=== PATIENT | male | born 1955 | race Caucasian/White ===

== ENCOUNTER 2017-07-30 05:37 | Emergency (ER) | payer BC ==
[2017-07-30 06:53] LABS: BILIRUBIN,URINE NEGATIVE (NEG); GLUCOSE,URINE NEGATIVE (NEG); NITRITE,URINE NEGATIVE (NEG); PH,URINE 5.5; PROTEIN,URINE 30 mg/dL (NEG-TRACE); UROBILINOGEN,URINE 0.2 mg/dL (0.2 mg/dL)
[2017-07-30 07:07] LABS: RBC,URINE TNTC /HPF (0-2)
[2017-07-30 07:08] LABS: ADD MAN DIFF? NO; BACTERIA,URINE FEW /HPF (0-FEW); WBC,URINE OCC /HPF (0-4)
[2017-07-30 07:11] LABS: BASO % 0 % (0-3); EOS % 0 % (0-3); HEMATOCRIT 44.7 % (39.0-53.0); HEMOGLOBIN 15.1 g/dL (13.0-17.5); LYMPH % 13 % (24-48); MEAN CORPUSCULAR HEMOGLOBIN 31 pg (25-35); MEAN CORPUSCULAR HGB CONC 34 g/dL (31-37); MEAN CORPUSCULAR VOLUME 93 fL (79-100); MONO % 13 % (0-9); NEUT % 74 % (31-73); PLATELET COUNT 214 x10^3/uL (140-400); RED BLOOD COUNT 4.82 x10^6/uL (4.30-5.70); RED CELL DISTRIBUTION WIDTH 12.5 % (11.5-14.5); WHITE BLOOD COUNT 8.2 x10^3/uL (4.0-11.0)
[2017-07-30] MEDS: MORPHINE SULFATE 4 MG/ML DISP.SYRIN. IV (07:11)
[2017-07-30 07:20] LABS: ANION GAP 11 (6-14); BLOOD UREA NITROGEN 13 mg/dL (8-26); BUN/CREATININE RATIO 11 (6-20); CALCIUM 8.5 mg/dL (8.5-10.1); CARBON DIOXIDE 29 mmol/L (21-32); CHLORIDE 101 mmol/L (98-107); CREATININE 1.2 mg/dL (0.7-1.3); GFR 61.1; GLUCOSE 161 mg/dL (70-99); POTASSIUM 4.4 mmol/L (3.5-5.1); SODIUM 141 mmol/L (136-145)
[2017-07-30 07:25] LABS: ALBUMIN 3.7 g/dL (3.4-5.0); ALBUMIN/GLOBULIN RATIO 0.8 (1.0-1.7); ALK PHOS 73 U/L (46-116); ALT (SGPT) 36 U/L (16-63); AST (SGOT) 33 U/L (15-37); TOTAL BILIRUBIN 0.4 mg/dL (0.2-1.0); TOTAL PROTEIN 8.1 g/dL (6.4-8.2)
[2017-07-30] MEDS: IV NORMAL SALINE 500ML BAG 500 ML IV (08:45)
[2017-07-30] MEDS: KETOROLAC 30 MG/ML INJ. IV (08:49)
== END 2017-07-30 09:30 | disposition home or self-care (01) ==
LOC: ER 05:37
DX: N20.0 Calculus of kidney (principal); Z86.73 Personal history of transient ischemic attack (TIA), and cerebral infarction without residual deficits
CPT/HCPCS: 36415; 51702; 74176; 80053; 81001; 85025; 96361; 96374; 96375; 99285-25; J1885; J2270; J7040

== ENCOUNTER 2017-09-15 01:29 | Inpatient (IN) | payer BC ==
[2017-09-15 01:37] LABS: POC GLUCOSE 121 mg/dL (70-99)
[2017-09-15 01:51] LABS: ADD MAN DIFF? NO
[2017-09-15 01:56] LABS: BASO # 0.1 x10^3/uL (0.0-0.2); BASO % 1 % (0-3); EOS # 0.2 x10^3/uL (0.0-0.7); EOS % 2 % (0-3); HEMATOCRIT 42.8 % (39.0-53.0); HEMOGLOBIN 14.8 g/dL (13.0-17.5); LYMPH # 3.2 x10^3/uL (1.0-4.8); LYMPH % 35 % (24-48); MEAN CORPUSCULAR HEMOGLOBIN 32 pg (25-35); MEAN CORPUSCULAR HGB CONC 35 g/dL (31-37); MEAN CORPUSCULAR VOLUME 93 fL (79-100); MONO # 1.1 x10^3/uL (0.0-1.1); MONO % 12 % (0-9); NEUT # 4.5 x10^3uL (1.8-7.7); NEUT % 50 % (31-73); PLATELET COUNT 233 x10^3/uL (140-400); RED BLOOD COUNT 4.61 x10^6/uL (4.30-5.70); RED CELL DISTRIBUTION WIDTH 12.7 % (11.5-14.5); WHITE BLOOD COUNT 9.1 x10^3/uL (4.0-11.0)
[2017-09-15 02:08] LABS: ANION GAP 11 (6-14); BLOOD UREA NITROGEN 9 mg/dL (8-26); BUN/CREATININE RATIO 9 (6-20); CALCIUM 8.5 mg/dL (8.5-10.1); CARBON DIOXIDE 26 mmol/L (21-32); CHLORIDE 103 mmol/L (98-107); GFR 75.5; GLUCOSE 134 mg/dL (70-99); POTASSIUM 3.7 mmol/L (3.5-5.1); SODIUM 140 mmol/L (136-145)
[2017-09-15 02:11] LABS: INR 0.9 (0.8-1.1); PARTIAL THROMBOPLASTIN TIME 30 SEC (24-38); PROTHROMBIN TIME PATIENT 11.9 SEC (11.7-14.0)
[2017-09-15 02:14] LABS: ALBUMIN 3.4 g/dL (3.4-5.0); ALBUMIN/GLOBULIN RATIO 0.8 (1.0-1.7); ALK PHOS 111 U/L (46-116); ALT (SGPT) 16 U/L (16-63); AST (SGOT) 9 U/L (15-37); TOTAL BILIRUBIN 0.3 mg/dL (0.2-1.0); TOTAL PROTEIN 7.7 g/dL (6.4-8.2)
[2017-09-15 02:17] LABS: TROPONINI < 0.017 ng/mL (0.000-0.055)
[2017-09-15 02:37] LABS: BILIRUBIN,URINE NEGATIVE (NEG); CLARITY,URINE CLEAR; COLOR,URINE YELLOW; GLUCOSE,URINE 250 mg/dL (NEG); NITRITE,URINE NEGATIVE (NEG); PROTEIN,URINE NEGATIVE (NEG-TRACE); UROBILINOGEN,URINE 0.2 mg/dL (0.2 mg/dL)
[2017-09-15] MEDS ORDERED: LABETALOL 20 MG/4 ML DISP.SYRIN. (02:51)
[2017-09-15] MEDS: LABETALOL 20 MG/4 ML DISP.SYRIN. IVP (02:59)
[2017-09-15 03:03] LABS: BACTERIA,URINE FEW /HPF (0-FEW); RBC,URINE OCC /HPF (0-2); WBC,URINE OCC /HPF (0-4)
[2017-09-15 03:04] LABS: SQUAMOUS EPITHELIAL CELL,UR FEW /LPF
[2017-09-15] MEDS: ALTEPLASE 2 MG VIAL IV (03:11)
[2017-09-15] MEDS: ALTEPLASE 81 MG IV (03:16)
[2017-09-15] MEDS ORDERED: ONDANSETRON PF 4 MG/2 ML VIAL. IV ×2 (03:30→07:45)
[2017-09-15] MEDS ORDERED: MORPHINE SULFATE 2 MG/ML DISP.SYRIN. IV (03:30)
[2017-09-15] MEDS: IV NORMAL SALINE 1000ML BAG 1,000 ML IV ×3 (04:26→23:30)
[2017-09-15] MEDS ORDERED: ACETAMINOPHEN 325 MG SUPP.RECT. PR (07:45)
[2017-09-15] MEDS ORDERED: ACETAMINOPHEN 325 MG TABLET. PO (07:45)
[2017-09-15] MEDS ORDERED: PNEUMOC CONJ VACC 23-VALENT 0.5 ML VIAL. VAX IM (09:00)
[2017-09-15] MEDS ORDERED: CONTRAST GIVEN MC (09:15)
[2017-09-15] MEDS: LOSARTAN POTASSIUM 50 MG TABLET. PO (09:30)
[2017-09-15] MEDS: FLUTICASONE 50MCG/NASAL SPRAY 16GM BOTTLE. NS (09:30)
[2017-09-15] MEDS ORDERED: ALPRAZolam 0.25 MG TABLET PO (09:30)
[2017-09-15] MEDS: ASPIRIN CHEWABLE 81 MG TABLET. PO (09:30)
[2017-09-15] MEDS: METOPROLOL SUCC 24HR ER 100 MG TAB.ER.24H. PO (09:30)
[2017-09-15] MEDS: sulfaSALAzine 500 MG TABLET PO ×2 (09:30→21:04)
[2017-09-15] MEDS: POTASSIUM CHLORIDE 20 MEQ TABLET.ER. PO ×2 (10:00→18:11)
[2017-09-15] MEDS: IOHEXOL 300 MG/ML 100ML VIAL. IV (17:42)
[2017-09-15] MEDS ORDERED: SIMVASTATIN 20 MG TABLET PO (21:00)
[2017-09-15] MEDS: ATORVASTATIN CALCIUM 40 MG TABLET. PO (21:04)
[2017-09-15 23:10] LABS: MRSA BY PCR Negative (Negative)
[2017-09-16 02:50] LABS: ADD MAN DIFF? NO
[2017-09-16 02:54] LABS: BASO # 0.1 x10^3/uL (0.0-0.2); BASO % 1 % (0-3); EOS # 0.2 x10^3/uL (0.0-0.7); EOS % 2 % (0-3); HEMATOCRIT 42.9 % (39.0-53.0); HEMOGLOBIN 14.7 g/dL (13.0-17.5); LYMPH # 2.8 x10^3/uL (1.0-4.8); LYMPH % 35 % (24-48); MEAN CORPUSCULAR HEMOGLOBIN 32 pg (25-35); MEAN CORPUSCULAR HGB CONC 34 g/dL (31-37); MEAN CORPUSCULAR VOLUME 93 fL (79-100); MONO # 0.8 x10^3/uL (0.0-1.1); MONO % 10 % (0-9); NEUT # 4.2 x10^3uL (1.8-7.7); NEUT % 52 % (31-73); PLATELET COUNT 230 x10^3/uL (140-400); RED CELL DISTRIBUTION WIDTH 13.3 % (11.5-14.5)
[2017-09-16 03:11] LABS: ALBUMIN 3.4 g/dL (3.4-5.0); ALBUMIN/GLOBULIN RATIO 0.8 (1.0-1.7); ALK PHOS 66 U/L (46-116); ALT (SGPT) 29 U/L (16-63); ANION GAP 11 (6-14); AST (SGOT) 19 U/L (15-37); BLOOD UREA NITROGEN 8 mg/dL (8-26); BUN/CREATININE RATIO 8 (6-20); CALCIUM 8.4 mg/dL (8.5-10.1); CARBON DIOXIDE 26 mmol/L (21-32); CHLORIDE 102 mmol/L (98-107); CHOLESTEROL 174 mg/dL (0-200); GFR 75.5; GLUCOSE 153 mg/dL (70-99); HDLC 41 mg/dL (40-60); LDLC 89 mg/dL (0-100); NON-HDL CHOLESTEROL 133 mg/dL (0-129); POTASSIUM 3.8 mmol/L (3.5-5.1); SODIUM 139 mmol/L (136-145); TOTAL BILIRUBIN 0.4 mg/dL (0.2-1.0); TOTAL PROTEIN 7.5 g/dL (6.4-8.2); TRIGLYCERIDES 221 mg/dL (0-150); VLDLC 44 mg/dL (0-40)
[2017-09-16 03:12] LABS: CHOLESTEROL/HDL RATIO 4.2
[2017-09-16] MEDS ORDERED: ASPIRIN CHEWABLE 81 MG TABLET. PO (08:00)
[2017-09-16] MEDS: METOPROLOL SUCC 24HR ER 100 MG TAB.ER.24H. PO (09:00)
[2017-09-16] MEDS: sulfaSALAzine 500 MG TABLET PO ×2 (09:00→21:02)
[2017-09-16] MEDS: LOSARTAN POTASSIUM 50 MG TABLET. PO (09:00)
[2017-09-16] MEDS: FLUTICASONE 50MCG/NASAL SPRAY 16GM BOTTLE. NS (13:14)
[2017-09-16] MEDS: CLOPIDOGREL BISULFATE 75 MG TABLET PO (17:12)
[2017-09-16] MEDS: ATORVASTATIN CALCIUM 40 MG TABLET. PO (21:03)
[2017-09-17] MEDS: METOPROLOL SUCC 24HR ER 100 MG TAB.ER.24H. PO (08:35)
[2017-09-17] MEDS: CLOPIDOGREL BISULFATE 75 MG TABLET PO (08:35)
[2017-09-17] MEDS: FLUTICASONE 50MCG/NASAL SPRAY 16GM BOTTLE. NS (08:35)
[2017-09-17] MEDS: LOSARTAN POTASSIUM 50 MG TABLET. PO (08:36)
[2017-09-17] MEDS: sulfaSALAzine 500 MG TABLET PO ×2 (08:36→21:08)
[2017-09-17] MEDS ORDERED: PNEUMOCOCCAL VAX SCREEN BY RX. MC (09:00)
[2017-09-17] MEDS: PNEUMOC CONJ VACC 23-VALENT 0.5 ML VIAL. VAX IM (11:36)
[2017-09-17] MEDS: metFORMIN 500 MG TABLET PO (16:50)
[2017-09-17] MEDS: ATORVASTATIN CALCIUM 40 MG TABLET. PO (21:08)
[2017-09-18] MEDS: FLUTICASONE 50MCG/NASAL SPRAY 16GM BOTTLE. NS (09:00)
[2017-09-18] MEDS: sulfaSALAzine 500 MG TABLET PO (09:42)
[2017-09-18] MEDS: CLOPIDOGREL BISULFATE 75 MG TABLET PO (09:42)
[2017-09-18] MEDS: METOPROLOL SUCC 24HR ER 100 MG TAB.ER.24H. PO (09:42)
[2017-09-18] MEDS: LOSARTAN POTASSIUM 50 MG TABLET. PO (09:43)
[2017-09-18] MEDS: metFORMIN 500 MG TABLET PO (09:43)
== END 2017-09-18 14:20 | DRG 63 ==
LOC: ER 01:29 → 6 SOUTH 09-16 15:27 → 1 WEST ICU 02:44
PROC: 3E03317 Introduction of Other Thrombolytic into Peripheral Vein, Percutaneous Approach (ICD-10-PCS; principal; 2017-09-15)
PROC: 5A09357 Assistance with Respiratory Ventilation, Less than 24 Consecutive Hours, Continuous Positive Airway Pressure (ICD-10-PCS; 2017-09-15)
PROC: 5A09357 Assistance with Respiratory Ventilation, Less than 24 Consecutive Hours, Continuous Positive Airway Pressure (ICD-10-PCS; 2017-09-15)
PROC: 5A09357 Assistance with Respiratory Ventilation, Less than 24 Consecutive Hours, Continuous Positive Airway Pressure (ICD-10-PCS; 2017-09-15)
PROC: 5A09357 Assistance with Respiratory Ventilation, Less than 24 Consecutive Hours, Continuous Positive Airway Pressure (ICD-10-PCS; 2017-09-15)
DX: I63.9 Cerebral infarction, unspecified (principal); E11.51 Type 2 diabetes mellitus with diabetic peripheral angiopathy without gangrene; E66.9 Obesity, unspecified; Z68.39 Body mass index [BMI] 39.0-39.9, adult; E78.00 Pure hypercholesterolemia, unspecified; E78.1 Pure hyperglyceridemia; E78.5 Hyperlipidemia, unspecified; F41.9 Anxiety disorder, unspecified; I10 Essential (primary) hypertension; L40.9 Psoriasis, unspecified; M19.90 Unspecified osteoarthritis, unspecified site; N20.0 Calculus of kidney; Z86.73 Personal history of transient ischemic attack (TIA), and cerebral infarction without residual deficits; Z87.442 Personal history of urinary calculi
CPT/HCPCS: 36415; 37195; 70450; 70496; 70498; 70551; 71045; 80053; 80061; 81001; 82962; 84484; 85025; 85610; 85730; 87641; 90732; 92526-GN; 92610-GN; 93005; 93306; 97110-GO; 97110-GP; 97112-GO; 97116-GP; 97162-GP; 97165-GO; 97530-GO; 97530-GP; 97535-GO; 99291; 99291-25; J2060; J2997; J3490; J7030; Q9967

== ENCOUNTER 2017-10-06 09:20 | Emergency (ER) | payer BC ==
[2017-10-06 09:49] LABS: ADD MAN DIFF? NO
[2017-10-06 09:57] LABS: BASO # 0.1 x10^3/uL (0.0-0.2); BASO % 1 % (0-3); EOS # 0.1 x10^3/uL (0.0-0.7); EOS % 2 % (0-3); HEMATOCRIT 43.4 % (39.0-53.0); HEMOGLOBIN 14.5 g/dL (13.0-17.5); LYMPH # 2.7 x10^3/uL (1.0-4.8); LYMPH % 36 % (24-48); MEAN CORPUSCULAR HEMOGLOBIN 31 pg (25-35); MEAN CORPUSCULAR HGB CONC 33 g/dL (31-37); MEAN CORPUSCULAR VOLUME 93 fL (79-100); MONO # 0.7 x10^3/uL (0.0-1.1); MONO % 10 % (0-9); NEUT # 3.9 x10^3uL (1.8-7.7); NEUT % 51 % (31-73); PLATELET COUNT 279 x10^3/uL (140-400); RED BLOOD COUNT 4.67 x10^6/uL (4.30-5.70); RED CELL DISTRIBUTION WIDTH 12.6 % (11.5-14.5); WHITE BLOOD COUNT 7.5 x10^3/uL (4.0-11.0)
[2017-10-06 10:04] LABS: ANION GAP 6 (6-14); BLOOD UREA NITROGEN 10 mg/dL (8-26); BUN/CREATININE RATIO 9 (6-20); CALCIUM 8.8 mg/dL (8.5-10.1); CARBON DIOXIDE 30 mmol/L (21-32); CHLORIDE 105 mmol/L (98-107); CREATININE 1.1 mg/dL (0.7-1.3); GFR 67.6; GLUCOSE 121 mg/dL (70-99); POTASSIUM 3.6 mmol/L (3.5-5.1); SODIUM 141 mmol/L (136-145)
[2017-10-06 10:10] LABS: ALBUMIN 3.5 g/dL (3.4-5.0); ALBUMIN/GLOBULIN RATIO 0.8 (1.0-1.7); ALK PHOS 83 U/L (46-116); ALT (SGPT) 34 U/L (16-63); AST (SGOT) 21 U/L (15-37); MAGNESIUM 2.2 mg/dL (1.8-2.4); TOTAL BILIRUBIN 0.4 mg/dL (0.2-1.0); TOTAL PROTEIN 7.7 g/dL (6.4-8.2)
[2017-10-06 10:12] LABS: TROPONINI < 0.017 ng/mL (0.000-0.055)
[2017-10-06 10:13] LABS: INR 1.1 (0.8-1.1); PARTIAL THROMBOPLASTIN TIME 29 SEC (24-38); PROTHROMBIN TIME PATIENT 13.2 SEC (11.7-14.0)
[2017-10-06] MEDS: ASPIRIN CHEWABLE 81 MG TABLET. PO (11:15)
== END 2017-10-06 11:58 | disposition home or self-care (01) ==
LOC: ER 09:20
DX: I63.9 Cerebral infarction, unspecified (principal); E11.9 Type 2 diabetes mellitus without complications; E78.00 Pure hypercholesterolemia, unspecified; I10 Essential (primary) hypertension; Z86.73 Personal history of transient ischemic attack (TIA), and cerebral infarction without residual deficits; Z87.442 Personal history of urinary calculi
CPT/HCPCS: 36415; 70450; 80053; 83735; 84484; 85025; 85610; 85730; 93005; 99285-25

== ENCOUNTER 2018-06-07 18:57 | Inpatient (IN) | payer BC ==
[~2018-06-07] VITALS: Ht 177.8 cm; Wt 124.5 kg
[~2018-06-07 18:57] MED LIST: ASPI-630 PO; ATOR40TA59 PO; CALC60OI TP; CETI10CA PO; CLOP75TA PO; FLUT9.9S NS; FOLI0.8C PO; GLUC1CAP48 PO; HYDR-971 PO; IBUP-1027 PO; LOSA50TA7 PO; METF500T16 PO; METO-313 PO; METO50TA29 PO; MULT1TAB49 PO; OMEG1CAP6 PO; OMEP20TA8 PO; SULF500T7 PO
[2018-06-07 19:23] LABS: BASO # 0.1 x10^3/uL (0.0-0.2); BASO % 1 % (0-3); EOS # 0.1 x10^3/uL (0.0-0.7); EOS % 2 % (0-3); HEMATOCRIT 42.9 % (39.0-53.0); LYMPH # 3.5 x10^3/uL (1.0-4.8); LYMPH % 38 % (24-48); MEAN CORPUSCULAR HEMOGLOBIN 32 pg (25-35); MEAN CORPUSCULAR HGB CONC 35 g/dL (31-37); MEAN CORPUSCULAR VOLUME 92 fL (79-100); MONO # 0.8 x10^3/uL (0.0-1.1); MONO % 8 % (0-9); NEUT # 4.7 x10^3uL (1.8-7.7); NEUT % 51 % (31-73); PLATELET COUNT 246 x10^3/uL (140-400); RED BLOOD COUNT 4.66 x10^6/uL (4.30-5.70); RED CELL DISTRIBUTION WIDTH 12.9 % (11.5-14.5); WHITE BLOOD COUNT 9.1 x10^3/uL (4.0-11.0)
--- NOTE | 2018-06-07 19:23 | RAD ---
CT HEAD WO CONTRAST Clinical indications: CODE STROKE; RIGHT SIDED WEAKNESS COMPARISON: October 06, 2017. Technique: Noncontrast axial cross sectional scanning of the head was performed. PQRS compliance Statement One or more of the following individualized dose reduction techniques were utilized for this study: 1. Automated exposure control 2. Adjustment of the mA and/or kV according to patient size 3. Use of iterative reconstruction technique Findings: No acute intracranial hemorrhage or midline shift or mass-effect or hydrocephalus or extra-axial fluid collection is seen. Old lacunar infarct of the left thalamus is again seen. No new focal hypodense area or sulci effacement is seen to indicate an acute infarct or edema radiographically. No skull fracture or pneumocephalus is seen. No opacification of the mastoid sinuses or the paranasal sinuses is seen. The maxillary sinuses are not completely seen in this study. Impression: No new intracranial abnormality is seen. Note-this critical result was called to Dr. Dover at 7:19 PM on June 07, 2018. Electronically signed by: Chetan Velazquez MD (06/07/2018 7:20 PM) [facility]
[2018-06-07 19:34] LABS: CALCIUM 9.2 mg/dL (8.5-10.1); CREATININE 1.1 mg/dL (0.7-1.3); GFR 67.4; POTASSIUM 3.8 mmol/L (3.5-5.1)
[2018-06-07 19:40] LABS: ALBUMIN 3.7 g/dL (3.4-5.0); ALBUMIN/GLOBULIN RATIO 0.9 (1.0-1.7); TOTAL BILIRUBIN 0.4 mg/dL (0.2-1.0); TOTAL PROTEIN 7.6 g/dL (6.4-8.2)
[2018-06-07 19:49] LABS: PROTHROMBIN TIME PATIENT 12.7 SEC (11.7-14.0)
--- NOTE | 2018-06-07 19:51 | PHYS DOC ---
Past Medical History Past Medical History: CVA, Diabetes-Type II, High Cholesterol, Hypertension, Kidney Stone, TIA, Other Additional Past Medical Histor: Ulcerative colitis. Past Surgical History: Other Additional Past Surgical Histo: Hernia,L)hand surgery. Alcohol Use: Occasionally Drug Use: None Adult General Chief Complaint Chief Complaint: NEURO SYMPTOMS/DEFICITS HPI HPI Patient is a 63 year old male presenting with weakness of the right side of the body. Onset he says between 2 and 2:30 PM he knows for sure it was before 3: 00 because he was at a vacuum store that closed at 3:00 when the symptoms started it was probably before 2:30 PM he says. He notes increased weakness of the right arm and also numbness to the right face right arm and right leg. He does have some very mild numbness left over in the right upper extremity after a thalamic infarct in September but the symptoms were worse this afternoon. He has had waxing and waning symptoms since September so they decided to wait at home for couple of hours before they came to the emergency room patient denies chest pain or headache Review of Systems Review of Systems Constitutional: Denies fever or chills [] Eyes: Denies change in visual acuity, redness, or eye pain [] Cardiovascular: No additional information not addressed in HPI [] GI: Denies abdominal pain, nausea, vomiting, bloody stools or diarrhea [] All other systems were reviewed and found to be within normal limits, except as documented in this note. Current Medications Current Medications Current Medications Medications (Trade) Dose Ordered Sig/Tree Start Time Stop Time Status Last Admin Dose Admin Aspirin (Children'S Aspirin) 81 mg 1X ONCE 06/07/18 20:00 06/07/18 20:01 UNV Clopidogrel Bisulfate (Plavix) 300 mg 1X ONCE 06/07/18 20:00 06/07/18 20:01 UNV Allergies Allergies Allergies Coded Allergies Type Severity Reaction Last Updated Verified No Known Drug Allergies 07/30/17 No Physical Exam Physical Exam Constitutional: Well developed, well nourished, no acute distress, non-toxic appearance. [] HENT: Normocephalic, atraumatic, bilateral external ears normal, oropharynx moist, no oral exudates, nose normal. [] Eyes: PERRLA, EOMI, conjunctiva normal, no discharge. [] Neck: Normal range of motion, no tenderness, supple, no stridor. [] Cardiovascular:Heart rate regular rhythm, no murmur [] Lungs & Thorax: Bilateral breath sounds clear to auscultation [] Abdomen: Bowel sounds normal, soft, no tenderness, no masses, no pulsatile masses. [] Skin: Warm, dry, no erythema, no rash. [] Back: No tenderness, no CVA tenderness. [] Extremities: No tenderness, no cyanosis, no clubbing, ROM intact, no edema. [] Neurologic: Alert and oriented X 3, DECREASED sensation to light touch right arm and face. Subtle drift on the right upper extremity otherwise intact Psychologic: Affect normal, judgement normal, mood normal. [] Current Patient Data Vital Signs Vital Signs Date Time Temp Pulse Resp B/P (MAP) Pulse Ox O2 Delivery O2 Flow Rate FiO2 06/07/18 19:09 97.8 73 16 176/87 (116) 97 Room Air 97.8 Lab Values Laboratory Tests Test 06/07/18 19:13 06/07/18 19:15 06/07/18 19:33 Glucose (Fingerstick) 132 mg/dL (70-99) H White Blood Count 9.1 x10^3/uL (4.0-11.0) Red Blood Count 4.66 x10^6/uL (4.30-5.70) Hemoglobin 15.0 g/dL (13.0-17.5) Hematocrit 42.9 % (39.0-53.0) Mean Corpuscular Volume 92 fL (79-100) Mean Corpuscular Hemoglobin 32 pg (25-35) Mean Corpuscular Hemoglobin Concent 35 g/dL (31-37) Red Cell Distribution Width 12.9 % (11.5-14.5) Platelet Count 246 x10^3/uL (140-400) Neutrophils (%) (Auto) 51 % (31-73) Lymphocytes (%) (Auto) 38 % (24-48) Monocytes (%) (Auto) 8 % (0-9) Eosinophils (%) (Auto) 2 % (0-3) Basophils (%) (Auto) 1 % (0-3) Neutrophils # (Auto) 4.7 x10^3uL (1.8-7.7) Lymphocytes # (Auto) 3.5 x10^3/uL (1.0-4.8) Monocytes # (Auto) 0.8 x10^3/uL (0.0-1.1) Eosinophils # (Auto) 0.1 x10^3/uL (0.0-0.7) Basophils # (Auto) 0.1 x10^3/uL (0.0-0.2) Sodium Level 143 mmol/L (136-145) Potassium Level 3.8 mmol/L (3.5-5.1) Chloride Level 104 mmol/L (98-107) Carbon Dioxide Level 30 mmol/L (21-32) Anion Gap 9 (6-14) Blood Urea Nitrogen 12 mg/dL (8-26) Creatinine 1.1 mg/dL (0.7-1.3) Estimated GFR (Cockcroft-Gault) 67.4 BUN/Creatinine Ratio 11 (6-20) Glucose Level 134 mg/dL (70-99) H Calcium Level 9.2 mg/dL (8.5-10.1) Total Bilirubin 0.4 mg/dL (0.2-1.0) Aspartate Amino Transferase (AST) 21 U/L (15-37) Alanine Aminotransferase (ALT) 23 U/L (16-63) Alkaline Phosphatase 89 U/L (46-116) Troponin I Quantitative < 0.017 ng/mL (0.000-0.055) Total Protein 7.6 g/dL (6.4-8.2) Albumin 3.7 g/dL (3.4-5.0) Albumin/Globulin Ratio 0.9 (1.0-1.7) L Ethyl Alcohol Level < 10 mg/dL (0-10) Prothrombin Time 12.7 SEC (11.7-14.0) Prothrombin Time INR 1.0 (0.8-1.1) Laboratory Tests 06/07/18 19:15 Laboratory Tests 06/07/18 19:15 EKG EKG []Patient is in sinus rhythm on the monitor. EKG shows a rate of 67 I do see P waves there is a poor baseline difficult to say with certainty but I think it is sinus rhythm. No STEMI Radiology/Procedures Radiology/Procedures [] Impressions: PQRS compliance Statement One or more of the following individualized dose reduction techniques were utilized for this study: 1. Automated exposure control 2. Adjustment of the mA and/or kV according to patient size 3. Use of iterative reconstruction technique Findings: No acute intracranial hemorrhage or midline shift or mass-effect or hydrocephalus or extra-axial fluid collection is seen. Old lacunar infarct of the left thalamus is again seen. No new focal hypodense area or sulci effacement is seen to indicate an acute infarct or edema radiographically. No skull fracture or pneumocephalus is seen. No opacification of the mastoid sinuses or the paranasal sinuses is seen. The maxillary sinuses are not completely seen in this study. Impression: No new intracranial abnormality is seen. Note-this critical result was called to Dr. Dover at 7:19 PM on June 07, 2018. Electronically signed by: Chetan Velazquez MD (06/07/2018 7:20 PM) [facility] Course & Med Decision Making Course & Med Decision Making Pertinent Labs and Imaging studies reviewed. (See chart for details) 63-year-old male presenting with right-sided numbness and weakness slightly worse than baseline history of a left thalamus infarct in the past. CT head was negative not a TPA candidate due to time of onset. Discussed with eli give 300 plavix and aspirin. (pt switched from plavix to aggrenox recently (pt tells me no side effect to plavix doesnt know why he got switched) plavix/aspirni ordered d/w riffel 8 pm, admit cva inpatient. Dragon Disclaimer Dragon Disclaimer This electronic medical record was generated, in whole or in part, using a voice recognition dictation system. Departure Departure Impression: Primary Impression: CVA (cerebral vascular accident) Disposition: ADMITTED INPATIENT Admitting Physician: Other Condition: STABLE Referrals: LISSETTE IZQUIERDO MD (PCP) NIHSS Stroke Scale NIH Stroke Scale: NIH Stroke Scale Response (Comments) Value Level of Consciousness: 0 Alert/Responsive 0 LOC Questions: 0 Answers both correctly 0 LOC Commands: 0 Performs both tasks 0 Best Gaze: 0 Normal 0 Visual: 0 No visual loss 0 Facial Palsy: 0 Normal, symmetrical 0 Motor - Left Arm 0 No drift 0 Motor - Right Arm 1 Drifts but can hold 1 Motor - Left Leg 0 No drift 0 Motor: Right Leg 0 No drift 0 Limb Ataxia: 1 One limb 1 Sensory: 1 Mid to moderate loss 1 Best Language: 0 Normal 0 Dysathria: 0 Normal 0 Extinction and Inattention: 0 Normal 0 Total 3 LENAGHAN,KATIANA MD Jun 07, 2018 19:51
[2018-06-07] MEDS ORDERED: CLOPIDOGREL BISULFATE 75 MG TABLET PO ONE (20:00)
[2018-06-07] MEDS ORDERED: ASPIRIN CHEWABLE 81 MG TABLET. PO ONE (20:00)
[2018-06-07] MEDS ORDERED: ATORVASTATIN CA80 MG PO (21:38)
[2018-06-07 21:39] VITALS: BP 139/73
[2018-06-07 21:43] LABS: BILIRUBIN,URINE NEGATIVE (NEG); CLARITY,URINE CLEAR; COLOR,URINE YELLOW; NITRITE,URINE NEGATIVE (NEG); PROTEIN,URINE NEGATIVE (NEG-TRACE); UROBILINOGEN,URINE 0.2 mg/dL (0.2 mg/dL)
[2018-06-07] MEDS ORDERED: ASPI1CPM PO (21:45)
[2018-06-07 21:54] LABS: BACTERIA,URINE 0 /HPF (0-FEW); RBC,URINE 0 /HPF (0-2); WBC,URINE 0 /HPF (0-4)
[2018-06-07] MEDS ORDERED: DEXTROSE 50% 25 GM / 50ML DISP.SYRIN. IV PRN (22:00)
[2018-06-07] MEDS: LOSARTAN POTASSIUM 50 MG TABLET. PO SCH (23:04)
[2018-06-07] MEDS: ATORVASTATIN CALCIUM 40 MG TABLET. PO SCH (23:04)
[2018-06-07 23:10] VITALS: BP 130/69
[2018-06-07] MEDS ORDERED: ACETAMINOPHEN 325 MG TABLET. PO PRN (23:30)
[2018-06-07] MEDS ORDERED: LACTULOSE 20 GM/30 ML SOLUTION. PO PRN (23:30)
[2018-06-07] MEDS ORDERED: ONDANSETRON PF 4 MG/2 ML VIAL. IV PRN (23:30)
--- NOTE | 2018-06-07 23:37 | PDOC1 ---
History and Physical Date of Admission Date of Admission DATE: 06/07/18 TIME: 23:37 Identification/Chief Complaint Chief Complaint Right sided weakness Source Source: Patient History of Present Illness History of Present Illness 63 yo M w/ PMHx CVA (left thalamic infarct), AURA on CPAP, HTN, Ulcerative colitis p/w right side of the body weakness around 1400 today, 06/07/18 Increased weakness of the right arm and also numbness to the right face right arm and right leg. He does have some very mild numbness in the right upper extremity (worse than his very slight baseline residual deficit). This has happened occasionally since September, but never lasted more than 30 minutes or so, still has symptoms present now. Was outside TPA window and low NIH stroke scale per ED, underwent CT head showing old left lacunar infarct of the thalamus and no new infarcts or hemorrhage. He was loaded with 300mg of plavix and ASA after d/w with neurology. EKG NSR. Glucose 134 and initial SBP was >170mm/Hg. Of note he was recently changed to aggrenox from plavix outpatient, he is not aware of why this change occurred. Past Medical History Cardiovascular: HTN, Hyperlipidemia, Other CENTRAL NERVOUS SYSTEM: CVA, TIA GI: GI bleed, Inflam bowel disease Musculoskeletal: Osteoarthritis Renal/: Other Endocrine: Diabetes Past Surgical History Past Surgical History: Hernia Repair, Other Family History Family History: No Significant Social History Smoke: No ALCOHOL: rare Drugs: None Current Medications Current Medications Current Medications Clopidogrel Bisulfate (Plavix) 300 mg 1X ONCE PO Last administered on at 20:12; Start 06/07/18 at 20:00; Stop 06/07/18 at 20:01; Status DC Aspirin (Children'S Aspirin) 81 mg 1X ONCE PO Last administered on 06/07/18at 20:11; Start 06/07/18 at 20:00; Stop 06/07/18 at 20:01; Status DC Losartan Potassium (Cozaar) 50 mg QHS PO Last administered on 06/07/18at 23:04; Start 06/07/18 at 22:00 Metoprolol Succinate (Toprol Xl) 100 mg DAILY PO ; Start 06/08/18 at 09:00 Fish Oil (Fish Oil) 1,000 mg BID PO ; Start 06/08/18 at 09:00 Atorvastatin Calcium (Lipitor) 80 mg HS PO Last administered on 06/07/18at 23:04 ; Start 06/07/18 at 22:00 Fluticasone Propionate (Flonase) 2 spray DAILY NS ; Start 06/08/18 at 09:00 Metformin HCl (Glucophage) 500 mg BIDWMEALS PO ; Start 06/08/18 at 08:00 Pantoprazole Sodium (Protonix) 40 mg DAILYAC PO ; Start 06/08/18 at 07:30 Sulfasalazine (Azulfidine) 500 mg BID PO ; Start 06/08/18 at 09:00 Insulin Human Lispro (HumaLOG) 0-5 UNITS TIDWMEALS SQ ; Start 06/08/18 at 08:00 Dextrose (Dextrose 50%-Water Syringe) 12.5 gm PRN Q15MIN PRN IV SEE COMMENTS; Start 06/07/18 at 22:00 Clopidogrel Bisulfate (Plavix) 75 mg DAILYWBKFT PO ; Start 06/08/18 at 08:00 Ondansetron HCl (Zofran) 4 mg PRN Q6HRS PRN IV NAUSEA/VOMITING; Start 06/07/18 at 23:30 Acetaminophen (Tylenol) 650 mg PRN Q6HRS PRN PO Headaches, Temp > 101.5F; Start 06/07/18 at 23:30 Senna/Docusate Sodium (Senna Plus) 1 tab BID PO ; Start 06/08/18 at 09:00 Lactulose (Lactulose) 20 gm PRN Q12HR PRN PO CONSTIPATION; Start 06/07/18 at 23 :30 Heparin Sodium (Porcine) (Heparin Sodium) 5,000 unit Q8HRS SQ ; Start 06/08/18 at 06:00 Active Scripts Active Reported Aggrenox 25 Mg-200 Mg Capsule (Aspirin/Dipyridamole) 1 Each Cpmp.12hr 1 Each PO DAILY Atorvastatin Calcium 80 Mg Tablet 80 Mg PO HS Metformin Hcl 500 Mg Tablet 500 Mg PO BIDWMEALS Sulfasalazine 500 Mg Tablet 500 Mg PO BID Omeprazole 20 Mg Tablet.dr 1 Tab PO DAILY Metoprolol Succinate 50 Mg Tab.er.24h 100 Mg PO Losartan Potassium 50 Mg Tablet 50 Mg PO DAILY Folic Acid 0.8 Mg Capsule 0.8 Mg PO Flonase Allergy Relief (Fluticasone Propionate) 9.9 Ml [place].susp 2 Sprays NS DAILY Fish Oil 1,000 Mg Capsule ([place]-3 Fatty Acids/Fish Oil) 1 Each Capsule 1 Each PO BID Daily Meg (Multivitamin) 1 Each Tablet 1 Each PO Aspirin 81 Mg Tab.chew 1 Tab PO DAILY Zyrtec (Cetirizine Hcl) 10 Mg Capsule 10 Mg PO Allergies Allergies: Coded Allergies: No Known Drug Allergies (Unverified , 07/30/17) ROS General: No: Chills, Night Sweats, Fatigue, Malaise, Appetite, Other PSYCHOLOGICAL ROS: No: Anxiety, Behavioral Disorder, Concentration difficultie , Decreased libido, Depression, Disorientation, Hallucinations, Hostility, Irritablity, Memory difficulties, Mood Swings, Obsessive thoughts, Physical abuse, Sexual abuse, Sleep disturbances, Suicidal ideation, Other Eyes: No Blurry vision, No Decreased vision, No Double vision, No Dry eyes, No Excessive tearing, No Eye Pain, No Itchy Eyes, No Loss of vision, No Photophobia , No Scotomata, No Uses contacts, No Uses glasses, No Other HEENT: No: Heacaches, Visual Changes, Hearing change, Nasal congestion, Nasal discharge, Oral lesions, Sinus pain, Sore Throat, Epistaxis, Sneezing, Snoring, Tinnitus, Vertigo, Vocal changes, Other ALLERGY AND IMMUNOLOGY: No: Hives, Insect Bite Sensitivity, Itchy/Watery Eyes, Nasal Congestion, Post Nasal Drip, Seasonal Allergies, Other Hematological and Lymphatic: No: Bleeding Problems, Blood Clots, Blood Transfusions, Brusing, Night Sweats, Pallor, Swollen Lymph Nodes, Other ENDOCRINE: No: Breast Changes, Galactorrhea, Hair Pattern Changes, Hot Flashes , Malaise/lethargy, Mood Swings, Palpitations, Polydipsia/polyuria, Skin Changes , Temperature Intolerance, Unexpected Weight Changes, Other Respiratory: No: Cough, Hemoptysis, Orthopnea, Pleuritic Pain, Shortness of breath, SOB with excertion, Sputum Changes, Stridor, Tachypnea, Wheezing, Other Cardiovascular: No Chest Pain, No Palpitations, No Orthopnea, No Paroxysmal Noc. Dyspnea, No Edema, No Lt Headedness, No Other Gastrointestinal: No Nausea, No Vomiting, No Abdominal Pain, No Diarrhea, No Constipation, No Melena, No Hematochezia, No Other Genitourinary: No Dysuria, No Frequency, No Incontinence, No Hematuria, No Retention, No Discharge, No Urgency, No Pain, No Flank Pain, No Other, No , No , No , No , No , No , No Musculoskeletal: No Gait Disturbance, No Joint Pain, No Joint Stiffness, No Joint Swelling, No Muscle Pain, No Muscular Weakness, No Pain In:, No Swelling In:, No Other Neurological: Yes Impaired Coord/balance, Yes Numbness/Tingling, Yes Weakness; No Behavorial Changes, No Bowel/Bladder ControlChng, No Confusion, No Dizziness, No Gait Disturbance, No Headaches, No Memory Loss, No Seizures, No Speech Problems, No Tremors, No Visual Changes, No Other Skin: No Dry Skin, No Eczema, No Hair Changes, No Lumps, No Mole Changes, No Mottling, No Nail Changes, No Pruritus, No Rash, No Skin Lesion Changes, No Other, No Acne Physical Exam General: Alert, Oriented X3, Cooperative, No acute distress HEENT: Atraumatic, PERRLA, EOMI, Mucous membr. moist/pink Lungs: Clear to auscultation, Normal air movement Heart: S1S2, RRR, no murmurs Abdomen: Normal bowel sounds, Soft, No tenderness, No hepatosplenomegaly, No masses Extremities: No clubbing, No cyanosis, No edema, Normal pulses, No tenderness/ swelling Skin: No rashes, No breakdown, No significant lesion Neuro: Normal speech, Normal tone, Cranial nerves 3-12 NL, Reflexes 2+, Other ( Decreased sensation on RUE and 4+ strength in tearer press clipping and forearm as well as shoulder) Psych/Mental Status: Mental status NL, Mood NL Vitals Vitals Vital Signs Date Time Temp Pulse Resp B/P (MAP) Pulse Ox O2 Delivery O2 Flow Rate FiO2 06/07/18 23:10 97.9 63 18 130/69 (89) 96 Room Air 97.9 Labs Labs Laboratory Tests Test 06/07/18 19:13 06/07/18 19:15 06/07/18 19:33 06/07/18 21:30 Glucose (Fingerstick) 132 mg/dL (70-99) 118 mg/dL (70-99) White Blood Count 9.1 x10^3/uL (4.0-11.0) Red Blood Count 4.66 x10^6/uL (4.30-5.70) Hemoglobin 15.0 g/dL (13.0-17.5) Hematocrit 42.9 % (39.0-53.0) Mean Corpuscular Volume 92 fL (79-100) Mean Corpuscular Hemoglobin 32 pg (25-35) Mean Corpuscular Hemoglobin Concent 35 g/dL (31-37) Red Cell Distribution Width 12.9 % (11.5-14.5) Platelet Count 246 x10^3/uL (140-400) Neutrophils (%) (Auto) 51 % (31-73) Lymphocytes (%) (Auto) 38 % (24-48) Monocytes (%) (Auto) 8 % (0-9) Eosinophils (%) (Auto) 2 % (0-3) Basophils (%) (Auto) 1 % (0-3) Neutrophils # (Auto) 4.7 x10^3uL (1.8-7.7) Lymphocytes # (Auto) 3.5 x10^3/uL (1.0-4.8) Monocytes # (Auto) 0.8 x10^3/uL (0.0-1.1) Eosinophils # (Auto) 0.1 x10^3/uL (0.0-0.7) Basophils # (Auto) 0.1 x10^3/uL (0.0-0.2) Sodium Level 143 mmol/L (136-145) Potassium Level 3.8 mmol/L (3.5-5.1) Chloride Level 104 mmol/L (98-107) Carbon Dioxide Level 30 mmol/L (21-32) Anion Gap 9 (6-14) Blood Urea Nitrogen 12 mg/dL (8-26) Creatinine 1.1 mg/dL (0.7-1.3) Estimated GFR (Cockcroft-Gault) 67.4 BUN/Creatinine Ratio 11 (6-20) Glucose Level 134 mg/dL (70-99) Calcium Level 9.2 mg/dL (8.5-10.1) Total Bilirubin 0.4 mg/dL (0.2-1.0) Aspartate Amino Transf (AST/SGOT) 21 U/L (15-37) Alanine Aminotransferase (ALT/SGPT) 23 U/L (16-63) Alkaline Phosphatase 89 U/L (46-116) Troponin I Quantitative < 0.017 ng/mL (0.000-0.055) Total Protein 7.6 g/dL (6.4-8.2) Albumin 3.7 g/dL (3.4-5.0) Albumin/Globulin Ratio 0.9 (1.0-1.7) Ethyl Alcohol Level < 10 mg/dL (0-10) Prothrombin Time 12.7 SEC (11.7-14.0) Prothromb Time International Ratio 1.0 (0.8-1.1) Test 06/07/18 21:35 Urine Collection Type Unknown Urine Color Yellow Urine Clarity Clear Urine pH 7.0 Urine Specific [place] 1.015 Urine Protein Negative mg/dL (NEG-TRACE) Urine Glucose (UA) Negative mg/dL (NEG) Urine Ketones (Stick) Negative mg/dL (NEG) Urine Blood Negative (NEG) Urine Nitrite Negative (NEG) Urine Bilirubin Negative (NEG) Urine Urobilinogen Dipstick 0.2 mg/dL (0.2 mg/dL) Urine Leukocyte Esterase Negative (NEG) Urine RBC 0 /HPF (0-2) Urine WBC 0 /HPF (0-4) Urine Bacteria 0 /HPF (0-FEW) Laboratory Tests Test 06/07/18 19:13 06/07/18 19:15 06/07/18 19:33 06/07/18 21:30 Glucose (Fingerstick) 132 mg/dL (70-99) 118 mg/dL (70-99) White Blood Count 9.1 x10^3/uL (4.0-11.0) Red Blood Count 4.66 x10^6/uL (4.30-5.70) Hemoglobin 15.0 g/dL (13.0-17.5) Hematocrit 42.9 % (39.0-53.0) Mean Corpuscular Volume 92 fL (79-100) Mean Corpuscular Hemoglobin 32 pg (25-35) Mean Corpuscular Hemoglobin Concent 35 g/dL (31-37) Red Cell Distribution Width 12.9 % (11.5-14.5) Platelet Count 246 x10^3/uL (140-400) Neutrophils (%) (Auto) 51 % (31-73) Lymphocytes (%) (Auto) 38 % (24-48) Monocytes (%) (Auto) 8 % (0-9) Eosinophils (%) (Auto) 2 % (0-3) Basophils (%) (Auto) 1 % (0-3) Neutrophils # (Auto) 4.7 x10^3uL (1.8-7.7) Lymphocytes # (Auto) 3.5 x10^3/uL (1.0-4.8) Monocytes # (Auto) 0.8 x10^3/uL (0.0-1.1) Eosinophils # (Auto) 0.1 x10^3/uL (0.0-0.7) Basophils # (Auto) 0.1 x10^3/uL (0.0-0.2) Sodium Level 143 mmol/L (136-145) Potassium Level 3.8 mmol/L (3.5-5.1) Chloride Level 104 mmol/L (98-107) Carbon Dioxide Level 30 mmol/L (21-32) Anion Gap 9 (6-14) Blood Urea Nitrogen 12 mg/dL (8-26) Creatinine 1.1 mg/dL (0.7-1.3) Estimated GFR (Cockcroft-Gault) 67.4 BUN/Creatinine Ratio 11 (6-20) Glucose Level 134 mg/dL (70-99) Calcium Level 9.2 mg/dL (8.5-10.1) Total Bilirubin 0.4 mg/dL (0.2-1.0) Aspartate Amino Transf (AST/SGOT) 21 U/L (15-37) Alanine Aminotransferase (ALT/SGPT) 23 U/L (16-63) Alkaline Phosphatase 89 U/L (46-116) Troponin I Quantitative < 0.017 ng/mL (0.000-0.055) Total Protein 7.6 g/dL (6.4-8.2) Albumin 3.7 g/dL (3.4-5.0) Albumin/Globulin Ratio 0.9 (1.0-1.7) Ethyl Alcohol Level < 10 mg/dL (0-10) Prothrombin Time 12.7 SEC (11.7-14.0) Prothromb Time International Ratio 1.0 (0.8-1.1) Test 06/07/18 21:35 Urine Collection Type Unknown Urine Color Yellow Urine Clarity Clear Urine pH 7.0 Urine Specific [place] 1.015 Urine Protein Negative mg/dL (NEG-TRACE) Urine Glucose (UA) Negative mg/dL (NEG) Urine Ketones (Stick) Negative mg/dL (NEG) Urine Blood Negative (NEG) Urine Nitrite Negative (NEG) Urine Bilirubin Negative (NEG) Urine Urobilinogen Dipstick 0.2 mg/dL (0.2 mg/dL) Urine Leukocyte Esterase Negative (NEG) Urine RBC 0 /HPF (0-2) Urine WBC 0 /HPF (0-4) Urine Bacteria 0 /HPF (0-FEW) Images Images CT head - old left lacunar infarct of thalamus VTE Prophylaxis Ordered VTE Prophylaxis Devices: Yes VTE Pharmacological Prophylaxi: Yes Assessment/Plan Assessment/Plan A/P: Right sided weakness - with symptom duration this is a new CVA outside the TPA window. Reloaded on plavix + ASA. High intensity statin, Consult neuro. Telemetry. MRI in AM HTN - restart home meds. PRN labetalol can be added 10mg Q4 hours prn SBP > 160mmHg HLD - needs high intensity statin AURA - on CPAP, brought his home device UC - on sulfasalazine, should have PPI for GI protection with this and antiplatelet agents to reduce risk of GI bleeding Diabetes - on metformin, will add low sliding scale while in house as well FEN - general diet PPX - heparin and PPI FULL CODE Inpatient for new CVA, will consult neuro, etiology should be investigated, though off plavix may have been the trigger SERGIO OLIVER MD Jun 07, 2018 23:37
--- NOTE | 2018-06-08 03:20 | EKG ---
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
[2018-06-08 03:27] VITALS: BP 126/75
[2018-06-08] MEDS: HEPARIN for SUB-Q USE 5,000 UNIT/ML VIAL. SQ SCH ×3 (06:21→20:18)
[2018-06-08 07:46] VITALS: BP 146/79
[2018-06-08] MEDS: INSULIN LISPRO 300 UNITS/3 ML INSULN.PEN. SQ SCH ×3 (08:00→17:00)
[2018-06-08] MEDS: OMEGA-3 FATTY ACIDS/FISH OIL 1,000 MG CAPSULE. PO SCH ×2 (08:39→20:15)
[2018-06-08] MEDS: FLUTICASONE 50MCG/NASAL SPRAY 16GM BOTTLE. NS SCH (08:39)
[2018-06-08] MEDS: sulfaSALAzine 500 MG TABLET PO SCH ×2 (08:39→20:15)
[2018-06-08] MEDS: METOPROLOL SUCC 24HR ER 50 MG TAB.ER.24H. PO SCH (08:40)
[2018-06-08] MEDS: PANTOPRAZOLE 40 MG TABLET.DR. PO SCH (08:40)
[2018-06-08] MEDS: metFORMIN 500 MG TABLET PO SCH ×2 (08:40→18:25)
[2018-06-08] MEDS: SENNOSIDES/DOCUSATE 8.6/50MG TABLET. PO SCH ×2 (08:41→20:18)
[2018-06-08] MEDS: CLOPIDOGREL BISULFATE 75 MG TABLET PO SCH (08:41)
--- NOTE | 2018-06-08 09:24 | PDOC ---
PROGRESS NOTES History of Present Illness History of Present Illness Assessment/Plan Assessment/Plan A/P: Right sided weakness - with symptom duration this is a new CVA outside the TPA window. Reloaded on plavix + ASA. High intensity statin, Consult neuro. Telemetry. MRI noted to be stat today HTN - restart home meds. 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, encouraged to await therapy, rehab FEN - general diet PPX - heparin and PPI FULL CODE Inpatient for new CVA, will consult neuro, etiology should be investigated, though off plavix may have been the trigger PT/OT/ ST, consult DR Chairez Vitals Vitals Vital Signs Date Time Temp Pulse Resp B/P (MAP) Pulse Ox O2 Delivery O2 Flow Rate FiO2 06/08/18 08:40 67 146/79 06/08/18 07:46 97.5 18 96 Room Air 97.5 Physical Exam General: Alert, Oriented X3, Cooperative, No acute distress, Other (mildly discouraged) Heart: Regular rate, Normal S1, Normal S2, No murmurs Lungs: Clear Abdomen: Normal bowel sounds, Soft, No tenderness, No hepatosplenomegaly, No masses Extremities: No clubbing, No cyanosis, No edema, Normal pulses, No tenderness/ swelling Skin: No rashes, No breakdown, No significant lesion Labs LABS INDICATION: CVA/stroke. Evaluate extracranial circulation. TECHNIQUE: CT angiogram of the head and neck with 75 mL of Omnipaque 300 with multiplanar MIP reformats. 3-D volume rendered postprocessing was performed on a dedicated workstation. COMPARISON: None FINDINGS: The A1, A2 and A3 segments of the bilateral LO are patent. The bilateral M1, M2 and M3 segments of the MCA are patent. Basilar artery is patent. The P1, P2 and P3 segments of the bilateral COLLEGE ATHLETE are patent. Bilateral posterior communicating arteries are not visualized likely hypoplastic. Bilateral superior cerebellar arteries are visualized and are patent. Tortuous basilar artery noted. Thin caliber V4 segment of the right vertebral artery noted. Left anterior inferior cerebellar is visualized and is patent. Right anterior inferior cerebellar artery is not visualized likely hypoplastic. Right posterior inferior cerebellar artery is visualized and is patent. Left posterior inferior cerebellar artery is not visualized. Hypoplastic. The left vertebral artery is dominant. Vertebral arteries are patent. The bilateral cavernous and petrous segments of the ICA are patent. The bilateral extracranial ICA are patent. Bilateral COLLEGE ATHLETE are patent. Bilateral common carotid arteries are patent. Conventional arch anatomy. Tortuous bilateral proximal carotid arteries noted. Bilateral subclavian arteries are patent. Superior mediastinum is within normal limits. The major dural venous sinuses are patent. No enhancing brain lesion. Bilateral ophthalmic arteries are patent. Orbits within normal limits. The nasopharynx, oropharynx and hypopharynx are within normal limits. Motion artifact noted in the lungs limiting optimal evaluation. No pneumothorax. Nonenlarged cervical lymphadenopathy. The submandibular glands, parotid glands and thyroid are within normal limits. No suspicious bony lesion. Visualized paranasal sinuses and mastoid air cells are clear. Multilevel degenerative disc disease in the cervical spine. IMPRESSION: The major intracranial and extracranial arteries are patent. Laboratory Tests Test 06/07/18 19:13 06/07/18 19:15 06/07/18 19:33 06/07/18 21:30 Glucose (Fingerstick) 132 mg/dL (70-99) 118 mg/dL (70-99) White Blood Count 9.1 x10^3/uL (4.0-11.0) Red Blood Count 4.66 x10^6/uL (4.30-5.70) Hemoglobin 15.0 g/dL (13.0-17.5) Hematocrit 42.9 % (39.0-53.0) Mean Corpuscular Volume 92 fL (79-100) Mean Corpuscular Hemoglobin 32 pg (25-35) Mean Corpuscular Hemoglobin Concent 35 g/dL (31-37) Red Cell Distribution Width 12.9 % (11.5-14.5) Platelet Count 246 x10^3/uL (140-400) Neutrophils (%) (Auto) 51 % (31-73) Lymphocytes (%) (Auto) 38 % (24-48) Monocytes (%) (Auto) 8 % (0-9) Eosinophils (%) (Auto) 2 % (0-3) Basophils (%) (Auto) 1 % (0-3) Neutrophils # (Auto) 4.7 x10^3uL (1.8-7.7) Lymphocytes # (Auto) 3.5 x10^3/uL (1.0-4.8) Monocytes # (Auto) 0.8 x10^3/uL (0.0-1.1) Eosinophils # (Auto) 0.1 x10^3/uL (0.0-0.7) Basophils # (Auto) 0.1 x10^3/uL (0.0-0.2) Sodium Level 143 mmol/L (136-145) Potassium Level 3.8 mmol/L (3.5-5.1) Chloride Level 104 mmol/L (98-107) Carbon Dioxide Level 30 mmol/L (21-32) Anion Gap 9 (6-14) Blood Urea Nitrogen 12 mg/dL (8-26) Creatinine 1.1 mg/dL (0.7-1.3) Estimated GFR (Cockcroft-Gault) 67.4 BUN/Creatinine Ratio 11 (6-20) Glucose Level 134 mg/dL (70-99) Calcium Level 9.2 mg/dL (8.5-10.1) Total Bilirubin 0.4 mg/dL (0.2-1.0) Aspartate Amino Transf (AST/SGOT) 21 U/L (15-37) Alanine Aminotransferase (ALT/SGPT) 23 U/L (16-63) Alkaline Phosphatase 89 U/L (46-116) Troponin I Quantitative < 0.017 ng/mL (0.000-0.055) Total Protein 7.6 g/dL (6.4-8.2) Albumin 3.7 g/dL (3.4-5.0) Albumin/Globulin Ratio 0.9 (1.0-1.7) Ethyl Alcohol Level < 10 mg/dL (0-10) Prothrombin Time 12.7 SEC (11.7-14.0) Prothromb Time International Ratio 1.0 (0.8-1.1) Test 06/07/18 21:35 06/08/18 07:33 Urine Collection Type Unknown Urine Color Yellow Urine Clarity Clear Urine pH 7.0 Urine Specific [place] 1.015 Urine Protein Negative mg/dL (NEG-TRACE) Urine Glucose (UA) Negative mg/dL (NEG) Urine Ketones (Stick) Negative mg/dL (NEG) Urine Blood Negative (NEG) Urine Nitrite Negative (NEG) Urine Bilirubin Negative (NEG) Urine Urobilinogen Dipstick 0.2 mg/dL (0.2 mg/dL) Urine Leukocyte Esterase Negative (NEG) Urine RBC 0 /HPF (0-2) Urine WBC 0 /HPF (0-4) Urine Bacteria 0 /HPF (0-FEW) Glucose (Fingerstick) 151 mg/dL (70-99) Comment Review of Relevant I have reviewed the following items manasa (where applicable) has been applied. Labs Laboratory Tests Test 06/07/18 19:13 06/07/18 19:15 06/07/18 19:33 06/07/18 21:30 Glucose (Fingerstick) 132 mg/dL (70-99) 118 mg/dL (70-99) White Blood Count 9.1 x10^3/uL (4.0-11.0) Red Blood Count 4.66 x10^6/uL (4.30-5.70) Hemoglobin 15.0 g/dL (13.0-17.5) Hematocrit 42.9 % (39.0-53.0) Mean Corpuscular Volume 92 fL (79-100) Mean Corpuscular Hemoglobin 32 pg (25-35) Mean Corpuscular Hemoglobin Concent 35 g/dL (31-37) Red Cell Distribution Width 12.9 % (11.5-14.5) Platelet Count 246 x10^3/uL (140-400) Neutrophils (%) (Auto) 51 % (31-73) Lymphocytes (%) (Auto) 38 % (24-48) Monocytes (%) (Auto) 8 % (0-9) Eosinophils (%) (Auto) 2 % (0-3) Basophils (%) (Auto) 1 % (0-3) Neutrophils # (Auto) 4.7 x10^3uL (1.8-7.7) Lymphocytes # (Auto) 3.5 x10^3/uL (1.0-4.8) Monocytes # (Auto) 0.8 x10^3/uL (0.0-1.1) Eosinophils # (Auto) 0.1 x10^3/uL (0.0-0.7) Basophils # (Auto) 0.1 x10^3/uL (0.0-0.2) Sodium Level 143 mmol/L (136-145) Potassium Level 3.8 mmol/L (3.5-5.1) Chloride Level 104 mmol/L (98-107) Carbon Dioxide Level 30 mmol/L (21-32) Anion Gap 9 (6-14) Blood Urea Nitrogen 12 mg/dL (8-26) Creatinine 1.1 mg/dL (0.7-1.3) Estimated GFR (Cockcroft-Gault) 67.4 BUN/Creatinine Ratio 11 (6-20) Glucose Level 134 mg/dL (70-99) Calcium Level 9.2 mg/dL (8.5-10.1) Total Bilirubin 0.4 mg/dL (0.2-1.0) Aspartate Amino Transf (AST/SGOT) 21 U/L (15-37) Alanine Aminotransferase (ALT/SGPT) 23 U/L (16-63) Alkaline Phosphatase 89 U/L (46-116) Troponin I Quantitative < 0.017 ng/mL (0.000-0.055) Total Protein 7.6 g/dL (6.4-8.2) Albumin 3.7 g/dL (3.4-5.0) Albumin/Globulin Ratio 0.9 (1.0-1.7) Ethyl Alcohol Level < 10 mg/dL (0-10) Prothrombin Time 12.7 SEC (11.7-14.0) Prothromb Time International Ratio 1.0 (0.8-1.1) Test 06/07/18 21:35 06/08/18 07:33 Urine Collection Type Unknown Urine Color Yellow Urine Clarity Clear Urine pH 7.0 Urine Specific [place] 1.015 Urine Protein Negative mg/dL (NEG-TRACE) Urine Glucose (UA) Negative mg/dL (NEG) Urine Ketones (Stick) Negative mg/dL (NEG) Urine Blood Negative (NEG) Urine Nitrite Negative (NEG) Urine Bilirubin Negative (NEG) Urine Urobilinogen Dipstick 0.2 mg/dL (0.2 mg/dL) Urine Leukocyte Esterase Negative (NEG) Urine RBC 0 /HPF (0-2) Urine WBC 0 /HPF (0-4) Urine Bacteria 0 /HPF (0-FEW) Glucose (Fingerstick) 151 mg/dL (70-99) Laboratory Tests Test 06/07/18 19:13 06/07/18 19:15 06/07/18 19:33 06/07/18 21:30 Glucose (Fingerstick) 132 mg/dL (70-99) 118 mg/dL (70-99) White Blood Count 9.1 x10^3/uL (4.0-11.0) Red Blood Count 4.66 x10^6/uL (4.30-5.70) Hemoglobin 15.0 g/dL (13.0-17.5) Hematocrit 42.9 % (39.0-53.0) Mean Corpuscular Volume 92 fL (79-100) Mean Corpuscular Hemoglobin 32 pg (25-35) Mean Corpuscular Hemoglobin Concent 35 g/dL (31-37) Red Cell Distribution Width 12.9 % (11.5-14.5) Platelet Count 246 x10^3/uL (140-400) Neutrophils (%) (Auto) 51 % (31-73) Lymphocytes (%) (Auto) 38 % (24-48) Monocytes (%) (Auto) 8 % (0-9) Eosinophils (%) (Auto) 2 % (0-3) Basophils (%) (Auto) 1 % (0-3) Neutrophils # (Auto) 4.7 x10^3uL (1.8-7.7) Lymphocytes # (Auto) 3.5 x10^3/uL (1.0-4.8) Monocytes # (Auto) 0.8 x10^3/uL (0.0-1.1) Eosinophils # (Auto) 0.1 x10^3/uL (0.0-0.7) Basophils # (Auto) 0.1 x10^3/uL (0.0-0.2) Sodium Level 143 mmol/L (136-145) Potassium Level 3.8 mmol/L (3.5-5.1) Chloride Level 104 mmol/L (98-107) Carbon Dioxide Level 30 mmol/L (21-32) Anion Gap 9 (6-14) Blood Urea Nitrogen 12 mg/dL (8-26) Creatinine 1.1 mg/dL (0.7-1.3) Estimated GFR (Cockcroft-Gault) 67.4 BUN/Creatinine Ratio 11 (6-20) Glucose Level 134 mg/dL (70-99) Calcium Level 9.2 mg/dL (8.5-10.1) Total Bilirubin 0.4 mg/dL (0.2-1.0) Aspartate Amino Transf (AST/SGOT) 21 U/L (15-37) Alanine Aminotransferase (ALT/SGPT) 23 U/L (16-63) Alkaline Phosphatase 89 U/L (46-116) Troponin I Quantitative < 0.017 ng/mL (0.000-0.055) Total Protein 7.6 g/dL (6.4-8.2) Albumin 3.7 g/dL (3.4-5.0) Albumin/Globulin Ratio 0.9 (1.0-1.7) Ethyl Alcohol Level < 10 mg/dL (0-10) Prothrombin Time 12.7 SEC (11.7-14.0) Prothromb Time International Ratio 1.0 (0.8-1.1) Test 06/07/18 21:35 06/08/18 07:33 Urine Collection Type Unknown Urine Color Yellow Urine Clarity Clear Urine pH 7.0 Urine Specific [place] 1.015 Urine Protein Negative mg/dL (NEG-TRACE) Urine Glucose (UA) Negative mg/dL (NEG) Urine Ketones (Stick) Negative mg/dL (NEG) Urine Blood Negative (NEG) Urine Nitrite Negative (NEG) Urine Bilirubin Negative (NEG) Urine Urobilinogen Dipstick 0.2 mg/dL (0.2 mg/dL) Urine Leukocyte Esterase Negative (NEG) Urine RBC 0 /HPF (0-2) Urine WBC 0 /HPF (0-4) Urine Bacteria 0 /HPF (0-FEW) Glucose (Fingerstick) 151 mg/dL (70-99) Medications Current Medications Clopidogrel Bisulfate (Plavix) 300 mg 1X ONCE PO Last administered on at 20:12; Start 06/07/18 at 20:00; Stop 06/07/18 at 20:01; Status DC Aspirin (Children'S Aspirin) 81 mg 1X ONCE PO Last administered on 06/07/18at 20:11; Start 06/07/18 at 20:00; Stop 06/07/18 at 20:01; Status DC Losartan Potassium (Cozaar) 50 mg QHS PO Last administered on 06/07/18 23:04; Start 06/07/18 at 22:00 Metoprolol Succinate (Toprol Xl) 100 mg DAILY PO Last administered on 08:40; Start 06/08/18 at 09:00 Fish Oil (Fish Oil) 1,000 mg BID PO Last administered on 06/08/18 08:39; Start 06/08/18 at 09:00 Atorvastatin Calcium (Lipitor) 80 mg HS PO Last administered on 06/07/18 23:04 ; Start 06/07/18 at 22:00 Fluticasone Propionate (Flonase) 2 spray DAILY NS Last administered on 08:39; Start 06/08/18 at 09:00 Metformin HCl (Glucophage) 500 mg BIDWMEALS PO Last administered on 06/08/18 08:40; Start 06/08/18 at 08:00 Pantoprazole Sodium (Protonix) 40 mg DAILYAC PO Last administered on 06/08/18 08:40; Start 06/08/18 at 07:30 Sulfasalazine (Azulfidine) 500 mg BID PO Last administered on 06/08/18 08:39; Start 06/08/18 at 09:00 Insulin Human Lispro (HumaLOG) 0-5 UNITS TIDWMEALS SQ ; Start 06/08/18 at 08:00 Dextrose (Dextrose 50%-Water Syringe) 12.5 gm PRN Q15MIN PRN IV SEE COMMENTS; Start 06/07/18 at 22:00 Clopidogrel Bisulfate (Plavix) 75 mg DAILYWBKFT PO Last administered on at 08:41; Start 06/08/18 at 08:00 Ondansetron HCl (Zofran) 4 mg PRN Q6HRS PRN IV NAUSEA/VOMITING; Start 06/07/18 at 23:30 Acetaminophen (Tylenol) 650 mg PRN Q6HRS PRN PO Headaches, Temp > 101.5F; Start 06/07/18 at 23:30 Senna/Docusate Sodium (Senna Plus) 1 tab BID PO Last administered on 06/08/18at 08:41; Start 06/08/18 at 09:00 Lactulose (Lactulose) 20 gm PRN Q12HR PRN PO CONSTIPATION; Start 06/07/18 at 23 :30 Heparin Sodium (Porcine) (Heparin Sodium) 5,000 unit Q8HRS SQ Last administered on 06/08/18at 06:21; Start 06/08/18 at 06:00 Active Scripts Active Reported Aggrenox 25 Mg-200 Mg Capsule (Aspirin/Dipyridamole) 1 Each Cpmp.12hr 1 Each PO DAILY Atorvastatin Calcium 80 Mg Tablet 80 Mg PO HS Metformin Hcl 500 Mg Tablet 500 Mg PO BIDWMEALS Sulfasalazine 500 Mg Tablet 500 Mg PO BID Omeprazole 20 Mg Tablet.dr 1 Tab PO DAILY Metoprolol Succinate 50 Mg Tab.er.24h 100 Mg PO Losartan Potassium 50 Mg Tablet 50 Mg PO DAILY Folic Acid 0.8 Mg Capsule 0.8 Mg PO Flonase Allergy Relief (Fluticasone Propionate) 9.9 Ml [place].susp 2 Sprays NS DAILY Fish Oil 1,000 Mg Capsule ([place]-3 Fatty Acids/Fish Oil) 1 Each Capsule 1 Each PO BID Daily Meg (Multivitamin) 1 Each Tablet 1 Each PO Aspirin 81 Mg Tab.chew 1 Tab PO DAILY Zyrtec (Cetirizine Hcl) 10 Mg Capsule 10 Mg PO Vitals/I & O Vital Sign - Last 24 Hours 06/07/18 06/07/18 06/07/18 06/07/18 19:09 19:15 19:30 19:45 Temp 97.8 97.8 Pulse 73 72 66 66 Resp 16 16 16 16 B/P (MAP) 176/87 (116) Pulse Ox 97 97 97 97 O2 Delivery Room Air 06/07/18 06/07/18 06/07/18 06/07/18 20:00 20:15 20:45 21:39 Temp 97.9 97.9 Pulse 66 66 59 Resp 16 16 18 B/P (MAP) 139/73 (95) Pulse Ox 97 97 96 O2 Delivery Room Air Room Air 06/07/18 06/07/18 06/08/18 06/08/18 23:04 23:10 03:27 07:46 Temp 97.9 97.7 97.5 97.9 97.7 97.5 Pulse 59 63 55 67 Resp 18 18 18 B/P (MAP) 139/73 130/69 (89) 126/75 (92) 146/79 (101) Pulse Ox 96 97 96 O2 Delivery Room Air Room Air Room Air 06/08/18 08:40 Pulse 67 B/P (MAP) 146/79 Intake and Output 06/07/18 06/07/18 06/08/18 15:00 23:00 07:00 Intake Total 410 ml Output Total 950 ml Balance -540 ml ANTONIO QUINTANILLA MD Jun 08, 2018 09:24
[2018-06-08 10:41] VITALS: BP 128/74
--- NOTE | 2018-06-08 12:16 | RAD ---
MRI of the brain without contrast dated 06/08/2018. Comparison made to 09/16/2017. Clinical indication: Worsening right-sided weakness. Possible CVA. TECHNIQUE: Routine multiplanar multisequence MR imaging performed. No contrast administered. FINDINGS: Ventricles and sulci are mildly prominent for age. No midline shift or mass effect. There is mild patchy hyperintense FLAIR signal abnormality in the deep/subcortical periventricular white matter and left thalamus with evidence of prior left ophthalmic lacunar infarct. No hemorrhage or extra-axial collection. Posterior fossa and brainstem unremarkable. No evidence of acute diffusion restriction. The major intracranial flow-voids are present. Postcontrast imaging was not performed. Minimal mucosal thickening of the ethmoid air cells. The visualized paranasal sinuses and mastoid air cells are otherwise clear. No apparent calvarial abnormality. IMPRESSION: 1. No evidence of acute intracranial hemorrhage, mass or acute infarct. 2. Mild chronic small vessel ischemic changes with remote lacunar infarct of the left thalamus. 3. Mild atrophy for age. Electronically signed by: Guilherme Shipman MD (06/08/2018 12:13 PM) [facility] [place]
[2018-06-08 14:45] VITALS: BP 135/73
--- NOTE | 2018-06-08 16:31 | PDOC2 ---
NEUROLOGY CONSULT Date of Admission Date of Admission DATE: 06/07/18 TIME: 16:30 Full Report Dictated Patient is a pleasant 63-year-old man who previously suffered a left thalamic stroke in September 2017. He received intravenous TPA. He has residual symptoms with coordination change and sensory loss on the right side. Since the stroke he intermittently has exacerbations of numbness and tingling on the right. Normally they are brief but this one lasted an extended period of time. He presented to the emergency room for evaluation. Of note is that he had switched Plavix to Aggrenox in the last month. MRI of the brain was performed this admission and did not reveal evidence for an acute stroke. We are switching him off of Aggrenox and back to Plavix. Blood pressure will need to be monitored. He 's been on long-term atorvastatin to manage hyperlipidemia. He will likely be dismissed to home from a neurologic perspective if medically stable. He underwent CT angiogram in September 2017 which was not revealing. He is also had echocardiogram in September 2017 which did not reveal a cardioembolic source. Current Medications Current Medications Current Medications Clopidogrel Bisulfate (Plavix) 300 mg 1X ONCE PO Last administered on 20:12; Start 06/07/18 at 20:00; Stop 06/07/18 at 20:01; Status DC Aspirin (Children'S Aspirin) 81 mg 1X ONCE PO Last administered on 06/07/18 20:11; Start 06/07/18 at 20:00; Stop 06/07/18 at 20:01; Status DC Losartan Potassium (Cozaar) 50 mg QHS PO Last administered on 06/07/18 23:04; Start 06/07/18 at 22:00 Metoprolol Succinate (Toprol Xl) 100 mg DAILY PO Last administered on 08:40; Start 06/08/18 at 09:00 Fish Oil (Fish Oil) 1,000 mg BID PO Last administered on 06/08/18 08:39; Start 06/08/18 at 09:00 Atorvastatin Calcium (Lipitor) 80 mg HS PO Last administered on 06/07/18 23:04 ; Start 06/07/18 at 22:00 Fluticasone Propionate (Flonase) 2 spray DAILY NS Last administered on 08:39; Start 06/08/18 at 09:00 Metformin HCl (Glucophage) 500 mg BIDWMEALS PO Last administered on 06/08/18at 08:40; Start 06/08/18 at 08:00 Pantoprazole Sodium (Protonix) 40 mg DAILYAC PO Last administered on 06/08/18at 08:40; Start 06/08/18 at 07:30 Sulfasalazine (Azulfidine) 500 mg BID PO Last administered on 06/08/18at 08:39; Start 06/08/18 at 09:00 Insulin Human Lispro (HumaLOG) 0-5 UNITS TIDWMEALS SQ ; Start 06/08/18 at 08:00 Dextrose (Dextrose 50%-Water Syringe) 12.5 gm PRN Q15MIN PRN IV SEE COMMENTS; Start 06/07/18 at 22:00 Clopidogrel Bisulfate (Plavix) 75 mg DAILYWBKFT PO Last administered on at 08:41; Start 06/08/18 at 08:00 Ondansetron HCl (Zofran) 4 mg PRN Q6HRS PRN IV NAUSEA/VOMITING; Start 06/07/18 at 23:30 Acetaminophen (Tylenol) 650 mg PRN Q6HRS PRN PO Headaches, Temp > 101.5F; Start 06/07/18 at 23:30 Senna/Docusate Sodium (Senna Plus) 1 tab BID PO Last administered on 06/08/18at 08:41; Start 06/08/18 at 09:00 Lactulose (Lactulose) 20 gm PRN Q12HR PRN PO CONSTIPATION; Start 06/07/18 at 23 :30 Heparin Sodium (Porcine) (Heparin Sodium) 5,000 unit Q8HRS SQ Last administered on 06/08/18at 06:21; Start 06/08/18 at 06:00 Active Scripts Active Reported Aggrenox 25 Mg-200 Mg Capsule (Aspirin/Dipyridamole) 1 Each Cpmp.12hr 1 Each PO DAILY Atorvastatin Calcium 80 Mg Tablet 80 Mg PO HS Metformin Hcl 500 Mg Tablet 500 Mg PO BIDWMEALS Sulfasalazine 500 Mg Tablet 500 Mg PO BID Omeprazole 20 Mg Tablet.dr 1 Tab PO DAILY Metoprolol Succinate 50 Mg Tab.er.24h 100 Mg PO Losartan Potassium 50 Mg Tablet 50 Mg PO DAILY Folic Acid 0.8 Mg Capsule 0.8 Mg PO Flonase Allergy Relief (Fluticasone Propionate) 9.9 Ml [place].susp 2 Sprays NS DAILY Fish Oil 1,000 Mg Capsule ([place]-3 Fatty Acids/Fish Oil) 1 Each Capsule 1 Each PO BID Daily Meg (Multivitamin) 1 Each Tablet 1 Each PO Aspirin 81 Mg Tab.chew 1 Tab PO DAILY Zyrtec (Cetirizine Hcl) 10 Mg Capsule 10 Mg PO Allergies Allergies: Coded Allergies: No Known Drug Allergies (Unverified , 07/30/17) Vitals VITALS Vital Signs Date Time Temp Pulse Resp B/P (MAP) Pulse Ox O2 Delivery O2 Flow Rate FiO2 06/08/18 14:45 97.7 67 18 135/73 (93) 96 Room Air 97.7 Labs Labs Laboratory Tests Test 06/07/18 19:13 06/07/18 19:15 06/07/18 19:33 06/07/18 21:30 Glucose (Fingerstick) 132 mg/dL (70-99) 118 mg/dL (70-99) White Blood Count 9.1 x10^3/uL (4.0-11.0) Red Blood Count 4.66 x10^6/uL (4.30-5.70) Hemoglobin 15.0 g/dL (13.0-17.5) Hematocrit 42.9 % (39.0-53.0) Mean Corpuscular Volume 92 fL (79-100) Mean Corpuscular Hemoglobin 32 pg (25-35) Mean Corpuscular Hemoglobin Concent 35 g/dL (31-37) Red Cell Distribution Width 12.9 % (11.5-14.5) Platelet Count 246 x10^3/uL (140-400) Neutrophils (%) (Auto) 51 % (31-73) Lymphocytes (%) (Auto) 38 % (24-48) Monocytes (%) (Auto) 8 % (0-9) Eosinophils (%) (Auto) 2 % (0-3) Basophils (%) (Auto) 1 % (0-3) Neutrophils # (Auto) 4.7 x10^3uL (1.8-7.7) Lymphocytes # (Auto) 3.5 x10^3/uL (1.0-4.8) Monocytes # (Auto) 0.8 x10^3/uL (0.0-1.1) Eosinophils # (Auto) 0.1 x10^3/uL (0.0-0.7) Basophils # (Auto) 0.1 x10^3/uL (0.0-0.2) Sodium Level 143 mmol/L (136-145) Potassium Level 3.8 mmol/L (3.5-5.1) Chloride Level 104 mmol/L (98-107) Carbon Dioxide Level 30 mmol/L (21-32) Anion Gap 9 (6-14) Blood Urea Nitrogen 12 mg/dL (8-26) Creatinine 1.1 mg/dL (0.7-1.3) Estimated GFR (Cockcroft-Gault) 67.4 BUN/Creatinine Ratio 11 (6-20) Glucose Level 134 mg/dL (70-99) Calcium Level 9.2 mg/dL (8.5-10.1) Total Bilirubin 0.4 mg/dL (0.2-1.0) Aspartate Amino Transf (AST/SGOT) 21 U/L (15-37) Alanine Aminotransferase (ALT/SGPT) 23 U/L (16-63) Alkaline Phosphatase 89 U/L (46-116) Troponin I Quantitative < 0.017 ng/mL (0.000-0.055) Total Protein 7.6 g/dL (6.4-8.2) Albumin 3.7 g/dL (3.4-5.0) Albumin/Globulin Ratio 0.9 (1.0-1.7) Ethyl Alcohol Level < 10 mg/dL (0-10) Prothrombin Time 12.7 SEC (11.7-14.0) Prothromb Time International Ratio 1.0 (0.8-1.1) Test 06/07/18 21:35 06/08/18 07:33 06/08/18 11:07 06/08/18 16:17 Urine Collection Type Unknown Urine Color Yellow Urine Clarity Clear Urine pH 7.0 Urine Specific [place] 1.015 Urine Protein Negative mg/dL (NEG-TRACE) Urine Glucose (UA) Negative mg/dL (NEG) Urine Ketones (Stick) Negative mg/dL (NEG) Urine Blood Negative (NEG) Urine Nitrite Negative (NEG) Urine Bilirubin Negative (NEG) Urine Urobilinogen Dipstick 0.2 mg/dL (0.2 mg/dL) Urine Leukocyte Esterase Negative (NEG) Urine RBC 0 /HPF (0-2) Urine WBC 0 /HPF (0-4) Urine Bacteria 0 /HPF (0-FEW) Glucose (Fingerstick) 151 mg/dL (70-99) 135 mg/dL (70-99) 92 mg/dL (70-99) Laboratory Tests Test 06/07/18 19:13 06/07/18 19:15 06/07/18 19:33 06/07/18 21:30 Glucose (Fingerstick) 132 mg/dL (70-99) 118 mg/dL (70-99) White Blood Count 9.1 x10^3/uL (4.0-11.0) Red Blood Count 4.66 x10^6/uL (4.30-5.70) Hemoglobin 15.0 g/dL (13.0-17.5) Hematocrit 42.9 % (39.0-53.0) Mean Corpuscular Volume 92 fL (79-100) Mean Corpuscular Hemoglobin 32 pg (25-35) Mean Corpuscular Hemoglobin Concent 35 g/dL (31-37) Red Cell Distribution Width 12.9 % (11.5-14.5) Platelet Count 246 x10^3/uL (140-400) Neutrophils (%) (Auto) 51 % (31-73) Lymphocytes (%) (Auto) 38 % (24-48) Monocytes (%) (Auto) 8 % (0-9) Eosinophils (%) (Auto) 2 % (0-3) Basophils (%) (Auto) 1 % (0-3) Neutrophils # (Auto) 4.7 x10^3uL (1.8-7.7) Lymphocytes # (Auto) 3.5 x10^3/uL (1.0-4.8) Monocytes # (Auto) 0.8 x10^3/uL (0.0-1.1) Eosinophils # (Auto) 0.1 x10^3/uL (0.0-0.7) Basophils # (Auto) 0.1 x10^3/uL (0.0-0.2) Sodium Level 143 mmol/L (136-145) Potassium Level 3.8 mmol/L (3.5-5.1) Chloride Level 104 mmol/L (98-107) Carbon Dioxide Level 30 mmol/L (21-32) Anion Gap 9 (6-14) Blood Urea Nitrogen 12 mg/dL (8-26) Creatinine 1.1 mg/dL (0.7-1.3) Estimated GFR (Cockcroft-Gault) 67.4 BUN/Creatinine Ratio 11 (6-20) Glucose Level 134 mg/dL (70-99) Calcium Level 9.2 mg/dL (8.5-10.1) Total Bilirubin 0.4 mg/dL (0.2-1.0) Aspartate Amino Transf (AST/SGOT) 21 U/L (15-37) Alanine Aminotransferase (ALT/SGPT) 23 U/L (16-63) Alkaline Phosphatase 89 U/L (46-116) Troponin I Quantitative < 0.017 ng/mL (0.000-0.055) Total Protein 7.6 g/dL (6.4-8.2) Albumin 3.7 g/dL (3.4-5.0) Albumin/Globulin Ratio 0.9 (1.0-1.7) Ethyl Alcohol Level < 10 mg/dL (0-10) Prothrombin Time 12.7 SEC (11.7-14.0) Prothromb Time International Ratio 1.0 (0.8-1.1) Test 06/07/18 21:35 06/08/18 07:33 06/08/18 11:07 06/08/18 16:17 Urine Collection Type Unknown Urine Color Yellow Urine Clarity Clear Urine pH 7.0 Urine Specific [place] 1.015 Urine Protein Negative mg/dL (NEG-TRACE) Urine Glucose (UA) Negative mg/dL (NEG) Urine Ketones (Stick) Negative mg/dL (NEG) Urine Blood Negative (NEG) Urine Nitrite Negative (NEG) Urine Bilirubin Negative (NEG) Urine Urobilinogen Dipstick 0.2 mg/dL (0.2 mg/dL) Urine Leukocyte Esterase Negative (NEG) Urine RBC 0 /HPF (0-2) Urine WBC 0 /HPF (0-4) Urine Bacteria 0 /HPF (0-FEW) Glucose (Fingerstick) 151 mg/dL (70-99) 135 mg/dL (70-99) 92 mg/dL (70-99) ANASTASIYA POST MD Jun 08, 2018 16:31
[2018-06-08 19:45] VITALS: BP 117/67
[2018-06-08] MEDS: LOSARTAN POTASSIUM 50 MG TABLET. PO SCH (20:16)
[2018-06-08] MEDS: ATORVASTATIN CALCIUM 40 MG TABLET. PO SCH (20:16)
--- NOTE | 2018-06-08 22:13 | CONS ---
DATE OF CONSULTATION: 06/08/2018 REFERRING PHYSICIAN: Sergio Riojas MD REASON FOR CONSULTATION: Evaluate for stroke. HISTORY OF PRESENT ILLNESS: The prashant is a very pleasant 63-year-old man admitted previously to [facility] for right-sided numbness. He was found to have left thalamic stroke. He was evaluated by Dr. Domingo. On this occasion, he had noticed some worsening tingling and numbness on the right side. Ever since he had the stroke in 09/2017, symptoms have come and gone with tingling. The only difference was the tingling did not go away on this occasion. He presented to the emergency room. He underwent an MRI of brain without contrast today to evaluate. Fortunately, this was a normal study. With the previous stroke, he did receive intravenous TPA. In the emergency room, the NIH was 2, but it is not clear if this was new or old findings. The CT scan was negative in the emergency room. He has undergone carotid Dopplers in 09/2017, which did not reveal critical stenosis. He feels about the same with persistent tingling on the right side, but no new symptoms other than this. He periodically has headaches, but does not currently have a headache. He has not noted any change in thinking. PAST MEDICAL HISTORY: 1. Stroke, 09/2011. 2. History of transient ischemic attack. 3. Hypertension. 4. Hyperlipidemia. 5. Gastrointestinal hemorrhage. 6. Inflammatory bowel disease. 7. Osteoarthritis. 8. Diabetes. ALLERGIES: No known allergies to drugs. MEDICINES PRIOR TO ADMISSION: Aspirin 81 mg, Aggrenox, atorvastatin 80 mg, cetirizine 10 mg, Flonase nasal, folic acid 0.8 mg, losartan 50 mg, metformin 500 mg twice per day, metoprolol 50 mg extended release, 2 tablets, multivitamin, omega-3 fatty acids, omeprazole 20 mg, and sulfasalazine 500 mg twice per day. FAMILY HISTORY: Rheumatic diseases in the family. SOCIAL HISTORY: He is . He does not smoke tobacco and is a lifelong nonsmoker. He has one alcoholic beverage a day. 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 REVIEW OF SYSTEMS: He does not have a headache. There has been no change in vision, speech, cognition or swallow. He has had no loss of hearing. There has been no change in comprehension. He has been able to eat and swallow without choking. He has not had shortness of breath, cough or cold. There is no chest or abdominal pain. He does not have bone or joint pain. There has been no recent fever or rash. Does not have any gastrointestinal complaints. He does not have genitourinary complaint. He does not complain of excessive bruising or bleeding. He does have swelling of his right leg. Normally, he wears compression hose, but they were all dirty and in the laundry. He does not have any psychiatric concerns. PHYSICAL EXAMINATION: VITAL SIGNS: The blood pressure was 135/73, pulse 67, respirations 18, temperature 97.7 degrees Fahrenheit. Oximetry was 96% on room air. His weight was 273.4 pounds, height 70 inches with a calculated body mass index of 39.2. GENERAL: He was alert, awake and cooperative. Speech was fluent and clear. He did have good fund of recent and remote knowledge. Attention and concentration was intact. He appeared well groomed and well nourished. He was fully oriented. NEUROLOGIC: Examination of the cranial nerves revealed visual damian are full to confrontation. Extraocular movements were intact. The eyes were conjugate. Pursuit movements were smooth and saccadic eye movements were without dysmetria. Pupils are 3 mm and reactive. There was no afferent pupillary defect. Funduscopic exam did not reveal papilledema, exudate or hemorrhage. Facial sensation was intact. The muscles of mastication and facial expression were powerful symmetrically. Hearing was intact to finger rub. The palate arched symmetrically and the tongue was midline with full range of motion. Sternocleidomastoid and trapezius were powerful. Muscle bulk and tone was normal. There was no arm or leg drift. The power was full and symmetric in the upper and lower extremities except for some weakness with elbow flexion on the right. Reflexes were 2/4 and symmetric in the upper extremities, 1/4 at the knees, and absent at the ankles. The toes are downgoing. Coordination testing with [id number], [id number], fine motor and rapid alternating movements fairly well performed, but not as well with the right hand. Sensory exam was intact to pain, light touch, proprioception, graphesthesia, cold thermal and vibration except for some sensory shading in the right hand to primary modalities and some shading bilaterally to the ankles to vibration. There was overall shading in the right hand to sharp, but still perception was present, just shaded. There was no extinction to double simultaneous stimulation. He is able to stand and bear weight. Gait was normal base and was steady. He can walk on heels or toes. He could not tandem walk. The Romberg stance was negative. Auscultation of the carotid arteries did not reveal a bruit. Heart rhythm was regular without a murmur. Peripheral pulses were symmetric in the hands and feet. There was edema in the right calf and foot. There was no cyanosis. REVIEW OF LABORATORY DATA: CBC revealed a normal white blood cell count, hemoglobin, hematocrit, and platelet count. Chemistries revealed normal electrolytes, BUN and creatinine. The GFR calculated at 67.4. Glucose was elevated to 134. Calcium was normal as was total protein and albumin. Liver enzymes are not elevated. Troponin was not elevated. Alcohol was not detected. PT/INR was 1. Urinalysis was negative. MRI brain was performed, 06/08/2018, without contrast. This study revealed no evidence of an acute process, but there was a remote lacunar infarction in the left thalamus. There was mild atrophy for age. CTA of the head and neck was performed 09/15/2017 revealing major intracranial and extracranial vessels to be patent. Echocardiogram was performed, 09/16/2017, and revealed ejection fraction of 60%-65%. There is no major valvular disease. A cardioembolic source was not identified. IMPRESSION: The patient is a very pleasant 63-year-old man who previously had a left thalamic stroke leading to right-sided symptoms with coordination changes and sensory changes. 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 He had increased numbness and tingling on the right side for unclear reasons. This has come and gone, but this is the first time it stayed for all day long. I am relieved the MRI did not reveal distinct evidence for a new stroke. The only change I see is that he was switched from Plavix to Aggrenox. RECOMMENDATIONS: I would recommend continuing with Plavix and aspirin. After a month, the aspirin can be discontinued in favor of straight Plavix. I would discontinue Aggrenox. He should continue with atorvastatin for management of his hyperlipidemia. He should continue with positive lifestyle habits with diet and exercise. From a neurologic perspective, he may be dismissed. I appreciate being involved in his care. ANASTASIYA POST MD DR: REBECA/nell JOB#: [id number] / [id number] SERGIO Ahn MD
[2018-06-08 23:12] VITALS: BP 132/72
[2018-06-09 03:15] VITALS: BP 139/78
[2018-06-09] MEDS: HEPARIN for SUB-Q USE 5,000 UNIT/ML VIAL. SQ SCH (05:27)
[2018-06-09 05:57] LABS: BASO % 1 % (0-3); EOS # 0.2 x10^3/uL (0.0-0.7); EOS % 3 % (0-3); HEMATOCRIT 41.8 % (39.0-53.0); HEMOGLOBIN 14.2 g/dL (13.0-17.5); LYMPH # 2.5 x10^3/uL (1.0-4.8); LYMPH % 39 % (24-48); MEAN CORPUSCULAR HEMOGLOBIN 32 pg (25-35); MEAN CORPUSCULAR HGB CONC 34 g/dL (31-37); MEAN CORPUSCULAR VOLUME 93 fL (79-100); MONO # 0.8 x10^3/uL (0.0-1.1); MONO % 13 % (0-9); NEUT # 2.9 x10^3uL (1.8-7.7); NEUT % 45 % (31-73); PLATELET COUNT 216 x10^3/uL (140-400); RED BLOOD COUNT 4.49 x10^6/uL (4.30-5.70); WHITE BLOOD COUNT 6.4 x10^3/uL (4.0-11.0)
[2018-06-09 06:38] LABS: CALCIUM 8.5 mg/dL (8.5-10.1); GFR 75.2; POTASSIUM 3.7 mmol/L (3.5-5.1)
[2018-06-09 07:00] VITALS: BP 144/79
[2018-06-09] MEDS: INSULIN LISPRO 300 UNITS/3 ML INSULN.PEN. SQ SCH ×2 (08:00→12:00)
[2018-06-09 08:16] LABS: CREATININE ISTAT 0.9 mg/dL (0.5-1.4); HEMOGLOBIN ISTAT 15.3 g/dL (14-18); ION CA ISTAT 1.16 mmol/L (1.13-1.32); POTASSIUM ISTAT 3.9 mmol/L (3.5-5.0)
[2018-06-09] MEDS: FLUTICASONE 50MCG/NASAL SPRAY 16GM BOTTLE. NS SCH (09:00)
[2018-06-09] MEDS: SENNOSIDES/DOCUSATE 8.6/50MG TABLET. PO SCH (09:17)
[2018-06-09] MEDS: sulfaSALAzine 500 MG TABLET PO SCH (09:17)
[2018-06-09] MEDS: CLOPIDOGREL BISULFATE 75 MG TABLET PO SCH (09:17)
[2018-06-09] MEDS: OMEGA-3 FATTY ACIDS/FISH OIL 1,000 MG CAPSULE. PO SCH (09:17)
[2018-06-09] MEDS: metFORMIN 500 MG TABLET PO SCH (09:17)
[2018-06-09] MEDS: PANTOPRAZOLE 40 MG TABLET.DR. PO SCH (09:17)
[2018-06-09] MEDS: METOPROLOL SUCC 24HR ER 50 MG TAB.ER.24H. PO SCH (09:24)
--- NOTE | 2018-06-09 10:57 | CONS ---
DATE OF CONSULTATION: 06/09/2018 ATTENDING PHYSICIAN: Gael Riojas M.D. REASON FOR CONSULTATION: The patient was seen at the request of Dr. Riojas for rehab evaluation. PATIENT LOCATION: He is in room 669. HISTORY OF PRESENT ILLNESS: This is a 63-year-old right-handed male with history of previous left thalamic infarct in September of this year; also obstructive sleep apnea, on CPAP; hypertension and ulcerative colitis. The patient was admitted on 06/07/2018 with numbness, right upper extremity and also increased weakness in his right arm and right face and some numbness in his right leg. The patient had residual right upper extremity numbness since his cerebrovascular accident in September, but it got somewhat better. The patient denies any trouble with his bowel or bladder control or speech or swallowing. The patient has been on Plavix and aspirin. The patient was noted with blood pressure systolic of 170 mmHg. The patient was admitted for further evaluation and treatment on 06/07/2018. The patient had a CT scan of the brain and MRI scan, which failed to reveal any acute abnormality. It showed small vessel ischemic disease and residuals from old thalamic infarct. The patient denies any neck pain. The patient lives with his family, had stairs to manage and has been independent with his mobility and self-care skills prior to the present hospitalization. PAST MEDICAL HISTORY: Also includes previous GI bleeding, osteoarthritis, diabetes mellitus and status post hernia repair. ALLERGIES: He is not known allergic to any medication. PHYSICAL EXAMINATION: Today revealed a middle-aged male. He was alert; oriented to time, place, person and circumstance and followed commands appropriately. Moved all 4 extremities voluntarily, where he had 4+/5 grade muscle strength. Deep tendon reflexes were decreased overall, with absent ankle jerks. He had equal perception of touch and pinprick sensation bilaterally. The patient had mild incoordination using his right upper extremity when compared to left side. He was independent with bed mobility, transfers, and walking. He can even walk on his tiptoes and on his heels and can walk on a straight line, one foot in front of other without any loss of balance. His skin was intact at this time. Negative Tinel sign over median nerve at the wrist and over ulnar nerve at the wrist and elbow and negative Phalen sign at both wrists and he had pain-free range of motion of his cervical spine, without any tenderness to palpation in that area. ASSESSMENT: The patient with probable transient ischemic attack of recent onset, 06/07/2018, superimposed on a previous left thalamic infarct with mild incoordination using his right upper extremity. The patient with known hypertension, hyperlipidemia, previous GI bleeding, inflammatory bowel disease, osteoarthritis and diabetes mellitus with clinical evidence of peripheral neuropathy. RECOMMENDATIONS: Home when medically stable, with outpatient followup. Dr. Riojas, I appreciate asking me to participate in the care of this interesting patient. I will be glad to follow him with you as needed for his rehabilitation. HAFSA ALFARO MD DR: KYLIE/nell JOB#: [id number] / [id number]
[2018-06-09 11:00] VITALS: BP 132/84
--- NOTE | 2018-06-09 12:01 | PDOC ---
PROGRESS NOTES History of Present Illness History of Present Illness Assessment/Plan Assessment/Plan A/P: Right sided weakness - with symptom duration this is a new CVA outside the TPA window. Reloaded on plavix + ASA. High intensity statin, Consult neuro. Telemetry. MRI noted to be stat today HTN - restart home meds. 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, encouraged to await therapy, rehab FEN - general diet, ada PPX - heparin and PPI FULL CODE Inpatient for new CVA, will consult neuro, etiology should be investigated, though off plavix may have been the trigger PT/OT/ ST, consult DR Contreras montiel for d/c Vitals Vitals Vital Signs Date Time Temp Pulse Resp B/P (MAP) Pulse Ox O2 Delivery O2 Flow Rate FiO2 06/09/18 11:00 97.9 63 16 132/84 (100) 93 Room Air 97.9 Physical Exam General: Alert, Oriented X3, Cooperative, No acute distress, Other (mildly discouraged) Heart: Regular rate, Normal S1, Normal S2, No murmurs Lungs: Clear Abdomen: Normal bowel sounds, Soft, No tenderness, No hepatosplenomegaly, No masses Extremities: No clubbing, No cyanosis, No edema, Normal pulses, No tenderness/ swelling Skin: No rashes, No breakdown, No significant lesion Labs LABS Laboratory Tests Test 06/08/18 16:17 06/08/18 21:04 06/09/18 04:50 06/09/18 07:20 Glucose (Fingerstick) 92 mg/dL (70-99) 141 mg/dL (70-99) 128 mg/dL (70-99) White Blood Count 6.4 x10^3/uL (4.0-11.0) Red Blood Count 4.49 x10^6/uL (4.30-5.70) Hemoglobin 14.2 g/dL (13.0-17.5) Hematocrit 41.8 % (39.0-53.0) Mean Corpuscular Volume 93 fL (79-100) Mean Corpuscular Hemoglobin 32 pg (25-35) Mean Corpuscular Hemoglobin Concent 34 g/dL (31-37) Red Cell Distribution Width 13.0 % (11.5-14.5) Platelet Count 216 x10^3/uL (140-400) Neutrophils (%) (Auto) 45 % (31-73) Lymphocytes (%) (Auto) 39 % (24-48) Monocytes (%) (Auto) 13 % (0-9) Eosinophils (%) (Auto) 3 % (0-3) Basophils (%) (Auto) 1 % (0-3) Neutrophils # (Auto) 2.9 x10^3uL (1.8-7.7) Lymphocytes # (Auto) 2.5 x10^3/uL (1.0-4.8) Monocytes # (Auto) 0.8 x10^3/uL (0.0-1.1) Eosinophils # (Auto) 0.2 x10^3/uL (0.0-0.7) Basophils # (Auto) 0.0 x10^3/uL (0.0-0.2) Sodium Level 143 mmol/L (136-145) Potassium Level 3.7 mmol/L (3.5-5.1) Chloride Level 105 mmol/L (98-107) Carbon Dioxide Level 28 mmol/L (21-32) Anion Gap 10 (6-14) Blood Urea Nitrogen 10 mg/dL (8-26) Creatinine 1.0 mg/dL (0.7-1.3) Estimated GFR (Cockcroft-Gault) 75.2 Glucose Level 119 mg/dL (70-99) Calcium Level 8.5 mg/dL (8.5-10.1) Test 06/09/18 11:55 Glucose (Fingerstick) 112 mg/dL (70-99) Comment Review of Relevant I have reviewed the following items manasa (where applicable) has been applied. Labs Laboratory Tests Test 06/07/18 19:13 06/07/18 19:15 06/07/18 19:18 06/07/18 19:33 Glucose (Fingerstick) 132 mg/dL (70-99) White Blood Count 9.1 x10^3/uL (4.0-11.0) Red Blood Count 4.66 x10^6/uL (4.30-5.70) Hemoglobin 15.0 g/dL (13.0-17.5) Hematocrit 42.9 % (39.0-53.0) Mean Corpuscular Volume 92 fL (79-100) Mean Corpuscular Hemoglobin 32 pg (25-35) Mean Corpuscular Hemoglobin Concent 35 g/dL (31-37) Red Cell Distribution Width 12.9 % (11.5-14.5) Platelet Count 246 x10^3/uL (140-400) Neutrophils (%) (Auto) 51 % (31-73) Lymphocytes (%) (Auto) 38 % (24-48) Monocytes (%) (Auto) 8 % (0-9) Eosinophils (%) (Auto) 2 % (0-3) Basophils (%) (Auto) 1 % (0-3) Neutrophils # (Auto) 4.7 x10^3uL (1.8-7.7) Lymphocytes # (Auto) 3.5 x10^3/uL (1.0-4.8) Monocytes # (Auto) 0.8 x10^3/uL (0.0-1.1) Eosinophils # (Auto) 0.1 x10^3/uL (0.0-0.7) Basophils # (Auto) 0.1 x10^3/uL (0.0-0.2) Sodium Level 143 mmol/L (136-145) Potassium Level 3.8 mmol/L (3.5-5.1) Chloride Level 104 mmol/L (98-107) Carbon Dioxide Level 30 mmol/L (21-32) Anion Gap 9 (6-14) 16 mmol/L (6-14) Blood Urea Nitrogen 12 mg/dL (8-26) Creatinine 1.1 mg/dL (0.7-1.3) Estimated GFR (Cockcroft-Gault) 67.4 BUN/Creatinine Ratio 11 (6-20) Glucose Level 134 mg/dL (70-99) 131 mg/dL (70-99) Calcium Level 9.2 mg/dL (8.5-10.1) Total Bilirubin 0.4 mg/dL (0.2-1.0) Aspartate Amino Transf (AST/SGOT) 21 U/L (15-37) Alanine Aminotransferase (ALT/SGPT) 23 U/L (16-63) Alkaline Phosphatase 89 U/L (46-116) Troponin I Quantitative < 0.017 ng/mL (0.000-0.055) Total Protein 7.6 g/dL (6.4-8.2) Albumin 3.7 g/dL (3.4-5.0) Albumin/Globulin Ratio 0.9 (1.0-1.7) Ethyl Alcohol Level < 10 mg/dL (0-10) Bedside Hemoglobin 15.3 g/dL (14-18) Bedside Hematocrit 45 % (37-52) Bedside Sodium 141 mmol/L (135-145) Bedside Potassium 3.9 mmol/L (3.5-5.0) Bedside Chloride 100 mmol/L (98-110) Bedside Total CO2 30 mmol/L (23-32) Bedside Blood Urea Nitrogen 13 mg/dL (8-26) Bedside Creatinine 0.9 mg/dL (0.5-1.4) Bedside Ionized Calcium (Ana) 1.16 mmol/L (1.13-1.32) Prothrombin Time 12.7 SEC (11.7-14.0) Prothromb Time International Ratio 1.0 (0.8-1.1) Test 06/07/18 21:30 06/07/18 21:35 06/08/18 07:33 06/08/18 11:07 Glucose (Fingerstick) 118 mg/dL (70-99) 151 mg/dL (70-99) 135 mg/dL (70-99) Urine Collection Type Unknown Urine Color Yellow Urine Clarity Clear Urine pH 7.0 Urine Specific [place] 1.015 Urine Protein Negative mg/dL (NEG-TRACE) Urine Glucose (UA) Negative mg/dL (NEG) Urine Ketones (Stick) Negative mg/dL (NEG) Urine Blood Negative (NEG) Urine Nitrite Negative (NEG) Urine Bilirubin Negative (NEG) Urine Urobilinogen Dipstick 0.2 mg/dL (0.2 mg/dL) Urine Leukocyte Esterase Negative (NEG) Urine RBC 0 /HPF (0-2) Urine WBC 0 /HPF (0-4) Urine Bacteria 0 /HPF (0-FEW) Test 06/08/18 16:17 06/08/18 21:04 06/09/18 04:50 06/09/18 07:20 Glucose (Fingerstick) 92 mg/dL (70-99) 141 mg/dL (70-99) 128 mg/dL (70-99) White Blood Count 6.4 x10^3/uL (4.0-11.0) Red Blood Count 4.49 x10^6/uL (4.30-5.70) Hemoglobin 14.2 g/dL (13.0-17.5) Hematocrit 41.8 % (39.0-53.0) Mean Corpuscular Volume 93 fL (79-100) Mean Corpuscular Hemoglobin 32 pg (25-35) Mean Corpuscular Hemoglobin Concent 34 g/dL (31-37) Red Cell Distribution Width 13.0 % (11.5-14.5) Platelet Count 216 x10^3/uL (140-400) Neutrophils (%) (Auto) 45 % (31-73) Lymphocytes (%) (Auto) 39 % (24-48) Monocytes (%) (Auto) 13 % (0-9) Eosinophils (%) (Auto) 3 % (0-3) Basophils (%) (Auto) 1 % (0-3) Neutrophils # (Auto) 2.9 x10^3uL (1.8-7.7) Lymphocytes # (Auto) 2.5 x10^3/uL (1.0-4.8) Monocytes # (Auto) 0.8 x10^3/uL (0.0-1.1) Eosinophils # (Auto) 0.2 x10^3/uL (0.0-0.7) Basophils # (Auto) 0.0 x10^3/uL (0.0-0.2) Sodium Level 143 mmol/L (136-145) Potassium Level 3.7 mmol/L (3.5-5.1) Chloride Level 105 mmol/L (98-107) Carbon Dioxide Level 28 mmol/L (21-32) Anion Gap 10 (6-14) Blood Urea Nitrogen 10 mg/dL (8-26) Creatinine 1.0 mg/dL (0.7-1.3) Estimated GFR (Cockcroft-Gault) 75.2 Glucose Level 119 mg/dL (70-99) Calcium Level 8.5 mg/dL (8.5-10.1) Test 06/09/18 11:55 Glucose (Fingerstick) 112 mg/dL (70-99) Laboratory Tests Test 06/08/18 16:17 06/08/18 21:04 06/09/18 04:50 06/09/18 07:20 Glucose (Fingerstick) 92 mg/dL (70-99) 141 mg/dL (70-99) 128 mg/dL (70-99) White Blood Count 6.4 x10^3/uL (4.0-11.0) Red Blood Count 4.49 x10^6/uL (4.30-5.70) Hemoglobin 14.2 g/dL (13.0-17.5) Hematocrit 41.8 % (39.0-53.0) Mean Corpuscular Volume 93 fL (79-100) Mean Corpuscular Hemoglobin 32 pg (25-35) Mean Corpuscular Hemoglobin Concent 34 g/dL (31-37) Red Cell Distribution Width 13.0 % (11.5-14.5) Platelet Count 216 x10^3/uL (140-400) Neutrophils (%) (Auto) 45 % (31-73) Lymphocytes (%) (Auto) 39 % (24-48) Monocytes (%) (Auto) 13 % (0-9) Eosinophils (%) (Auto) 3 % (0-3) Basophils (%) (Auto) 1 % (0-3) Neutrophils # (Auto) 2.9 x10^3uL (1.8-7.7) Lymphocytes # (Auto) 2.5 x10^3/uL (1.0-4.8) Monocytes # (Auto) 0.8 x10^3/uL (0.0-1.1) Eosinophils # (Auto) 0.2 x10^3/uL (0.0-0.7) Basophils # (Auto) 0.0 x10^3/uL (0.0-0.2) Sodium Level 143 mmol/L (136-145) Potassium Level 3.7 mmol/L (3.5-5.1) Chloride Level 105 mmol/L (98-107) Carbon Dioxide Level 28 mmol/L (21-32) Anion Gap 10 (6-14) Blood Urea Nitrogen 10 mg/dL (8-26) Creatinine 1.0 mg/dL (0.7-1.3) Estimated GFR (Cockcroft-Gault) 75.2 Glucose Level 119 mg/dL (70-99) Calcium Level 8.5 mg/dL (8.5-10.1) Test 06/09/18 11:55 Glucose (Fingerstick) 112 mg/dL (70-99) Medications Current Medications Clopidogrel Bisulfate (Plavix) 300 mg 1X ONCE PO Last administered on 20:12; Start 06/07/18 at 20:00; Stop 06/07/18 at 20:01; Status DC Aspirin (Children'S Aspirin) 81 mg 1X ONCE PO Last administered on 06/07/18 20:11; Start 06/07/18 at 20:00; Stop 06/07/18 at 20:01; Status DC Losartan Potassium (Cozaar) 50 mg QHS PO Last administered on 06/08/18 20:16; Start 06/07/18 at 22:00 Metoprolol Succinate (Toprol Xl) 100 mg DAILY PO Last administered on 09:24; Start 06/08/18 at 09:00 Fish Oil (Fish Oil) 1,000 mg BID PO Last administered on 06/09/18 09:17; Start 06/08/18 at 09:00 Atorvastatin Calcium (Lipitor) 80 mg HS PO Last administered on 06/08/18 20:16 ; Start 06/07/18 at 22:00 Fluticasone Propionate (Flonase) 2 spray DAILY NS Last administered on 08:39; Start 06/08/18 at 09:00 Metformin HCl (Glucophage) 500 mg BIDWMEALS PO Last administered on 06/09/18 09:17; Start 06/08/18 at 08:00 Pantoprazole Sodium (Protonix) 40 mg DAILYAC PO Last administered on 06/09/18 09:17; Start 06/08/18 at 07:30 Sulfasalazine (Azulfidine) 500 mg BID PO Last administered on 06/09/18 09:17; Start 06/08/18 at 09:00 Insulin Human Lispro (HumaLOG) 0-5 UNITS TIDWMEALS SQ ; Start 06/08/18 at 08:00 Dextrose (Dextrose 50%-Water Syringe) 12.5 gm PRN Q15MIN PRN IV SEE COMMENTS; Start 06/07/18 at 22:00 Clopidogrel Bisulfate (Plavix) 75 mg DAILYWBKFT PO Last administered on at 09:17; Start 06/08/18 at 08:00 Ondansetron HCl (Zofran) 4 mg PRN Q6HRS PRN IV NAUSEA/VOMITING; Start 06/07/18 at 23:30 Acetaminophen (Tylenol) 650 mg PRN Q6HRS PRN PO Headaches, Temp > 101.5F; Start 06/07/18 at 23:30 Senna/Docusate Sodium (Senna Plus) 1 tab BID PO Last administered on 06/09/18at 09:17; Start 06/08/18 at 09:00 Lactulose (Lactulose) 20 gm PRN Q12HR PRN PO CONSTIPATION; Start 06/07/18 at 23 :30 Heparin Sodium (Porcine) (Heparin Sodium) 5,000 unit Q8HRS SQ Last administered on 06/08/18at 06:21; Start 06/08/18 at 06:00 Active Scripts Active Reported Aggrenox 25 Mg-200 Mg Capsule (Aspirin/Dipyridamole) 1 Each Cpmp.12hr 1 Each PO DAILY Atorvastatin Calcium 80 Mg Tablet 80 Mg PO HS Metformin Hcl 500 Mg Tablet 500 Mg PO BIDWMEALS Sulfasalazine 500 Mg Tablet 500 Mg PO BID Omeprazole 20 Mg Tablet.dr 1 Tab PO DAILY Metoprolol Succinate 50 Mg Tab.er.24h 100 Mg PO Losartan Potassium 50 Mg Tablet 50 Mg PO DAILY Folic Acid 0.8 Mg Capsule 0.8 Mg PO Flonase Allergy Relief (Fluticasone Propionate) 9.9 Ml [place].susp 2 Sprays NS DAILY Fish Oil 1,000 Mg Capsule ([place]-3 Fatty Acids/Fish Oil) 1 Each Capsule 1 Each PO BID Daily Meg (Multivitamin) 1 Each Tablet 1 Each PO Aspirin 81 Mg Tab.chew 1 Tab PO DAILY Zyrtec (Cetirizine Hcl) 10 Mg Capsule 10 Mg PO Vitals/I & O Vital Sign - Last 24 Hours 06/08/18 06/08/18 06/08/18 06/08/18 14:45 19:45 20:00 20:16 Temp 97.7 98.4 97.7 98.4 Pulse 67 66 66 Resp 18 16 B/P (MAP) 135/73 (93) 117/67 (84) 117/67 Pulse Ox 96 95 O2 Delivery Room Air Room Air Room Air 06/08/18 06/09/18 06/09/18 06/09/18 23:12 03:15 07:00 08:00 Temp 97.9 97.9 97.9 97.9 97.9 97.9 Pulse 64 61 64 Resp 16 16 16 B/P (MAP) 132/72 (92) 139/78 (98) 144/79 (100) Pulse Ox 94 94 93 O2 Delivery Room Air BiPAP/CPAP Room Air Room Air 06/09/18 06/09/18 09:24 11:00 Temp 97.9 97.9 Pulse 64 63 Resp 16 B/P (MAP) 144/79 132/84 (100) Pulse Ox 93 O2 Delivery Room Air Intake and Output 06/08/18 06/08/18 06/09/18 15:00 23:00 07:00 Intake Total 240 ml 500 ml Output Total 550 ml 500 ml Balance -550 ml -260 ml 500 ml ANTONIO QUINTANILLA MD Jun 09, 2018 12:01
--- NOTE | 2018-06-09 14:16 | PDOC3 ---
Discharge Summary Date of Admission: Jun 07, 2018 Date of Discharge: Jun 09, 2018 Follow-Up: 3-5 days Admitting Diagnosis comment: History of Present Illness History of Present Illness discharge diagnosis Assessment/Plan A/P: Right sided weakness - with symptom duration this is a new CVA outside the TPA window. Reloaded on plavix + ASA. High intensity statin, Consult neuro. Telemetry. MRI noted HTN - restart home meds. 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, encouraged to await therapy, rehab FEN - general diet, ada PPX - heparin and PPI FULL CODE consulted neuro, , though off plavix may have been the trigger d/c aggranox PT/OT/ ST, consult DR Contreras montiel for d/c Vitals Vitals Vital Signs Date Time Temp Pulse Resp B/P (MAP) Pulse Ox O2 Delivery O2 Flow Rate FiO2 06/09/18 11:00 97.9 63 16 132/84 (100) 93 Room Air 97.9 Physical Exam General: Alert, Oriented X3, Cooperative, No acute distress, Other (mildly discouraged) Heart: Regular rate, Normal S1, Normal S2, No murmurs Lungs: Clear Abdomen: Normal bowel sounds, Soft, No tenderness, No hepatosplenomegaly, No masses Extremities: No clubbing, No cyanosis, No edema, Normal pulses, No tenderness/ swelling Skin: No rashes, No breakdown, No significant lesion Labs Brief Hospital Course Mr. Wilkinson is a 63 old [sex] who presented with [cva ] CONDITION AT DISCHARGE: Improved Discharge Medications Current Medications Clopidogrel Bisulfate (Plavix) 300 mg 1X ONCE PO Last administered on at 20:12; Start 06/07/18 at 20:00; Stop 06/07/18 at 20:01; Status DC Aspirin (Children'S Aspirin) 81 mg 1X ONCE PO Last administered on 06/07/18at 20:11; Start 06/07/18 at 20:00; Stop 06/07/18 at 20:01; Status DC Losartan Potassium (Cozaar) 50 mg QHS PO Last administered on 06/08/18 20:16; Start 06/07/18 at 22:00 Metoprolol Succinate (Toprol Xl) 100 mg DAILY PO Last administered on 09:24; Start 06/08/18 at 09:00 Fish Oil (Fish Oil) 1,000 mg BID PO Last administered on 06/09/18 09:17; Start 06/08/18 at 09:00 Atorvastatin Calcium (Lipitor) 80 mg HS PO Last administered on 06/08/18 20:16 ; Start 06/07/18 at 22:00 Fluticasone Propionate (Flonase) 2 spray DAILY NS Last administered on 08:39; Start 06/08/18 at 09:00 Metformin HCl (Glucophage) 500 mg BIDWMEALS PO Last administered on 06/09/18 09:17; Start 06/08/18 at 08:00 Pantoprazole Sodium (Protonix) 40 mg DAILYAC PO Last administered on 06/09/18 09:17; Start 06/08/18 at 07:30 Sulfasalazine (Azulfidine) 500 mg BID PO Last administered on 06/09/18 09:17; Start 06/08/18 at 09:00 Insulin Human Lispro (HumaLOG) 0-5 UNITS TIDWMEALS SQ ; Start 06/08/18 at 08:00 Dextrose (Dextrose 50%-Water Syringe) 12.5 gm PRN Q15MIN PRN IV SEE COMMENTS; Start 06/07/18 at 22:00 Clopidogrel Bisulfate (Plavix) 75 mg DAILYWBKFT PO Last administered on 09:17; Start 06/08/18 at 08:00 Ondansetron HCl (Zofran) 4 mg PRN Q6HRS PRN IV NAUSEA/VOMITING; Start 06/07/18 at 23:30 Acetaminophen (Tylenol) 650 mg PRN Q6HRS PRN PO Headaches, Temp > 101.5F; Start 06/07/18 at 23:30 Senna/Docusate Sodium (Senna Plus) 1 tab BID PO Last administered on 11/5/18at 09:17; Start 06/08/18 at 09:00 Lactulose (Lactulose) 20 gm PRN Q12HR PRN PO CONSTIPATION; Start 06/07/18 at 23 :30 Heparin Sodium (Porcine) (Heparin Sodium) 5,000 unit Q8HRS SQ Last administered on 06/08/18at 06:21; Start 06/08/18 at 06:00 Active Scripts Active Reported Aggrenox 25 Mg-200 Mg Capsule (Aspirin/Dipyridamole) 1 Each Cpmp.12hr 1 Each PO DAILY Atorvastatin Calcium 80 Mg Tablet 80 Mg PO HS Metformin Hcl 500 Mg Tablet 500 Mg PO BIDWMEALS Sulfasalazine 500 Mg Tablet 500 Mg PO BID Omeprazole 20 Mg Tablet.dr 1 Tab PO DAILY Metoprolol Succinate 50 Mg Tab.er.24h 100 Mg PO Losartan Potassium 50 Mg Tablet 50 Mg PO DAILY Folic Acid 0.8 Mg Capsule 0.8 Mg PO Flonase Allergy Relief (Fluticasone Propionate) 9.9 Ml [place].susp 2 Sprays NS DAILY Fish Oil 1,000 Mg Capsule ([place]-3 Fatty Acids/Fish Oil) 1 Each Capsule 1 Each PO BID Daily Meg (Multivitamin) 1 Each Tablet 1 Each PO Aspirin 81 Mg Tab.chew 1 Tab PO DAILY Zyrtec (Cetirizine Hcl) 10 Mg Capsule 10 Mg PO Vital Signs Vital Signs Date Time Temp Pulse Resp B/P (MAP) Pulse Ox O2 Delivery O2 Flow Rate FiO2 06/09/18 11:00 97.9 63 16 132/84 (100) 93 Room Air 97.9 Labs Laboratory Tests Test 06/07/18 19:13 06/07/18 19:15 06/07/18 19:18 06/07/18 19:33 Glucose (Fingerstick) 132 mg/dL (70-99) White Blood Count 9.1 x10^3/uL (4.0-11.0) Red Blood Count 4.66 x10^6/uL (4.30-5.70) Hemoglobin 15.0 g/dL (13.0-17.5) Hematocrit 42.9 % (39.0-53.0) Mean Corpuscular Volume 92 fL (79-100) Mean Corpuscular Hemoglobin 32 pg (25-35) Mean Corpuscular Hemoglobin Concent 35 g/dL (31-37) Red Cell Distribution Width 12.9 % (11.5-14.5) Platelet Count 246 x10^3/uL (140-400) Neutrophils (%) (Auto) 51 % (31-73) Lymphocytes (%) (Auto) 38 % (24-48) Monocytes (%) (Auto) 8 % (0-9) Eosinophils (%) (Auto) 2 % (0-3) Basophils (%) (Auto) 1 % (0-3) Neutrophils # (Auto) 4.7 x10^3uL (1.8-7.7) Lymphocytes # (Auto) 3.5 x10^3/uL (1.0-4.8) Monocytes # (Auto) 0.8 x10^3/uL (0.0-1.1) Eosinophils # (Auto) 0.1 x10^3/uL (0.0-0.7) Basophils # (Auto) 0.1 x10^3/uL (0.0-0.2) Sodium Level 143 mmol/L (136-145) Potassium Level 3.8 mmol/L (3.5-5.1) Chloride Level 104 mmol/L (98-107) Carbon Dioxide Level 30 mmol/L (21-32) Anion Gap 9 (6-14) 16 mmol/L (6-14) Blood Urea Nitrogen 12 mg/dL (8-26) Creatinine 1.1 mg/dL (0.7-1.3) Estimated GFR (Cockcroft-Gault) 67.4 BUN/Creatinine Ratio 11 (6-20) Glucose Level 134 mg/dL (70-99) 131 mg/dL (70-99) Calcium Level 9.2 mg/dL (8.5-10.1) Total Bilirubin 0.4 mg/dL (0.2-1.0) Aspartate Amino Transf (AST/SGOT) 21 U/L (15-37) Alanine Aminotransferase (ALT/SGPT) 23 U/L (16-63) Alkaline Phosphatase 89 U/L (46-116) Troponin I Quantitative < 0.017 ng/mL (0.000-0.055) Total Protein 7.6 g/dL (6.4-8.2) Albumin 3.7 g/dL (3.4-5.0) Albumin/Globulin Ratio 0.9 (1.0-1.7) Ethyl Alcohol Level < 10 mg/dL (0-10) Bedside Hemoglobin 15.3 g/dL (14-18) Bedside Hematocrit 45 % (37-52) Bedside Sodium 141 mmol/L (135-145) Bedside Potassium 3.9 mmol/L (3.5-5.0) Bedside Chloride 100 mmol/L (98-110) Bedside Total CO2 30 mmol/L (23-32) Bedside Blood Urea Nitrogen 13 mg/dL (8-26) Bedside Creatinine 0.9 mg/dL (0.5-1.4) Bedside Ionized Calcium (Ana) 1.16 mmol/L (1.13-1.32) Prothrombin Time 12.7 SEC (11.7-14.0) Prothromb Time International Ratio 1.0 (0.8-1.1) Test 06/07/18 21:30 06/07/18 21:35 06/08/18 07:33 06/08/18 11:07 Glucose (Fingerstick) 118 mg/dL (70-99) 151 mg/dL (70-99) 135 mg/dL (70-99) Urine Collection Type Unknown Urine Color Yellow Urine Clarity Clear Urine pH 7.0 Urine Specific [place] 1.015 Urine Protein Negative mg/dL (NEG-TRACE) Urine Glucose (UA) Negative mg/dL (NEG) Urine Ketones (Stick) Negative mg/dL (NEG) Urine Blood Negative (NEG) Urine Nitrite Negative (NEG) Urine Bilirubin Negative (NEG) Urine Urobilinogen Dipstick 0.2 mg/dL (0.2 mg/dL) Urine Leukocyte Esterase Negative (NEG) Urine RBC 0 /HPF (0-2) Urine WBC 0 /HPF (0-4) Urine Bacteria 0 /HPF (0-FEW) Test 06/08/18 16:17 06/08/18 21:04 06/09/18 04:50 06/09/18 07:20 Glucose (Fingerstick) 92 mg/dL (70-99) 141 mg/dL (70-99) 128 mg/dL (70-99) White Blood Count 6.4 x10^3/uL (4.0-11.0) Red Blood Count 4.49 x10^6/uL (4.30-5.70) Hemoglobin 14.2 g/dL (13.0-17.5) Hematocrit 41.8 % (39.0-53.0) Mean Corpuscular Volume 93 fL (79-100) Mean Corpuscular Hemoglobin 32 pg (25-35) Mean Corpuscular Hemoglobin Concent 34 g/dL (31-37) Red Cell Distribution Width 13.0 % (11.5-14.5) Platelet Count 216 x10^3/uL (140-400) Neutrophils (%) (Auto) 45 % (31-73) Lymphocytes (%) (Auto) 39 % (24-48) Monocytes (%) (Auto) 13 % (0-9) Eosinophils (%) (Auto) 3 % (0-3) Basophils (%) (Auto) 1 % (0-3) Neutrophils # (Auto) 2.9 x10^3uL (1.8-7.7) Lymphocytes # (Auto) 2.5 x10^3/uL (1.0-4.8) Monocytes # (Auto) 0.8 x10^3/uL (0.0-1.1) Eosinophils # (Auto) 0.2 x10^3/uL (0.0-0.7) Basophils # (Auto) 0.0 x10^3/uL (0.0-0.2) Sodium Level 143 mmol/L (136-145) Potassium Level 3.7 mmol/L (3.5-5.1) Chloride Level 105 mmol/L (98-107) Carbon Dioxide Level 28 mmol/L (21-32) Anion Gap 10 (6-14) Blood Urea Nitrogen 10 mg/dL (8-26) Creatinine 1.0 mg/dL (0.7-1.3) Estimated GFR (Cockcroft-Gault) 75.2 Glucose Level 119 mg/dL (70-99) Calcium Level 8.5 mg/dL (8.5-10.1) Test 06/09/18 11:55 Glucose (Fingerstick) 112 mg/dL (70-99) Laboratory Tests Test 06/08/18 16:17 06/08/18 21:04 06/09/18 04:50 06/09/18 07:20 Glucose (Fingerstick) 92 mg/dL (70-99) 141 mg/dL (70-99) 128 mg/dL (70-99) White Blood Count 6.4 x10^3/uL (4.0-11.0) Red Blood Count 4.49 x10^6/uL (4.30-5.70) Hemoglobin 14.2 g/dL (13.0-17.5) Hematocrit 41.8 % (39.0-53.0) Mean Corpuscular Volume 93 fL (79-100) Mean Corpuscular Hemoglobin 32 pg (25-35) Mean Corpuscular Hemoglobin Concent 34 g/dL (31-37) Red Cell Distribution Width 13.0 % (11.5-14.5) Platelet Count 216 x10^3/uL (140-400) Neutrophils (%) (Auto) 45 % (31-73) Lymphocytes (%) (Auto) 39 % (24-48) Monocytes (%) (Auto) 13 % (0-9) Eosinophils (%) (Auto) 3 % (0-3) Basophils (%) (Auto) 1 % (0-3) Neutrophils # (Auto) 2.9 x10^3uL (1.8-7.7) Lymphocytes # (Auto) 2.5 x10^3/uL (1.0-4.8) Monocytes # (Auto) 0.8 x10^3/uL (0.0-1.1) Eosinophils # (Auto) 0.2 x10^3/uL (0.0-0.7) Basophils # (Auto) 0.0 x10^3/uL (0.0-0.2) Sodium Level 143 mmol/L (136-145) Potassium Level 3.7 mmol/L (3.5-5.1) Chloride Level 105 mmol/L (98-107) Carbon Dioxide Level 28 mmol/L (21-32) Anion Gap 10 (6-14) Blood Urea Nitrogen 10 mg/dL (8-26) Creatinine 1.0 mg/dL (0.7-1.3) Estimated GFR (Cockcroft-Gault) 75.2 Glucose Level 119 mg/dL (70-99) Calcium Level 8.5 mg/dL (8.5-10.1) Test 06/09/18 11:55 Glucose (Fingerstick) 112 mg/dL (70-99) Allergies Allergies Coded Allergies Type Severity Reaction Last Updated Verified No Known Drug Allergies 07/30/17 No Disposition/Orders: D/C to Home FULBRIGHT,ANTONIO W MD Jun 09, 2018 14:16
--- NOTE | 2018-06-09 14:17 | DISCH ---
DISCHARGE INSTRUCTIONS Condition on Discharge Condition on Discharge: Stable Activity After Discharge Activity Instructions for Disc: Activity as tolerated Lifting Instructions after Dis: No heavy lifting, No pulling or pushing Exercise Instruction after Dis: Walk 10 min, 3 x per day Driving Instructions after Dis: Do not drive today Diet after Discharge Diet after Discharge: Diabetic No Calorie Level Checks after Discharge Checks after discharge: Check blood press - daily Contacting the DR. after DC Call your doctor for: If your condition worsens ANTONIO QUINTANILLA MD Jun 09, 2018 14:17
[2018-06-09] MEDS ORDERED: CLOP75TA PO (14:19)
[2018-06-09 15:00] VITALS: BP 149/86
--- NOTE | 2018-06-09 18:07 | PDOC ---
PROGRESS NOTES Assessment Assessment IMPRESSION: Recurrent right UE numbness and tingling. Left thalamic infarct in 2 received TPA at that time. DM. HTN. HLD. Obesity. No evidence of acute CVA this time. RECOMMENDATIONS/PLAN: Plavix 75 mg daily. Lipitor HS. Neurontin 100 mg tid. Weight reduction. Past Medical History Cardiovascular: HTN, Hyperlipidemia, Other CENTRAL NERVOUS SYSTEM: CVA, TIA GI: GI bleed, Inflam bowel disease Musculoskeletal: Osteoarthritis Renal/: Other Endocrine: Diabetes Past Surgical History Hernia Repair. Family History No Significant ALLERGY: Unknown MEDICATIONS: Refer to MAR SOCIAL HISTORY: Lives at home. Denies smoking, drinking and illicit drug use. REVIEW OF SYSTEMS: Constitutional: Obesity. Head: No traumatic brain or head injury. Skin: No edema, or rash. Ear: No infection. Eyes: No vision loss, or diplopia. Nose: No bleeding or purulent discharges. Hearing: No hearing decrease. Neck: No injury. Cardiac: HTN, HLD Pulmonary: No pneumonia. GI: No GI Ulcer, GI bleeding Urinary/genital: No dysuria, incontinence, urinary retention. Endocrine: Diabetes Mellitus, obesity. Skeletomuscular: No muscular atrophy, deformity. Neurological: see HP. Psychiatric: Denies drug use/abuse. Otherwise, not [id number] review of systems. PHYSICAL EXAMINATION: General appearance in no acute distress. HEENT: Normocephalic and nontraumatic. Eyes, nose, ears, and throat are unremarkable. Neck is supple. No lymphadenopathy. No bruits are heard over the carotid artery. No Crepitus. Cardiovascular: S1, S2, regular rate and rhythm. Pulmonary: Clear to auscultation bilaterally. Abdomen: Bowel sounds are positive. Abdomen is soft, nontender, and nondistended. Extremities: No rash, lesions, or edema. No restriction of range of motion NEUROLOGICAL EXAMINATION: Alert. Oriented to time, place and person. PERRL. EOMI. CN: no focal findings. Muscle tone: within normal. Muscle strength: 5 DTR: 2 Plantar reflex: Flexor response bilaterally Gait: At baseline normal. Sensory exam: no acute abnormal findings except subjective numbness and tinkling in right UE. No cerebellar signs elicited. F-T-N test accurate. Objective Objective Vital Signs Date Time Temp Pulse Resp B/P (MAP) Pulse Ox O2 Delivery O2 Flow Rate FiO2 11/5/18 15:00 98.2 65 16 149/86 (107) 94 Room Air 98.2 Intake and Output 06/09/18 07:00 Intake Total 740 ml Output Total 1050 ml Balance -310 ml Intake Oral 740 ml Output Urine Total 1050 ml # Voids 4 Vitals Signs Vitals VS - Last 72 Hours, by Label Date Time Temp Pulse Resp B/P (MAP) Pulse Ox O2 Delivery O2 Flow Rate FiO2 06/09/18 15:00 98.2 65 16 149/86 (107) 94 Room Air 98.2 06/09/18 11:00 97.9 63 16 132/84 (100) 93 Room Air 97.9 06/09/18 09:24 64 144/79 06/09/18 08:00 Room Air 06/09/18 07:00 97.9 64 16 144/79 (100) 93 Room Air 97.9 06/09/18 03:15 97.9 61 16 139/78 (98) 94 BiPAP/CPAP 97.9 06/08/18 23:12 97.9 64 16 132/72 (92) 94 Room Air 97.9 06/08/18 20:16 66 117/67 06/08/18 20:00 Room Air 06/08/18 19:45 98.4 66 16 117/67 (84) 95 Room Air 98.4 06/08/18 14:45 97.7 67 18 135/73 (93) 96 Room Air 97.7 06/08/18 10:41 98.1 61 18 128/74 (92) 93 Room Air 98.1 06/08/18 08:40 67 146/79 06/08/18 08:00 Room Air 06/08/18 07:46 97.5 67 18 146/79 (101) 96 Room Air 97.5 Laboratory Laboratory Laboratory Tests Test 06/08/18 21:04 06/09/18 04:50 06/09/18 07:20 06/09/18 11:55 Glucose (Fingerstick) 141 mg/dL (70-99) 128 mg/dL (70-99) 112 mg/dL (70-99) White Blood Count 6.4 x10^3/uL (4.0-11.0) Red Blood Count 4.49 x10^6/uL (4.30-5.70) Hemoglobin 14.2 g/dL (13.0-17.5) Hematocrit 41.8 % (39.0-53.0) Mean Corpuscular Volume 93 fL (79-100) Mean Corpuscular Hemoglobin 32 pg (25-35) Mean Corpuscular Hemoglobin Concent 34 g/dL (31-37) Red Cell Distribution Width 13.0 % (11.5-14.5) Platelet Count 216 x10^3/uL (140-400) Neutrophils (%) (Auto) 45 % (31-73) Lymphocytes (%) (Auto) 39 % (24-48) Monocytes (%) (Auto) 13 % (0-9) Eosinophils (%) (Auto) 3 % (0-3) Basophils (%) (Auto) 1 % (0-3) Neutrophils # (Auto) 2.9 x10^3uL (1.8-7.7) Lymphocytes # (Auto) 2.5 x10^3/uL (1.0-4.8) Monocytes # (Auto) 0.8 x10^3/uL (0.0-1.1) Eosinophils # (Auto) 0.2 x10^3/uL (0.0-0.7) Basophils # (Auto) 0.0 x10^3/uL (0.0-0.2) Sodium Level 143 mmol/L (136-145) Potassium Level 3.7 mmol/L (3.5-5.1) Chloride Level 105 mmol/L (98-107) Carbon Dioxide Level 28 mmol/L (21-32) Anion Gap 10 (6-14) Blood Urea Nitrogen 10 mg/dL (8-26) Creatinine 1.0 mg/dL (0.7-1.3) Estimated GFR (Cockcroft-Gault) 75.2 Glucose Level 119 mg/dL (70-99) Calcium Level 8.5 mg/dL (8.5-10.1) Comment Review of Relevant I have reviewed the following items manasa (where applicable) has been applied. IGOR COREY MD Jun 09, 2018 18:07
== END 2018-06-09 16:40 | disposition home or self-care (01) | DRG 66 ==
LOC: ER 18:57 → 6 SOUTH 19:46 → OBSVTOIN 19:46 → 6 SOUTH 20:09
PROVIDERS: ADMIT Internal Medicine; ATTEND Internal Medicine
DX: I63.9 Cerebral infarction, unspecified (principal); R53.1 Weakness; R20.0 Anesthesia of skin; R20.2 Paresthesia of skin; I10 Essential (primary) hypertension; E78.00 Pure hypercholesterolemia, unspecified; E11.42 Type 2 diabetes mellitus with diabetic polyneuropathy; M19.90 Unspecified osteoarthritis, unspecified site; G47.33 Obstructive sleep apnea (adult) (pediatric); E78.5 Hyperlipidemia, unspecified; E66.9 Obesity, unspecified; Z79.02 Long term (current) use of antithrombotics/antiplatelets; Z79.899 Other long term (current) drug therapy; Z87.442 Personal history of urinary calculi
CPT/HCPCS: 36415; 70450; 70551; 80047; 80048; 80053; 81001; 82962; 84484; 85025; 85610; 93005; G0480; J1644; J1815; 92610; 97110; 99285-25

== ENCOUNTER → 2018-11-03 | Outpatient (CLI) | payer OTHER ==
[~2018-11-03] MED LIST changes: +ASPI1CPM PO; +ATORVASTATIN CA80 MG PO; +HYDR-3164 PO; -HYDR-971 PO; +LOSA-73 PO; -LOSA50TA7 PO
[2018-11-03 11:04] LABS: ALBUMIN 3.8 g/dL (3.4-5.0); CALCIUM 8.5 mg/dL (8.5-10.1); CHOLESTEROL/HDL RATIO 3.3; GFR 75.2; POTASSIUM 3.7 mmol/L (3.5-5.1); TOTAL BILIRUBIN 0.5 mg/dL (0.2-1.0); TOTAL PROTEIN 7.8 g/dL (6.4-8.2)
[2018-11-03 11:22] LABS: BILIRUBIN,URINE NEGATIVE (NEG); CLARITY,URINE CLEAR; COLOR,URINE YELLOW; NITRITE,URINE NEGATIVE (NEG); PROTEIN,URINE 30 mg/dL (NEG-TRACE); UROBILINOGEN,URINE 0.2 mg/dL (0.2 mg/dL)
[2018-11-03 11:35] LABS: BACTERIA,URINE FEW /HPF (0-FEW); RBC,URINE OCC /HPF (0-2); SQUAMOUS EPITHELIAL CELL,UR OCC /LPF; WBC,URINE OCC /HPF (0-4)
[2018-11-03 20:10] LABS: CREAT RD UR 160.3 mg/dL (Not Estab.); MICRO CREAT RATIO 55.4 mg/g creat (0.0-30.0); MICROALB RD UR 88.8 ug/mL (Not Estab.)
[2018-11-04 04:12] LABS: HEMOGLOBIN A1C 7.7 % (4.8-5.6)
[2018-11-05 17:07] LABS: FECAL OB PT NEGATIVE (NEG)
== END | disposition home or self-care (01) ==
LOC: LAB 10:07
PROVIDERS: ATTEND Family Medicine
DX: Z12.5 Encounter for screening for malignant neoplasm of prostate (principal); Z12.11 Encounter for screening for malignant neoplasm of colon; E11.9 Type 2 diabetes mellitus without complications; E78.5 Hyperlipidemia, unspecified
CPT/HCPCS: 36415; 80053; 80061; 81001; 82043; 82274; 82570; 83036; 84436; 84443; G0103

== ENCOUNTER → 2019-11-04 | Outpatient (CLI) | payer OTHER ==
[2019-11-04 10:11] LABS: BILIRUBIN,URINE NEGATIVE (NEG); CLARITY,URINE CLEAR; COLOR,URINE YELLOW; NITRITE,URINE NEGATIVE (NEG); PH,URINE 6.5 (<5.0-8.0); PROTEIN,URINE 30 mg/dL (NEG-TRACE); UROBILINOGEN,URINE 0.2 mg/dL (0.2 mg/dL)
[2019-11-04 10:24] LABS: ALBUMIN 3.6 g/dL (3.4-5.0); CALCIUM 8.5 mg/dL (8.5-10.1); POTASSIUM 3.9 mmol/L (3.5-5.1); TOTAL BILIRUBIN 0.5 mg/dL (0.2-1.0); TOTAL PROTEIN 7.3 g/dL (6.4-8.2)
[2019-11-04 10:25] LABS: CHOLESTEROL/HDL RATIO 3.7
[2019-11-04 10:29] LABS: SQUAMOUS EPITHELIAL CELL,UR OCC /LPF
[2019-11-04 10:30] LABS: BACTERIA,URINE 0 /HPF (0-FEW)
[2019-11-04 20:07] LABS: CREAT RD UR 96.6 mg/dL (Not Estab.); MICROALB RD UR 98.5 ug/mL (Not Estab.)
[2019-11-05 02:07] LABS: HEMOGLOBIN A1C 9.7 % (4.8-5.6)
[2019-11-05 13:16] LABS: FECAL OB PT NEGATIVE (NEG)
== END ==
LOC: LAB 09:38
PROVIDERS: ATTEND Family Medicine
DX: Z12.5 Encounter for screening for malignant neoplasm of prostate (principal); Z12.11 Encounter for screening for malignant neoplasm of colon; E78.5 Hyperlipidemia, unspecified; E11.9 Type 2 diabetes mellitus without complications; R80.9 Proteinuria, unspecified
CPT/HCPCS: 80053; 80061; 81001; 82043; 82570; 83036; G0103; 36415; 82274

== ENCOUNTER → 2020-04-08 | Outpatient (CLI) | payer OTHER ==
[2020-04-08 11:50] LABS: ALBUMIN 3.7 g/dL (3.4-5.0); ALBUMIN/GLOBULIN RATIO 0.9 (1.0-1.7); CALCIUM 8.3 mg/dL (8.5-10.1); GFR 74.8; TOTAL BILIRUBIN 0.6 mg/dL (0.2-1.0); TOTAL PROTEIN 7.8 g/dL (6.4-8.2)
[2020-04-09 01:08] LABS: HEMOGLOBIN A1C 6.5 % (4.8-5.6)
== END | disposition home or self-care (01) ==
LOC: LAB 10:40
PROVIDERS: ATTEND Family Medicine
DX: E11.65 Type 2 diabetes mellitus with hyperglycemia (principal)
CPT/HCPCS: 36415; 80053; 83036

== ENCOUNTER → 2020-12-20 | Outpatient (CLI) | payer OTHER ==
[~2020-12-20] MED LIST changes: -MULT1TAB49 PO; +MULT1TAB50 PO
[2020-12-20 10:29] LABS: BILIRUBIN,URINE NEGATIVE (NEG); CLARITY,URINE CLEAR; COLOR,URINE YELLOW; NITRITE,URINE NEGATIVE (NEG); PH,URINE 5.5 (<5.0-8.0); PROTEIN,URINE 100 mg/dL (NEG-TRACE); UROBILINOGEN,URINE 0.2 mg/dL (0.2 mg/dL)
[2020-12-20 10:41] LABS: BACTERIA,URINE FEW /HPF (0-FEW); RBC,URINE OCC /HPF (0-2); WBC,URINE OCC /HPF (0-4)
[2020-12-20 10:57] LABS: CALCIUM 8.3 mg/dL (8.5-10.1); CHOLESTEROL/HDL RATIO 3.6; GFR 74.8; TOTAL BILIRUBIN 0.4 mg/dL (0.2-1.0); TOTAL PROTEIN 7.9 g/dL (6.4-8.2)
[2020-12-20 21:15] LABS: CREAT RD UR 163.8 mg/dL (Not Estab.); MICROALB RD UR 795.1 ug/mL (Not Estab.)
[2020-12-21 00:16] LABS: HEMOGLOBIN A1C 6.7 % (4.8-5.6)
== END ==
LOC: LAB 09:58
PROVIDERS: ATTEND Family Medicine
DX: Z12.11 Encounter for screening for malignant neoplasm of colon (principal); Z12.5 Encounter for screening for malignant neoplasm of prostate; I10 Essential (primary) hypertension; E11.9 Type 2 diabetes mellitus without complications
CPT/HCPCS: 80053; 80061; 81001; 82043; 82570; 83036; G0103

== ENCOUNTER 2020-12-24 09:51 | Observation (INO) | payer OTHER, MEDICARE ==
[~2020-12-24] VITALS: Ht 177.8 cm; Wt 119.3 kg
--- NOTE | 2020-12-24 10:48 | PHYS DOC ---
Past Medical History Past Medical History: CVA, Diabetes-Type II, High Cholesterol, Hypertension, Kidney Stone, TIA, Other Additional Past Medical Histor: Ulcerative colitis. Past Surgical History: Other Additional Past Surgical Histo: Hernia,L)hand surgery. Smoking Status: Never Smoker Alcohol Use: Occasionally Drug Use: None General Adult EDM: Chief Complaint: NEURO SYMPTOMS/DEFICITS HPI: HPI: Patient is a 65 year old male who presents with went to bed at midnight. And woke up at 6 AM with increased right arm, hand and upper leg numbness. He does have usual right hand tremors and right hand, arm and upper leg sensation loss due to his stroke in 2018. He states is just more than usual this morning. He states that his head feels slightly foggy but he is not dizzy. States he has a little bit of shortness of air but there is no chest pain. He denies any kind of pain at all he denies syncope, abdominal pain, nausea, vomiting, diarrhea, fever, recent illness, dizziness, headache, vision change, focal weakness. He i s on Plavix and aspirin daily. Patient has a history of CVA, diabetes, hypertension, GERD, high cholesterol, kidney stone, TIA and colitis. Review of Systems: Review of Systems: Constitutional: Denies fever or chills. [] Eyes: Denies change in visual acuity. [] HENT: Denies nasal congestion or sore throat. [] Respiratory: Denies cough or shortness of breath. [] Cardiovascular: Denies chest pain or edema. [] GI: Denies abdominal pain, nausea, vomiting, bloody stools or diarrhea. [] : Denies dysuria. [] Musculoskeletal: Denies back pain or joint pain. [] Integument: Denies rash. [] Neurologic: Denies headache, focal weakness. + Right sided worsening sensory changes. [] Endocrine: Denies polyuria or polydipsia. [] Lymphatic: Denies swollen glands. [] Psychiatric: Denies depression or anxiety. [] Heart Score: C/O Chest Pain: No Risk Factors: Risk Factors: DM, Current or recent (<one month) smoker, HTN, HLP, family history of CAD, obesity. Risk Scores: Score 0 - 3: 2.5% MACE over next 6 weeks - Discharge Home Score 4 - 6: 20.3% MACE over next 6 weeks - Admit for Clinical Observation Score 7 - 10: 72.7% MACE over next 6 weeks - Early Invasive Strategies Allergies: Allergies: Allergies Coded Allergies Type Severity Reaction Last Updated Verified No Known Drug Allergies 07/30/17 No Physical Exam: PE: Constitutional: Well developed, well nourished, no acute distress, non-toxic appearance. [] HENT: Normocephalic, atraumatic, bilateral external ears normal, oropharynx moist, no oral exudates, nose normal. [] Eyes: PERRLA, EOMI, conjunctiva normal, no discharge. [] Neck: Normal range of motion, no tenderness, supple, no stridor. [] Cardiovascular:Heart rate regular rhythm, no murmur [] Lungs & Thorax: Bilateral breath sounds clear to auscultation [] Abdomen: Bowel sounds normal, soft, no tenderness, no masses, no pulsatile masses. [] Skin: Warm, dry, no erythema, no rash. [] Back: No tenderness, no CVA tenderness. [] Extremities: No tenderness, no cyanosis, no clubbing, ROM intact, no edema. [] Neurologic: Alert and oriented X 3, normal motor function, worsening of right side sensory function, no focal deficits noted. [] Psychologic: Affect normal, judgement normal, mood normal. [] Current Patient Data: Labs: Laboratory Tests Test 12/24/20 09:55 Glucose (Fingerstick) 194 mg/dL (70-99) H EKG: EK and read by Dr. Art sinus rhythm and no STEMI Radiology/Procedures: Radiology/Procedures: [] Impression: [facility] [address] [place], [place] [id number] IMAGING REPORT Signed PATIENT: GIUSEPPE PINA ACCOUNT: [id number] : 1955 LOCATION: ER AGE: 65 SEX: M EXAM STATUS: REG ER ORD. PHYSICIAN: SUSAN DICKSON APRN REASON: RT HAND NUMBNESS PROCEDURE: CT ANGIOGRAPHY HEAD AND NECK PQRS Compliance Statement: One or more of the following individualized dose reduction techniques were utilized for this examination: 1. Automated exposure control 2. Adjustment of the mA and/or kV according to patient size 3. Use of iterative reconstruction technique CTA HEAD AND NECK W/WO CONTRAST Clinical Indication: Reason: RT HAND NUMBNESS Comparison: CT head without contrast, earlier same day. CTA head and neck, 09/15/2017. Technique: Helical CT imaging from inferior to the aortic arch to the skull vertex is performed after 75 cc of Omnipaque [address] angiogram protocol. 3-D MIP reconstructions of the cervical carotid arteries and [place] are performed. PQRS Compliance Statement - Stenosis calculations for CT, MR and conventional angiography are based upon measurement of the distal ICA diameter in accordance with the NASCET methodology. Stenosis calculations for carotid ultrasound studies are derived from validated velocity criteria which are known to correlate with the NASCET methodology. Findings: Aortic arch branches are patent. Proximal right common carotid arteries are obscured due to beam hardening artifact. Otherwise, the common carotid arteries are patent. The common carotid arteries at the level of C6 are near midline. Carotid bifurcations are patent. The cervical internal carotid arteries are patent. The right is tortuous. The cervical vertebral arteries are patent. The right is small caliber. Basilar artery is patent. There is 3 mm segment of severe stenosis of the left P2 segment, increased from prior study, image 247. There is poststenotic dilation. Finding does not appear acute. The right posterior cerebral artery is patent. Distal internal carotid arteries are patent. Anterior circulation is intact. No evidence of intracranial aneurysm. No abnormal enhancement of the brain parenchyma is identified. There is no cervical adenopathy. Parotid, submandibular, and thyroid glands are symmetric. The upper lungs are clear. There is degenerative spondylosis of the cervical spine. The alignment is maintained. IMPRESSION: 1. No acute intracranial large vessel occlusion. 2. There is severe focal stenosis of the left P2 segment. 3. No significant stenosis of the cervical carotid or vertebral arteries. Electronically signed by: Jose Luis Collins MD (12/24/2020 12:34 PM) [id number] DICTATED and SIGNED BY: JOSE LUIS COLLINS MD DATE: 12/24/20 [id number] 0 [facility] [address] [place] [address] IMAGING REPORT Signed PATIENT: GIUSEPPE PINA ACCOUNT: [id number] : 1955 LOCATION: ER AGE: 65 SEX: M EXAM STATUS: REG ER ORD. PHYSICIAN: SUSAN DICKSON APRN REASON: RT HAND NUMBNESS PROCEDURE: CT HEAD WO CONTRAST PQRS Compliance Statement: One or more of the following individualized dose reduction techniques were utilized for this examination: 1. Automated exposure control 2. Adjustment of the mA and/or kV according to patient size 3. Use of iterative reconstruction technique CT HEAD WITHOUT CONTRAST History: Reason: RT HAND NUMBNESS / Spl. Instructions: / History: Comparison: Brain MR without contrast June 08, 2018. Technique: Axial images are obtained of the head from the skull base through the vertex without IV contrast. Findings: No mass-effect, midline shift, extra-axial fluid collection, hemorrhage, or obvious acute infarction is identified. Basilar cisterns are patent. The ventricles and sulci are prominent, consistent with age-related cerebral atrophy. There is mild periventricular white matter hypoattenuation. This is a nonspecific finding but is commonly due to chronic small vessel ischemic disease. Old left thalamic lacunar infarct. Bone windows demonstrate no acute calvarial abnormality. The visualized paranasal sinuses are clear. Mastoid air cells are well aerated. IMPRESSION: 1. No acute intracranial abnormality. 2. Mild generalized cerebral atrophy and mild periventricular white matter changes probably due to chronic small vessel ischemic disease. 3. Old left thalamic lacunar infarct. Electronically signed by: Jose Luis Collins MD (12/24/2020 12:25 PM) [id number] DICTATED and SIGNED BY: JOSE LUIS COLLINS MD DATE: 12/24/20 [id number] 0 [facility] [address] [place] [address] IMAGING REPORT Signed PATIENT: GIUSEPPE PINA ACCOUNT: [id number] : 1955 LOCATION: ER AGE: 65 SEX: M EXAM STATUS: PRE ER ORD. PHYSICIAN: SUSAN DICKSON APRN REASON: RIGHT HAND NUMBNESS PROCEDURE: PORTABLE CHEST 1V XR CHEST 1V Clinical Indication: Reason: RIGHT HAND NUMBNESS Comparison: AP chest 09/15/2017. Findings: The cardiomediastinal silhouette is normal. Lungs are clear. There is no pneumothorax. No pleural effusion is appreciated. No acute bone abnormality. IMPRESSION: No acute cardiopulmonary process. Electronically signed by: Jose Luis Collins MD (12/24/2020 11:04 AM) [id number] DICTATED and SIGNED BY: JOSE LUIS COLLINS MD DATE: 12/24/20 [id number] 0 Course & Med Decision Making: Course & Med Decision Making Pertinent Labs and Imaging studies reviewed. (See chart for details) See HPI. Alert and oriented x4. Ambulatory with a steady gait. Speaks in full clear sentences. With the NIH the only thing that is present is less than sensation in the right arm and upper leg. He states that that is normal for him but it is more so numb today than it usually is. He can look from left or right and is not seeing double and there is no vision changes. There is no vision loss. He can do finger-nose finger. Lungs are clear to auscultation all lobes. Answers all questions quickly and appropriately. Patient is not a TPA candidate because of last known well being the 12am. Patient is admitted to the hospital for observation. I will also consult Dr. Sage. He is admitted to the hospitalist. [] Dragon Disclaimer: Dragon Disclaimer: This electronic medical record was generated, in whole or in part, using a voice recognition dictation system. NIHSS Stroke Scale NIH Stroke Scale: NIH Stroke Scale Response (Comments) Value Level of Consciousness: 0 Alert/Responsive 0 LOC Questions: 0 Answers both correctly 0 LOC Commands: 0 Performs both tasks 0 Best Gaze: 0 Normal 0 Visual: 0 No visual loss 0 Facial Palsy: 0 Normal, symmetrical 0 Motor - Left Arm 0 No drift 0 Motor - Right Arm 0 No drift 0 Motor - Left Leg 0 No drift 0 Motor: Right Leg 0 No drift 0 Limb Ataxia: 0 Absent 0 Sensory: 1 Mid to moderate loss 1 Best Language: 0 Normal 0 Dysathria: 0 Normal 0 Extinction and Inattention: 0 Normal 0 Total 1 Departure Departure Impression: Primary Impression: Neurological symptoms Disposition: ADMITTED INPATIENT Admitting Physician: KELVIN Condition: STABLE Referrals: WINSTON CHILDS MD (PCP) SUSAN DICKSON APRN December 24, 2020 10:48
[2020-12-24] MEDS ORDERED: IV NORMAL SALINE 1000ML BAG 1,000 ML IV ONE (11:00)
--- NOTE | 2020-12-24 11:06 | RAD ---
XR CHEST 1V Clinical Indication: Reason: RIGHT HAND NUMBNESS Comparison: AP chest 09/15/2017. Findings: The cardiomediastinal silhouette is normal. Lungs are clear. There is no pneumothorax. No pleural eff usion is appreciated. No acute bone abnormality. IMPRESSION: No acute cardiopulmonary process. Electronically signed by: Jose Luis Collins MD (12/24/2020 11:04 AM) [id number]
[2020-12-24 11:45] LABS: BASO % 1 % (0-3); EOS # 0.1 x10^3/uL (0.0-0.7); EOS % 2 % (0-3); HEMATOCRIT 42.7 % (39.0-53.0); HEMOGLOBIN 14.7 g/dL (13.0-17.5); LYMPH # 1.6 x10^3/uL (1.0-4.8); LYMPH % 26 % (24-48); MEAN CORPUSCULAR HEMOGLOBIN 33 pg (25-35); MEAN CORPUSCULAR HGB CONC 34 g/dL (31-37); MEAN CORPUSCULAR VOLUME 97 fL (79-100); MONO # 0.9 x10^3/uL (0.0-1.1); MONO % 15 % (0-9); NEUT # 3.6 x10^3/uL (1.8-7.7); NEUT % 57 % (31-73); PLATELET COUNT 212 x10^3/uL (140-400); RED BLOOD COUNT 4.42 x10^6/uL (4.30-5.70); RED CELL DISTRIBUTION WIDTH 12.5 % (11.5-14.5); WHITE BLOOD COUNT 6.3 x10^3/uL (4.0-11.0)
[2020-12-24 11:53] LABS: CALCIUM 8.3 mg/dL (8.5-10.1); CREATININE 0.9 mg/dL (0.7-1.3); GFR 84.4; POTASSIUM 4.1 mmol/L (3.5-5.1)
[2020-12-24 11:59] LABS: ALBUMIN 3.8 g/dL (3.4-5.0); ALBUMIN/GLOBULIN RATIO 1.1 (1.0-1.7); MAGNESIUM 2.1 mg/dL (1.8-2.4); TOTAL BILIRUBIN 0.3 mg/dL (0.2-1.0); TOTAL PROTEIN 7.3 g/dL (6.4-8.2)
[2020-12-24 12:13] LABS: PROTHROMBIN TIME PATIENT 12.7 SEC (11.7-14.0)
[2020-12-24 12:21] LABS: BILIRUBIN,URINE NEGATIVE (NEG); CLARITY,URINE CLEAR; COLOR,URINE YELLOW; NITRITE,URINE NEGATIVE (NEG); PROTEIN,URINE 30 mg/dL (NEG-TRACE); UROBILINOGEN,URINE 0.2 mg/dL (0.2 mg/dL)
--- NOTE | 2020-12-24 12:27 | RAD ---
PQRS Compliance Statement: One or more of the following individualized dose reduction techniques were utilized for this examinat ion: 1. Automated exposure control 2. Adjustment of the mA and/or kV according to patient size 3. Use of iterative reconstruction technique CT HEAD WITHOUT CONTRAST History: Reason: RT HAND NUMBNESS / Spl. Instructions: / History: Comparison: Brain MR without contrast June 08, 2018. Technique: Axial images are obtained of the head from the skull base through the vertex without IV co ntrast. Findings: No mass-effect, midline shift, extra-axial fluid collection, hemorrhage, or obvious acute infarction is identified. Basilar cisterns are patent. The ventricles and sulci are prominent, consistent with age-related cerebral atrophy. There is mild p eriventricular white matter hypoattenuation. This is a nonspecific finding but is commonly due to ch ronic small vessel ischemic disease. Old left thalamic lacunar infarct. Bone windows demonstrate no acute calvarial abnormality. The visualized paranasal sinuses are clear. Mastoid air cells are well aerated. IMPRESSION: 1. No acute intracranial abnormality. 2. Mild generalized cerebral atrophy and mild periventricular white matter changes probably due to c hronic small vessel ischemic disease. 3. Old left thalamic lacunar infarct. Electronically signed by: Jose Luis Collins MD (12/24/2020 12:25 PM) [id number]
[2020-12-24] MEDS ORDERED: CONTRAST GIVEN. MC PRN (12:30)
[2020-12-24 12:32] LABS: BACTERIA,URINE 0 /HPF (0-FEW); RBC,URINE 0 /HPF (0-2); WBC,URINE OCC /HPF (0-4)
--- NOTE | 2020-12-24 12:37 | RAD ---
PQRS Compliance Statement: One or more of the following individualized dose reduction techniques were utilized for this examinat ion: 1. Automated exposure control 2. Adjustment of the mA and/or kV according to patient size 3. Use of iterative reconstruction technique CTA HEAD AND NECK W/WO CONTRAST Clinical Indication: Reason: RT HAND NUMBNESS Comparison: CT head without contrast, earlier same day. CTA head and neck, 09/15/2017. Technique: Helical CT imaging from inferior to the aortic arch to the skull vertex is performed after 75 cc of Omnipaque [address] angiogram protocol. 3-D MIP reconstructions of the cervi [place]enise carotid arteries and [place] are performed. PQRS Compliance Statement - Stenosis calculations for CT, MR and conventional angiography are based u imtiaz measurement of the distal ICA diameter in accordance with the NASCET methodology. Stenosis calcu lations for carotid ultrasound studies are derived from validated velocity criteria which are known t o correlate with the NASCET methodology. Findings: Aortic arch branches are patent. Proximal right common carotid arteries are obscured due to beam hard ening artifact. Otherwise, the common carotid arteries are patent. The common carotid arteries at the level of C6 are near midline. Carotid bifurcations are patent. The cervical internal carotid arterie s are patent. The right is tortuous. The cervical vertebral arteries are patent. The right is small caliber. Basilar artery is patent. The re is 3 mm segment of severe stenosis of the left P2 segment, increased from prior study, image 247. There is poststenotic dilation. Finding does not appear acute. The right posterior cerebral artery is patent. Distal internal carotid arteries are patent. Anterior circulation is intact. No evidence of intracran ial aneurysm. No abnormal enhancement of the brain parenchyma is identified. There is no cervical adenopathy. Parot id, submandibular, and thyroid glands are symmetric. The upper lungs are clear. There is degenerative spondylosis of the cervical spine. The alignment is maintained. IMPRESSION: 1. No acute intracranial large vessel occlusion. 2. There is severe focal stenosis of the left P2 segment. 3. No significant stenosis of the cervical carotid or vertebral arteries. Electronically signed by: Jose Luis Collins MD (12/24/2020 12:34 PM) [id number]
--- NOTE | 2020-12-24 12:52 | PDOC1 ---
History and Physical Date of Admission Date of Admission DATE: 12/24/20 TIME: 12:50 Identification/Chief Complaint Chief Complaint NEW ONSET RIGHT arm and right leg weakness, tingling , hx known CVA , NEW GAIT DISTURBANCE, DRAGS RIGHT FOOT History of Present Illness History of Present Illness 65 year old male who presents to ER with right arm and leg weakness / woke up at 6 AM with increased right arm, hand and upper leg numbness. known hx usual right hand tremors and right hand, arm and upper leg sensation loss due to his stroke in 2018. feels slightly foggy but he is not dizzy. notes a little bit of shortness of air but there is no chest pain. he denies syncope, abdominal pain, nausea, vomiting, diarrhea, fever, recent illness, dizziness, headache, vision change, pos focal right arm weakness. on Plavix and aspirin daily. Patient has a history of CVA, diabetes, hypertension, GERD, high cholesterol, 3 mm segment of severe stenosis of the left P2 segment, increased from prior study, image 247 on CTA HEAD Mild generalized cerebral atrophy and mild periventricular white matter changes probably due to chronic small vessel ischemic disease. Old left thalamic lacunar infarct. ON ct September 2017 presented with a left thalamic stroke. did have alteplase then// NEUROLOGY PLANS MRI of the brain tomorrow / Echocardiogram WILL ADMIT neurochecks q 4 hrs dvt prophylaxis cvc bed ASA STATIN home meds PT/OT/ST NPO accuchecks Past Medical History Past Medical History Past Medical History Past Medical History: CVA, Diabetes-Type II, High Cholesterol, Hypertension, Kidney Stone, TIA, Other Additional Past Medical Histor: Ulcerative colitis. Past Surgical History: Other Additional Past Surgical Histo: Hernia,L)hand surgery. Smoking Status: Never Smoker Alcohol Use: Occasionally Drug Use: None HX CVA FHX HTN Cardiovascular: HTN, Hyperlipidemia, Other CENTRAL NERVOUS SYSTEM: CVA, TIA GI: GI bleed, Inflam bowel disease Musculoskeletal: Osteoarthritis Renal/: Other Endocrine: Diabetes Past Surgical History Past Surgical History: Hernia Repair, Other Family History Family History: No Significant, High Cholestrol, Hypertension Social History Smoke: No ALCOHOL: rare Drugs: None Current Problem List Problem List Problems Medical Problems: (1) Neurological symptoms Status: Acute Current Medications Current Medications Current Medications Sodium Chloride 1,000 ml @ 1,000 mls/hr 1X ONCE IV Last administered on 12/24/20at 12:36; Start 12/24/20 at 11:00; Stop 12/24/20 at 11:59; Status DC Iohexol (Omnipaque 300 Mg/ml) 75 ml 1X ONCE IV Last administered on 12/24/20at 12:31; Start 12/24/20 at 13:00; Stop 12/24/20 at 13:01 Info (CONTRAST GIVEN -- Rx MONITORING) 1 each PRN DAILY PRN MC SEE COMMENTS; Start 12/24/20 at 12:30; Stop 12/26/20 at 12:29 Active Scripts Active Clopidogrel (Clopidogrel Bisulfate) 75 Mg Tablet 75 Mg PO DAILYWBKFT 30 Days Reported Atorvastatin Calcium 80 Mg Tablet 80 Mg PO HS Metformin Hcl 500 Mg Tablet 500 Mg PO BIDWMEALS Sulfasalazine 500 Mg Tablet 500 Mg PO BID Omeprazole 20 Mg Tablet.dr 1 Tab PO DAILY Metoprolol Succinate 50 Mg Tab.er.24h 100 Mg PO Losartan Potassium 50 Mg Tablet 50 Mg PO DAILY Folic Acid 0.8 Mg Capsule 0.8 Mg PO Flonase Allergy Relief (Fluticasone Propionate) 9.9 Ml [place].susp 2 Sprays NS DAILY Fish Oil 1,000 Mg Capsule ([place]-3 Fatty Acids/Fish Oil) 1 Each Capsule 1 Each PO BID Daily Meg (Multivitamin) 1 Each Tablet 1 Each PO Aspirin 81 Mg Tab.chew 1 Tab PO DAILY Zyrtec (Cetirizine Hcl) 10 Mg Capsule 10 Mg PO Allergies Allergies: Coded Allergies: No Known Drug Allergies (Unverified , 07/30/17) ROS General: No: Chills, Night Sweats, Fatigue, Malaise, Appetite, Other PSYCHOLOGICAL ROS: No: Anxiety, Behavioral Disorder, Concentration difficultie, Decreased libido, Depression, Disorientation, Hallucinations, Hostility, Irritablity, Memory difficulties, Mood Swings, Obsessive thoughts, Physical abuse, Sexual abuse, Sleep disturbances, Suicidal ideation, Other Eyes: No Blurry vision, No Decreased vision, No Double vision, No Dry eyes, No Excessive tearing, No Eye Pain, No Itchy Eyes, No Loss of vision, No Photophobia, No Scotomata, No Uses contacts, No Uses glasses, No Other HEENT: No: Heacaches, Visual Changes, Hearing change, Nasal congestion, Nasal discharge, Oral lesions, Sinus pain, Sore Throat, Epistaxis, Sneezing, Snoring, Tinnitus, Vertigo, Vocal changes, Other ALLERGY AND IMMUNOLOGY: No: Hives, Insect Bite Sensitivity, Itchy/Watery Eyes, Nasal Congestion, Post Nasal Drip, Seasonal Allergies, Other Hematological and Lymphatic: No: Bleeding Problems, Blood Clots, Blood Transfusions, Brusing, Night Sweats, Pallor, Swollen Lymph Nodes, Other ENDOCRINE: No: Breast Changes, Galactorrhea, Hair Pattern Changes, Hot Flashes, Malaise/lethargy, Mood Swings, Palpitations, Polydipsia/polyuria, Skin Changes, Temperature Intolerance, Unexpected Weight Changes, Other Breast: No New/Changing Breast Lumps, No Nipple changes, No Nipple discharge, No Other Respiratory: No: Cough, Hemoptysis, Orthopnea, Pleuritic Pain, Shortness of breath, SOB with excertion, Sputum Changes, Stridor, Tachypnea, Wheezing, Other Cardiovascular: No Chest Pain, No Palpitations, No Orthopnea, No Paroxysmal Noc. Dyspnea, No Edema, No Lt Headedness, No Other Gastrointestinal: No Nausea, No Vomiting, No Abdominal Pain, No Diarrhea, No Constipation, No Melena, No Hematochezia, No Other Genitourinary: No Dysuria, No Frequency, No Incontinence, No Hematuria, No Retention, No Discharge, No Urgency, No Pain, No Flank Pain, No Other, No , No , No , No , No , No , No Musculoskeletal: Yes Gait Disturbance, Yes Joint Stiffness, Yes Muscular Weakness, Yes Other (DRAGS RIGHT FOOT) Neurological: Yes Gait Disturbance, Yes Impaired Coord/balance, Yes Numbness/Tingling; No Behavorial Changes, No Bowel/Bladder ControlChng, No Confusion, No Dizziness, No Headaches, No Memory Loss, No Seizures, No Speech Problems, No Tremors, No Visual Changes, No Weakness, No Other Skin: No Dry Skin, No Eczema, No Hair Changes, No Lumps, No Mole Changes, No Mottling, No Nail Changes, No Pruritus, No Rash, No Skin Lesion Changes, No Other, No Acne Physical Exam Physical Exam onstitutional: Well developed, well nourished, no acute distress, non-toxic appearance. [] HENT: Normocephalic, atraumatic, bilateral external ears normal, oropharynx moist, no oral exudates, nose normal. [] Eyes: PERRLA, EOMI, conjunctiva normal, no discharge. [] tongue midline , muscles of mastication symetric Neck: Normal range of motion, no tenderness, supple, no stridor. [] Cardiovascular:Heart rate regular rhythm, no murmur [] Lungs & Thorax: Bilateral breath sounds clear to auscultation [] Abdomen: Bowel sounds normal, soft, no tenderness, no masses, no pulsatile masses. [] Skin: Warm, dry, no erythema, no rash. [] Back: No tenderness, no CVA tenderness. [] Extremities: No tenderness, no cyanosis, no clubbing, ROM intact, no edema. [] Neurologic: Alert and oriented X 3, WEAK RIGHT HAND REVENUE AGENT motor function, left hand bindery chief strong. [] Psychologic: Affect normal, judgment normal, mood normal. [] General: Alert, Oriented X3, Cooperative, No acute distress HEENT: EOMI, Mucous membr. moist/pink Lungs: Clear to auscultation, Normal air movement Heart: RRR Breasts: Not examined Abdomen: Normal bowel sounds, Soft Rectal Exam: not examined, deferred Extremities: No cyanosis, No edema, No tenderness/swelling Skin: No rashes, No significant lesion Neuro: Cranial nerves 3-12 NL Psych/Mental Status: Mental status NL, Mood NL Vitals Vitals Vital Signs Date Time Temp Pulse Resp B/P (MAP) Pulse Ox O2 Delivery O2 Flow Rate FiO2 12/24/20 12:11 66 164/78 (106) Room Air 12/24/20 11:51 96 12/24/20 10:15 98.1 18 98.1 Labs Labs Laboratory Tests Test 12/24/20 09:55 12/24/20 11:30 12/24/20 12:05 Glucose (Fingerstick) 194 mg/dL (70-99) White Blood Count 6.3 x10^3/uL (4.0-11.0) Red Blood Count 4.42 x10^6/uL (4.30-5.70) Hemoglobin 14.7 g/dL (13.0-17.5) Hematocrit 42.7 % (39.0-53.0) Mean Corpuscular Volume 97 fL (79-100) Mean Corpuscular Hemoglobin 33 pg (25-35) Mean Corpuscular Hemoglobin Concent 34 g/dL (31-37) Red Cell Distribution Width 12.5 % (11.5-14.5) Platelet Count 212 x10^3/uL (140-400) Neutrophils (%) (Auto) 57 % (31-73) Lymphocytes (%) (Auto) 26 % (24-48) Monocytes (%) (Auto) 15 % (0-9) Eosinophils (%) (Auto) 2 % (0-3) Basophils (%) (Auto) 1 % (0-3) Neutrophils # (Auto) 3.6 x10^3/uL (1.8-7.7) Lymphocytes # (Auto) 1.6 x10^3/uL (1.0-4.8) Monocytes # (Auto) 0.9 x10^3/uL (0.0-1.1) Eosinophils # (Auto) 0.1 x10^3/uL (0.0-0.7) Basophils # (Auto) 0.0 x10^3/uL (0.0-0.2) Prothrombin Time 12.7 SEC (11.7-14.0) Prothromb Time International Ratio 1.0 (0.8-1.1) Sodium Level 146 mmol/L (136-145) Potassium Level 4.1 mmol/L (3.5-5.1) Chloride Level 106 mmol/L (98-107) Carbon Dioxide Level 28 mmol/L (21-32) Anion Gap 12 (6-14) Blood Urea Nitrogen 8 mg/dL (8-26) Creatinine 0.9 mg/dL (0.7-1.3) Estimated GFR (Cockcroft-Gault) 84.4 BUN/Creatinine Ratio 9 (6-20) Glucose Level 118 mg/dL (70-99) Calcium Level 8.3 mg/dL (8.5-10.1) Magnesium Level 2.1 mg/dL (1.8-2.4) Total Bilirubin 0.3 mg/dL (0.2-1.0) Aspartate Amino Transf (AST/SGOT) 16 U/L (15-37) Alanine Aminotransferase (ALT/SGPT) 28 U/L (16-63) Alkaline Phosphatase 79 U/L (46-116) Troponin I Quantitative < 0.017 ng/mL (0.000-0.055) KF-Izm-S-Type Natriuretic Peptide 57 pg/mL (0-124) Total Protein 7.3 g/dL (6.4-8.2) Albumin 3.8 g/dL (3.4-5.0) Albumin/Globulin Ratio 1.1 (1.0-1.7) Urine Collection Type U cath Urine Color Yellow Urine Clarity Clear Urine pH 6.0 (<5.0-8.0) Urine Specific [place] >=1.030 (1.000-1.030) Urine Protein 30 mg/dL (NEG-TRACE) Urine Glucose (UA) >=1000 mg/dL (NEG) Urine Ketones (Stick) Negative mg/dL (NEG) Urine Blood Negative (NEG) Urine Nitrite Negative (NEG) Urine Bilirubin Negative (NEG) Urine Urobilinogen Dipstick 0.2 mg/dL (0.2 mg/dL) Urine Leukocyte Esterase Negative (NEG) Urine RBC 0 /HPF (0-2) Urine WBC Occ /HPF (0-4) Urine Squamous Epithelial Cells Occ /LPF Urine Bacteria 0 /HPF (0-FEW) Laboratory Tests Test 12/24/20 09:55 12/24/20 11:30 12/24/20 12:05 Glucose (Fingerstick) 194 mg/dL (70-99) White Blood Count 6.3 x10^3/uL (4.0-11.0) Red Blood Count 4.42 x10^6/uL (4.30-5.70) Hemoglobin 14.7 g/dL (13.0-17.5) Hematocrit 42.7 % (39.0-53.0) Mean Corpuscular Volume 97 fL (79-100) Mean Corpuscular Hemoglobin 33 pg (25-35) Mean Corpuscular Hemoglobin Concent 34 g/dL (31-37) Red Cell Distribution Width 12.5 % (11.5-14.5) Platelet Count 212 x10^3/uL (140-400) Neutrophils (%) (Auto) 57 % (31-73) Lymphocytes (%) (Auto) 26 % (24-48) Monocytes (%) (Auto) 15 % (0-9) Eosinophils (%) (Auto) 2 % (0-3) Basophils (%) (Auto) 1 % (0-3) Neutrophils # (Auto) 3.6 x10^3/uL (1.8-7.7) Lymphocytes # (Auto) 1.6 x10^3/uL (1.0-4.8) Monocytes # (Auto) 0.9 x10^3/uL (0.0-1.1) Eosinophils # (Auto) 0.1 x10^3/uL (0.0-0.7) Basophils # (Auto) 0.0 x10^3/uL (0.0-0.2) Prothrombin Time 12.7 SEC (11.7-14.0) Prothromb Time International Ratio 1.0 (0.8-1.1) Sodium Level 146 mmol/L (136-145) Potassium Level 4.1 mmol/L (3.5-5.1) Chloride Level 106 mmol/L (98-107) Carbon Dioxide Level 28 mmol/L (21-32) Anion Gap 12 (6-14) Blood Urea Nitrogen 8 mg/dL (8-26) Creatinine 0.9 mg/dL (0.7-1.3) Estimated GFR (Cockcroft-Gault) 84.4 BUN/Creatinine Ratio 9 (6-20) Glucose Level 118 mg/dL (70-99) Calcium Level 8.3 mg/dL (8.5-10.1) Magnesium Level 2.1 mg/dL (1.8-2.4) Total Bilirubin 0.3 mg/dL (0.2-1.0) Aspartate Amino Transf (AST/SGOT) 16 U/L (15-37) Alanine Aminotransferase (ALT/SGPT) 28 U/L (16-63) Alkaline Phosphatase 79 U/L (46-116) Troponin I Quantitative < 0.017 ng/mL (0.000-0.055) GP-Toi-F-Type Natriuretic Peptide 57 pg/mL (0-124) Total Protein 7.3 g/dL (6.4-8.2) Albumin 3.8 g/dL (3.4-5.0) Albumin/Globulin Ratio 1.1 (1.0-1.7) Urine Collection Type U cath Urine Color Yellow Urine Clarity Clear Urine pH 6.0 (<5.0-8.0) Urine Specific [place] >=1.030 (1.000-1.030) Urine Protein 30 mg/dL (NEG-TRACE) Urine Glucose (UA) >=1000 mg/dL (NEG) Urine Ketones (Stick) Negative mg/dL (NEG) Urine Blood Negative (NEG) Urine Nitrite Negative (NEG) Urine Bilirubin Negative (NEG) Urine Urobilinogen Dipstick 0.2 mg/dL (0.2 mg/dL) Urine Leukocyte Esterase Negative (NEG) Urine RBC 0 /HPF (0-2) Urine WBC Occ /HPF (0-4) Urine Squamous Epithelial Cells Occ /LPF Urine Bacteria 0 /HPF (0-FEW) Images Images PATIENT: GIUSEPPE PINA ACCOUNT: [id number] : 1955 LOCATION: [address] [place] [address] AGE: 63 SEX: M EXAM STATUS: ADM IN ORD. PHYSICIAN: SERGIO OLIVER MD REASON: New CVA tech here. nc PROCEDURE: BRAIN W/O CONTRAST MRI of the brain without contrast dated 06/08/2018. Comparison made to 09/16/2017. Clinical indication: Worsening right-sided weakness. Possible CVA. TECHNIQUE: Routine multiplanar multisequence MR imaging performed. No contrast administered. FINDINGS: Ventricles and sulci are mildly prominent for age. No midline shift or mass effect. There is mild patchy hyperintense FLAIR signal abnormality in the deep/subcortical periventricular white matter and left thalamus with evidence of prior left ophthalmic lacunar infarct. No hemorrhage or extra-axial collection. Posterior fossa and brainstem unremarkable. No evidence of acute diffusion restriction. The major intracranial flow-voids are present. Postcontrast imaging was not performed. Minimal mucosal thickening of the ethmoid air cells. The visualized paranasal sinuses and mastoid air cells are otherwise clear. No apparent calvarial abnormality. IMPRESSION: 1. No evidence of acute intracranial hemorrhage, mass or acute infarct. 2. Mild chronic small vessel ischemic changes with remote lacunar infarct of the left thalamus. 3. Mild atrophy for age. Electronically signed by: Guilherme Shipman MD (06/08/2018 12:13 PM) [facility] [place]CTATED and SIGNED BY: GUILHERME SHIPMAN MD DATE: 06/08/18 1210 PQRS Compliance Statement: One or more of the following individualized dose reduction techniques were utilized for this examination: 1. Automated exposure control 2. Adjustment of the mA and/or kV according to patient size 3. Use of iterative reconstruction technique CT HEAD WITHOUT CONTRAST History: Reason: RT HAND NUMBNESS / Spl. Instructions: / History: Comparison: Brain MR without contrast June 08, 2018. Technique: Axial images are obtained of the head from the skull base through the vertex without IV contrast. Findings: No mass-effect, midline shift, extra-axial fluid collection, hemorrhage, or obvious acute infarction is identified. Basilar cisterns are patent. The ventricles and sulci are prominent, consistent with age-related cerebral atrophy. There is mild periventricular white matter hypoattenuation. This is a nonspecific finding but is commonly due to chronic small vessel ischemic disease. Old left thalamic lacunar infarct. Bone windows demonstrate no acute calvarial abnormality. The visualized paranasal sinuses are clear. Mastoid air cells are well aerated. IMPRESSION: 1. No acute intracranial abnormality. 2. Mild generalized cerebral atrophy and mild periventricular white matter changes probably due to chronic small vessel ischemic disease. 3. Old left thalamic lacunar infarct. Electronically signed by: Jose Luis Collins MD (12/24/2020 12:25 PM) [id number] DICTATED and SIGNED BY: JOSE LUIS COLLINS MD DATE: 12/24/20 [id number] PATIENT: GIUSEPPE PINA ACCOUNT: [id number] : 1955 LOCATION: ER AGE: 65 SEX: M EXAM STATUS: REG ER ORD. PHYSICIAN: SUSAN DICKSON APRN REASON: RT HAND NUMBNESS PROCEDURE: CT ANGIOGRAPHY HEAD AND NECK PQRS Compliance Statement: One or more of the following individualized dose reduction techniques were utilized for this examination: 1. Automated exposure control 2. Adjustment of the mA and/or kV according to patient size 3. Use of iterative reconstruction technique CTA HEAD AND NECK W/WO CONTRAST Clinical Indication: Reason: RT HAND NUMBNESS Comparison: CT head without contrast, earlier same day. CTA head and neck, 09/15/2017. Technique: Helical CT imaging from inferior to the aortic arch to the skull vertex is performed after 75 cc of Omnipaque [address] angiogram protocol. 3-D MIP reconstructions of the cervical carotid arteries and [place] are performed. PQRS Compliance Statement - Stenosis calculations for CT, MR and conventional angiography are based upon measurement of the distal ICA diameter in accordance with the NASCET methodology. Stenosis calculations for carotid ultrasound studies are derived from validated velocity criteria which are known to correlate with the NASCET methodology. Findings: Aortic arch branches are patent. Proximal right common carotid arteries are obscured due to beam hardening artifact. Otherwise, the common carotid arteries are patent. The common carotid arteries at the level of C6 are near midline. Carotid bifurcations are patent. The cervical internal carotid arteries are patent. The right is tortuous. The cervical vertebral arteries are patent. The right is small caliber. Basilar artery is patent. There is 3 mm segment of severe stenosis of the left P2 segment, increased from prior study, image 247. There is poststenotic dilation. Finding does not appear acute. The right posterior cerebral artery is patent. Distal internal carotid arteries are patent. Anterior circulation is intact. No evidence of intracranial aneurysm. No abnormal enhancement of the brain parenchyma is identified. There is no cervical adenopathy. Parotid, submandibular, and thyroid glands are symmetric. The upper lungs are clear. There is degenerative spondylosis of the cervical spine. The alignment is maintained. IMPRESSION: 1. No acute intracranial large vessel occlusion. 2. There is severe focal stenosis of the left P2 segment. 3. No significant stenosis of the cervical carotid or vertebral arteries. Electronically signed by: Jose Luis Collins MD (12/24/2020 12:34 PM) [id number] DICTATED and SIGNED BY: JOSE LUIS COLLINS MD DATE: 12/24/20 [id number] VTE Prophylaxis Ordered VTE Prophylaxis Devices: Yes VTE Pharmacological Prophylaxi: Yes Assessment/Plan Assessment/Plan IMPRESSION: Acute strike like symptoms No acute intracranial abnormality. ct HEAD 12-24 3 mm segment of severe stenosis of the left P2 segment, increased from prior study, image 247 on CTA HEAD Mild generalized cerebral atrophy and mild periventricular white matter changes probably due to chronic small vessel ischemic disease. Old left thalamic lacunar infarct. morbid obesity hx diabetes hx ulcerative colitis PLAN=== ADMIT Consider MRI HEAD Neurology consult neurochecks q 4 hrs dvt prophylaxis cvc bed ASA STATIN home meds PT/OT/ST NPO accuchecks NEUROLOGY PLANS MRI of the brain tomorrow / Echocardiogram 75 min pt exam, chart review, > 50% of time spent with exam, chart review, pt care coordination Justifications for Admission Other Justification ANTONIO QUINTANILLA MD December 24, 2020 12:52
[2020-12-24] MEDS ORDERED: IOHEXOL 300 MG/ML 100ML VIAL. IV ONE (13:00)
[2020-12-24] MEDS ORDERED: ALBUTEROL SULFATE 2.5 MG/3 ML NEBU. NEB PRN (14:15)
[2020-12-24] MEDS ORDERED: MAG HYDROX/ALUMINUM HYD/SIMETH 30 ML ORAL.SUSP PO PRN (14:15)
[2020-12-24] MEDS ORDERED: 0.9 % SODIUM CHLORIDE 10 ML DISP.SYRIN. IV PRN (14:15)
[2020-12-24] MEDS ORDERED: LORazepam 0.5 MG TABLET PO PRN (14:15)
[2020-12-24] MEDS ORDERED: guaiFENesin ORAL 200 MG/10 ML LIQUID. PO PRN (14:15)
[2020-12-24] MEDS ORDERED: SODIUM PHOSPHATES 19/7GM 133 ML ENEMA. PR PRN (14:15)
[2020-12-24] MEDS ORDERED: ONDANSETRON PF 4 MG/2 ML VIAL. IV PRN (14:15)
[2020-12-24] MEDS ORDERED: DOCUSATE SODIUM 100 MG CAPSULE. PO PRN (14:15)
[2020-12-24] MEDS ORDERED: ACETAMINOPHEN 650 MG SUPP.RECT. PR PRN (14:15)
[2020-12-24] MEDS ORDERED: ACETAMINOPHEN 325 MG TABLET. PO PRN (14:15)
[2020-12-24] MEDS ORDERED: DEXTROSE 50% 25 GM / 50ML DISP.SYRIN. IV PRN (14:30)
--- NOTE | 2020-12-24 14:44 | PDOC2 ---
NEUROLOGY CONSULT Date of Service DOS: DATE: 12/24/20 TIME: 14:33 Reason for Consult Reason for Consult: Stroke symptoms Referring Physician Referring Physician: Dr. Saenz PCP: Dr. Arteaga Source Source: Chart review, Patient History of Present Illness History of Present Illness The patient is a 65-year-old right-handed male who went to bed last night and woke up this morning with increased right-sided numbness. I saw him in September 2017 when he presented with a left thalamic stroke. He did receive alteplase at that time. He was left with persistent numbness and tremor on the right side. He came back in in October and again in June 2018 with increased stroke symptoms and work-up was negative for a new stroke. The patient had a cerebral hemorrhage by his description about 26 years ago and also had recurrent right sided transient ischemic attack symptoms over the years, the last of which was 3 years ago. Etiology was never found. He describes undergoing an arteriogram in [facility] 26 years ago. 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, 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, 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 Current Medications Current Medications Current Medications Sodium Chloride 1,000 ml @ 1,000 mls/hr 1X ONCE IV Last administered on at 12:36; Start 12/24/20 at 11:00; Stop 12/24/20 at 11:59; Status DC Iohexol (Omnipaque 300 Mg/ml) 75 ml 1X ONCE IV Last administered on 12/24/20at 12:31; Start 12/24/20 at 13:00; Stop 12/24/20 at 13:01; Status DC Info (CONTRAST GIVEN -- Rx MONITORING) 1 each PRN DAILY PRN MC SEE COMMENTS; Start 12/24/20 at 12:30; Stop 12/26/20 at 12:29 Aspirin (Aspirin Chewable) 81 mg DAILY PO ; Start 12/24/20 at 15:00 Clopidogrel Bisulfate (Plavix) 75 mg DAILYWBKFT PO ; Start 12/24/20 at 15:00 Losartan Potassium (Cozaar) 50 mg DAILY PO ; Start 12/24/20 at 15:00 Metformin HCl (Glucophage) 500 mg BIDWMEALS PO ; Start 12/24/20 at 17:00; St atus UNV Metoprolol Succinate (Toprol Xl) 100 mg DAILY08 PO ; Start 12/24/20 at 15:00 Fish Oil (Fish Oil) 1,000 mg BID PO ; Start 12/24/20 at 21:00 Atorvastatin Calcium (Lipitor) 80 mg QHS PO ; Start 12/24/20 at 21:00 Fluticasone Propionate (Flonase) 2 spray DAILY NS ; Start 12/24/20 at 15:00 Pantoprazole Sodium (Protonix) 40 mg DAILYAC PO ; Start 12/24/20 at 16:30 Multivitamins (Thera M Plus) 1 tab DAILY PO ; Start 12/24/20 at 15:00 Sodium Chloride (Normal Saline Flush) 3 ml QSHIFT PRN IV AFTER MEDS AND BLOOD DRAWS; Start 12/24/20 at 14:15 Sodium Chloride 1,000 ml @ 100 mls/hr Q10H IV ; Start 12/24/20 at 14:15; Status UNV Ondansetron HCl (Zofran) 4 mg PRN Q4HRS PRN IV NAUSEA/VOMITING; Start 12/24/20 at 14:15 Acetaminophen (Tylenol) 650 mg PRN Q4HRS PRN PO TEMP OVER 100.4F OR MILD PAIN; Start 12/24/20 at 14:15 Acetaminophen (Tylenol Supp) 650 mg PRN Q4HRS PRN SD TEMP OVER 100.4F OR MILD PAIN; Start 12/24/20 at 14:15 Al Hydroxide/Mg Hydroxide (Mylanta Plus Xs) 30 ml PRN DAILY PRN PO HEARTBURN / GAS; Start 12/24/20 at 14:15 Sodium Monofluorophosphate (Fleet Adult) 133 ml PRN DAILY PRN SD CONSTIPATION; Start 12/24/20 at 14:15 Docusate Sodium (Colace) 100 mg PRN BID PRN PO HARD STOOLS; Start 12/24/20 at 14:15 Albuterol Sulfate (Ventolin Neb Soln) 2.5 mg PRN Q4HRS PRN NEB SHORTNESS OF BREATH; Start 12/24/20 at 14:15 Guaifenesin (Robitussin) 200 mg PRN Q4HRS PRN PO COUGH; Start 12/24/20 at 14:15 Lorazepam (Ativan) 0.5 mg PRN Q4HRS PRN PO ANXIETY / AGITATION; Start 12/24/20 at 14:15 Enoxaparin Sodium (Lovenox 40mg Syringe) 40 mg Q24H SQ ; Start 12/24/20 at 14:15; Status UNV Folic Acid (Folic Acid) 1 mg DAILY PO ; Start 12/25/20 at 09:00; Status UNV Active Scripts Active Clopidogrel (Clopidogrel Bisulfate) 75 Mg Tablet 75 Mg PO DAILYWBKFT 30 Days Reported Atorvastatin Calcium 80 Mg Tablet 80 Mg PO HS Metformin Hcl 500 Mg Tablet 500 Mg PO BIDWMEALS Sulfasalazine 500 Mg Tablet 500 Mg PO BID Omeprazole 20 Mg Tablet.dr 1 Tab PO DAILY Metoprolol Succinate 50 Mg Tab.er.24h 100 Mg PO Losartan Potassium 50 Mg Tablet 50 Mg PO DAILY Folic Acid 0.8 Mg Capsule 0.8 Mg PO Flonase Allergy Relief (Fluticasone Propionate) 9.9 Ml [place].susp 2 Sprays NS DAILY Fish Oil 1,000 Mg Capsule ([place]-3 Fatty Acids/Fish Oil) 1 Each Capsule 1 Each PO BID Daily Meg (Multivitamin) 1 Each Tablet 1 Each PO Aspirin 81 Mg Tab.chew 1 Tab PO DAILY Zyrtec (Cetirizine Hcl) 10 Mg Capsule 10 Mg PO Allergies Allergies: Coded Allergies: No Known Drug Allergies (Unverified , 07/30/17) ROS Review of System Negative for fever, chills, weight loss, shortness of breath, chest pain, indigestion, hematochezia, melena, and dysuria. Full 14-point review of systems is negative. Physical Exam Physical Examination General: Well-developed, well-nourished white male in no acute distress HEENT: Normocephalic andatraumatic. Temporal arteriespulsatile and nontender. Neck: Supple without bruit, no meningismus Musculoskeletal: Stability:see neurologic. Gait exam:see neurologic. Tone:see neurologic.Strength:see neurologic. Neurological: Mental Status:intact, orientation, memory, attention span/concentration, language, fund of knowledge normal. Cranial Nerves:Pupils equal and reactive to light, extraocular movements areintact, visual damian are full to confrontation. Facial sensation is normal. There is no facial asymmetry. Vestibulo-ocular reflex is intact. Palate elevates and tongue protrudes in midline. All other cranial related problems are negative except as mentioned before.Reflexes:2+ and symmetric with flexor plantar responses. Motor:5/5 strength with normal tone and bulk. Coordination:Finger-nose finger and kffy-[id number]-[id number] testing are normal. Rapid alternating movements and fine finger movements are intact. Gait:Unsteady. Sensory:Stocking loss, also right hemihy pnesthesia face, arm, leg Vitals VITALS Vital Signs Date Time Temp Pulse Resp B/P (MAP) Pulse Ox O2 Delivery O2 Flow Rate FiO2 12/24/20 12:11 66 164/78 (106) Room Air 12/24/20 11:51 96 12/24/20 10:15 98.1 18 98.1 Labs Labs Laboratory Tests Test 12/24/20 09:55 12/24/20 11:30 12/24/20 12:05 Glucose (Fingerstick) 194 mg/dL (70-99) White Blood Count 6.3 x10^3/uL (4.0-11.0) Red Blood Count 4.42 x10^6/uL (4.30-5.70) Hemoglobin 14.7 g/dL (13.0-17.5) Hematocrit 42.7 % (39.0-53.0) Mean Corpuscular Volume 97 fL (79-100) Mean Corpuscular Hemoglobin 33 pg (25-35) Mean Corpuscular Hemoglobin Concent 34 g/dL (31-37) Red Cell Distribution Width 12.5 % (11.5-14.5) Platelet Count 212 x10^3/uL (140-400) Neutrophils (%) (Auto) 57 % (31-73) Lymphocytes (%) (Auto) 26 % (24-48) Monocytes (%) (Auto) 15 % (0-9) Eosinophils (%) (Auto) 2 % (0-3) Basophils (%) (Auto) 1 % (0-3) Neutrophils # (Auto) 3.6 x10^3/uL (1.8-7.7) Lymphocytes # (Auto) 1.6 x10^3/uL (1.0-4.8) Monocytes # (Auto) 0.9 x10^3/uL (0.0-1.1) Eosinophils # (Auto) 0.1 x10^3/uL (0.0-0.7) Basophils # (Auto) 0.0 x10^3/uL (0.0-0.2) Prothrombin Time 12.7 SEC (11.7-14.0) Prothromb Time International Ratio 1.0 (0.8-1.1) Sodium Level 146 mmol/L (136-145) Potassium Level 4.1 mmol/L (3.5-5.1) Chloride Level 106 mmol/L (98-107) Carbon Dioxide Level 28 mmol/L (21-32) Anion Gap 12 (6-14) Blood Urea Nitrogen 8 mg/dL (8-26) Creatinine 0.9 mg/dL (0.7-1.3) Estimated GFR (Cockcroft-Gault) 84.4 BUN/Creatinine Ratio 9 (6-20) Glucose Level 118 mg/dL (70-99) Calcium Level 8.3 mg/dL (8.5-10.1) Magnesium Level 2.1 mg/dL (1.8-2.4) Total Bilirubin 0.3 mg/dL (0.2-1.0) Aspartate Amino Transf (AST/SGOT) 16 U/L (15-37) Alanine Aminotransferase (ALT/SGPT) 28 U/L (16-63) Alkaline Phosphatase 79 U/L (46-116) Troponin I Quantitative < 0.017 ng/mL (0.000-0.055) SH-Yve-V-Type Natriuretic Peptide 57 pg/mL (0-124) Total Protein 7.3 g/dL (6.4-8.2) Albumin 3.8 g/dL (3.4-5.0) Albumin/Globulin Ratio 1.1 (1.0-1.7) Urine Collection Type U cath Urine Color Yellow Urine Clarity Clear Urine pH 6.0 (<5.0-8.0) Urine Specific [place] >=1.030 (1.000-1.030) Urine Protein 30 mg/dL (NEG-TRACE) Urine Glucose (UA) >=1000 mg/dL (NEG) Urine Ketones (Stick) Negative mg/dL (NEG) Urine Blood Negative (NEG) Urine Nitrite Negative (NEG) Urine Bilirubin Negative (NEG) Urine Urobilinogen Dipstick 0.2 mg/dL (0.2 mg/dL) Urine Leukocyte Esterase Negative (NEG) Urine RBC 0 /HPF (0-2) Urine WBC Occ /HPF (0-4) Urine Squamous Epithelial Cells Occ /LPF Urine Bacteria 0 /HPF (0-FEW) Laboratory Tests Test 12/24/20 09:55 12/24/20 11:30 12/24/20 12:05 Glucose (Fingerstick) 194 mg/dL (70-99) White Blood Count 6.3 x10^3/uL (4.0-11.0) Red Blood Count 4.42 x10^6/uL (4.30-5.70) Hemoglobin 14.7 g/dL (13.0-17.5) Hematocrit 42.7 % (39.0-53.0) Mean Corpuscular Volume 97 fL (79-100) Mean Corpuscular Hemoglobin 33 pg (25-35) Mean Corpuscular Hemoglobin Concent 34 g/dL (31-37) Red Cell Distribution Width 12.5 % (11.5-14.5) Platelet Count 212 x10^3/uL (140-400) Neutrophils (%) (Auto) 57 % (31-73) Lymphocytes (%) (Auto) 26 % (24-48) Monocytes (%) (Auto) 15 % (0-9) Eosinophils (%) (Auto) 2 % (0-3) Basophils (%) (Auto) 1 % (0-3) Neutrophils # (Auto) 3.6 x10^3/uL (1.8-7.7) Lymphocytes # (Auto) 1.6 x10^3/uL (1.0-4.8) Monocytes # (Auto) 0.9 x10^3/uL (0.0-1.1) Eosinophils # (Auto) 0.1 x10^3/uL (0.0-0.7) Basophils # (Auto) 0.0 x10^3/uL (0.0-0.2) Prothrombin Time 12.7 SEC (11.7-14.0) Prothromb Time International Ratio 1.0 (0.8-1.1) Sodium Level 146 mmol/L (136-145) Potassium Level 4.1 mmol/L (3.5-5.1) Chloride Level 106 mmol/L (98-107) Carbon Dioxide Level 28 mmol/L (21-32) Anion Gap 12 (6-14) Blood Urea Nitrogen 8 mg/dL (8-26) Creatinine 0.9 mg/dL (0.7-1.3) Estimated GFR (Cockcroft-Gault) 84.4 BUN/Creatinine Ratio 9 (6-20) Glucose Level 118 mg/dL (70-99) Calcium Level 8.3 mg/dL (8.5-10.1) Magnesium Level 2.1 mg/dL (1.8-2.4) Total Bilirubin 0.3 mg/dL (0.2-1.0) Aspartate Amino Transf (AST/SGOT) 16 U/L (15-37) Alanine Aminotransferase (ALT/SGPT) 28 U/L (16-63) Alkaline Phosphatase 79 U/L (46-116) Troponin I Quantitative < 0.017 ng/mL (0.000-0.055) EL-Lve-L-Type Natriuretic Peptide 57 pg/mL (0-124) Total Protein 7.3 g/dL (6.4-8.2) Albumin 3.8 g/dL (3.4-5.0) Albumin/Globulin Ratio 1.1 (1.0-1.7) Urine Collection Type U cath Urine Color Yellow Urine Clarity Clear Urine pH 6.0 (<5.0-8.0) Urine Specific [place] >=1.030 (1.000-1.030) Urine Protein 30 mg/dL (NEG-TRACE) Urine Glucose (UA) >=1000 mg/dL (NEG) Urine Ketones (Stick) Negative mg/dL (NEG) Urine Blood Negative (NEG) Urine Nitrite Negative (NEG) Urine Bilirubin Negative (NEG) Urine Urobilinogen Dipstick 0.2 mg/dL (0.2 mg/dL) Urine Leukocyte Esterase Negative (NEG) Urine RBC 0 /HPF (0-2) Urine WBC Occ /HPF (0-4) Urine Squamous Epithelial Cells Occ /LPF Urine Bacteria 0 /HPF (0-FEW) Images Images CT HEAD WITHOUT CONTRAST History: Reason: RT HAND NUMBNESS / Spl. Instructions: / History: Comparison: Brain MR without contrast June 08, 2018. Technique: Axial images are obtained of the head from the skull base through the vertex without IV contrast. Findings: No mass-effect, midline shift, extra-axial fluid collection, hemorrhage, or obvious acute infarction is identified. Basilar cisterns are patent. The ventricles and sulci are prominent, consistent with age-related cerebral atrophy. There is mild periventricular white matter hypoattenuation. This is a nonspecific finding but is commonly due to chronic small vessel ischemic disease. Old left thalamic lacunar infarct. Bone windows demonstrate no acute calvarial abnormality. The visualized paranasal sinuses are clear. Mastoid air cells are well aerated. IMPRESSION: 1. No acute intracranial abnormality. 2. Mild generalized cerebral atrophy and mild periventricular white matter c hanges probably due to chronic small vessel ischemic disease. 3. Old left thalamic lacunar infarct. CTA HEAD AND NECK W/WO CONTRAST Clinical Indication: Reason: RT HAND NUMBNESS Comparison: CT head without contrast, earlier same day. CTA head and neck, 09/15/2017. Technique: Helical CT imaging from inferior to the aortic arch to the skull vertex is performed after 75 cc of Omnipaque [address] angiogram protocol. 3-D MIP reconstructions of the cervical carotid arteries and [place] are performed. PQRS Compliance Statement - Stenosis calculations for CT, MR and conventional angiography are based upon measurement of the distal ICA diameter in accordance with the NASCET methodology. Stenosis calculations for carotid ultrasound willy dies are derived from validated velocity criteria which are known to correlate with the NASCET methodology. Findings: Aortic arch branches are patent. Proximal right common carotid arteries are obscured due to beam hardening artifact. Otherwise, the common carotid arteries are patent. The common carotid arteries at the level of C6 are near midline. Carotid bifurcations are patent. The cervical internal carotid arteries are patent. The right is tortuous. The cervical vertebral arteries are patent. The right is small caliber. Basilar artery is patent. There is 3 mm segment of severe stenosis of the left P2 segment, increased from prior study, image 247. There is poststenotic dilation. Finding does not appear acute. The right posterior cerebral artery is patent. Distal internal carotid arteries are patent. Anterior circulation is intact. No evidence of intracranial aneurysm. No abnormal enhancement of the brain parenchyma is identified. There is no cervical adenopathy. Parotid, submandibular, and thyroid glands are symmetric. The upper lungs are clear. There is degenerative spondylosis of the cervical spine. The alignment is maintained. IMPRESSION: 1. No acute intracranial large vessel occlusion. 2. There is severe focal stenosis of the left P2 segment. 3. No significant stenosis of the cervical carotid or vertebral arteries. Assessment/Plan Assessment/Plan Impression: Old left thalamic stroke, recurrent symptoms, we have not found recurrent stroke during the last admissions. Already on statin and aspirin, has also been on clopidogrel in the past Recommendations: MRI of the brain tomorrow Echocardiogram Aspirin and statin for now Rehabilitation modalities Rehab screening Also see stroke orders Modifying risk factors: reduce alcohol use, monitor sugars, blood pressure, and cholesterol. He possibly may be able to go home as soon as tomorrow. Thank you for letting me help with the patient's care. SIENA CASEY MD December 24, 2020 14:44
[2020-12-24] MEDS ORDERED: ASPIRIN RECTAL 300 MG SUPP. PR PRN (14:45)
[2020-12-24 15:00] VITALS: BP 148/80
[2020-12-24] MEDS: MULTIVITAMIN with MINERAL TABLET. PO SCH (15:00)
[2020-12-24] MEDS ORDERED: ASPIRIN CHEWABLE 81 MG TABLET. PO SCH (15:00)
[2020-12-24] MEDS: METOPROLOL SUCC 24HR ER 50 MG TAB.ER.24H. PO SCH (15:00)
[2020-12-24] MEDS: CLOPIDOGREL BISULFATE 75 MG TABLET PO SCH (15:00)
[2020-12-24] MEDS ORDERED: FOLIC ACID 1 MG TABLET. PO SCH ×2 (15:00→21:00)
[2020-12-24] MEDS ORDERED: LOSARTAN POTASSIUM 50 MG TABLET. PO SCH ×2 (15:00→21:00)
[2020-12-24] MEDS: FLUTICASONE 50MCG/NASAL SPRAY 16GM BOTTLE. NS SCH (15:00)
[2020-12-24] MEDS ORDERED: EMPA10TA PO (15:16)
[2020-12-24] MEDS ORDERED: VITA400C37 PO (15:16)
[2020-12-24] MEDS: ASPIRIN ENTERIC COATED 325 MG TABLET.DR. PO SCH (15:18)
[2020-12-24] MEDS: PANTOPRAZOLE 40 MG TABLET.DR. PO SCH (15:19)
[2020-12-24] MEDS: ENOXAPARIN 40 MG/0.4 ML SYRINGE. SQ SCH (15:52)
[2020-12-24] MEDS: IV NORMAL SALINE 1000ML BAG 1,000 ML IV SCH (15:52)
[2020-12-24] MEDS: INSULIN LISPRO 300 UNITS/3 ML VIAL. SQ SCH (17:00)
--- NOTE | 2020-12-24 19:29 | EKG ---
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
[2020-12-24 19:54] VITALS: BP 160/80
[2020-12-24] MEDS ORDERED: ATORVASTATIN CALCIUM 40 MG TABLET. PO SCH (21:00)
[2020-12-24] MEDS: OMEGA-3 FATTY ACIDS/FISH OIL 1,000 MG CAPSULE. PO SCH (21:35)
[2020-12-24 23:07] VITALS: BP 151/74
[2020-12-25] MEDS: IV NORMAL SALINE 1000ML BAG 1,000 ML IV SCH ×2 (01:19→11:54)
[2020-12-25 03:18] VITALS: BP 154/74
[2020-12-25 07:00] VITALS: BP 170/68
[2020-12-25] MEDS: INSULIN LISPRO 300 UNITS/3 ML VIAL. SQ SCH ×2 (08:00→11:38)
--- NOTE | 2020-12-25 08:04 | RAD ---
EXAM: MRI BRAIN WO 12/25/2020 7:14 AM CLINICAL INDICATION: Right-sided numbness, stroke symptoms. COMPARISON: MRI brain 06/08/2018 TECHNIQUE: Multiplanar multisequence MR images of the brain without contrast FINDINGS: No restricted diffusion to suggest acute or recent infarct. Ventricles and sulci are mildl y enlarged, unchanged. Old small lacunar infarct in the left thalamus is unchanged. A few small periv entricular and deep T2 hyperintense white matter lesions are unchanged. There is no extra-axial fluid collection. No intracranial hemorrhage. No susceptibility. The vascular flow voids are normal. Globe s and orbits are intact. Mild mucosal thickening in the ethmoid air cells. Mastoid air cells are mayte r. The calvarium is intact. IMPRESSION: 1. No acute intracranial abnormality. 2. Unchanged very mild white matter disease, nonspecific but may be related to chronic microvascular ischemia. Unchanged old small lacunar infarct in the left thalamus. 3. Mild volume loss. Electronically signed by: Marybel Croft MD (12/25/2020 8:02 AM) [id number]
[2020-12-25] MEDS: MULTIVITAMIN with MINERAL TABLET. PO SCH (08:29)
[2020-12-25] MEDS: ASPIRIN ENTERIC COATED 325 MG TABLET.DR. PO SCH (08:29)
[2020-12-25] MEDS: PANTOPRAZOLE 40 MG TABLET.DR. PO SCH (08:30)
[2020-12-25] MEDS: METOPROLOL SUCC 24HR ER 50 MG TAB.ER.24H. PO SCH (08:30)
[2020-12-25] MEDS: CLOPIDOGREL BISULFATE 75 MG TABLET PO SCH (08:30)
[2020-12-25] MEDS: OMEGA-3 FATTY ACIDS/FISH OIL 1,000 MG CAPSULE. PO SCH (08:30)
[2020-12-25] MEDS: FLUTICASONE 50MCG/NASAL SPRAY 16GM BOTTLE. NS SCH (08:31)
[2020-12-25 09:14] LABS: CALCIUM 8.1 mg/dL (8.5-10.1); CREATININE 0.8 mg/dL (0.7-1.3); GFR 96.7; POTASSIUM 3.8 mmol/L (3.5-5.1)
[2020-12-25 09:25] LABS: CHOLESTEROL/HDL RATIO 3.3
[2020-12-25 11:04] VITALS: BP 143/75
[2020-12-25] MEDS ORDERED: ASPI325T11 PO (14:45)
--- NOTE | 2020-12-25 14:46 | DISCH ---
DISCHARGE INSTRUCTIONS Condition on Discharge Condition on Discharge: Stable Activity After Discharge Activity Instructions for Disc: Resume previous activity Exercise Instruction after Dis: Walk 10 min, 3 x per day Diet after Discharge Diet after Discharge: Diabetic No Calorie Level Checks after Discharge Checks after discharge: Check blood press - daily Contacting the DR. after DC Call your doctor for: If your condition worsens ANJUM BOLES MD December 25, 2020 14:46
--- NOTE | 2020-12-25 15:17 | PDOC ---
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 There is no evidence of acute stroke this time, either. Already on statin and aspirin, has also been on clopidogrel in the past Plan I discussed with patient that he is simply having recurrent symptoms from the old stroke, no sign of new stroke, this recurrence of symptoms may be related to fluctuations of blood pressure, sugars, or even anxiety levels. I reassured the patient that he is not "crying woodward," and that he should return to the emergency room per his discretion for any increased symptoms. I ordered echocardiogram, but that can be done as an outpatient and is optional Aspirin and statin for now Modifying risk factors: reduce alcohol use, monitor sugars, blood pressure, and cholesterol. Okay to go home Subjective Numbness has returned to baseline Objective Vital Signs Date Time Temp Pulse Resp B/P (MAP) Pulse Ox O2 Delivery O2 Flow Rate FiO2 12/25/20 11:04 97.8 67 20 143/75 (97) 97 Room Air 97.8 Intake and Output 12/25/20 07:00 Intake Total 1540 ml Output Total 850 ml Balance 690 ml Intake Oral 540 ml IV Total 1000 ml Output Urine Total 850 ml # Bowel Movements 1 PHYSICAL EXAM Alert. Oriented to time, place and person. PERRL. EOMI. CN: no focal findings. Muscle tone: normal. Muscle strength: 5/5 DTR: 1+ Plantar reflex: Flexor Gait: normal. Sensory exam: Stocking loss, no longer has the right hemihypesthesia. No cerebellar signs elicited. Review of Relevant I have reviewed the following items manasa (where applicable) has been applied. Labs Laboratory Tests Test 12/24/20 09:55 12/24/20 11:30 12/24/20 12:05 12/24/20 16:49 Glucose (Fingerstick) 194 mg/dL (70-99) 107 mg/dL (70-99) White Blood Count 6.3 x10^3/uL (4.0-11.0) Red Blood Count 4.42 x10^6/uL (4.30-5.70) Hemoglobin 14.7 g/dL (13.0-17.5) Hematocrit 42.7 % (39.0-53.0) Mean Corpuscular Volume 97 fL (79-100) Mean Corpuscular Hemoglobin 33 pg (25-35) Mean Corpuscular Hemoglobin Concent 34 g/dL (31-37) Red Cell Distribution Width 12.5 % (11.5-14.5) Platelet Count 212 x10^3/uL (140-400) Neutrophils (%) (Auto) 57 % (31-73) Lymphocytes (%) (Auto) 26 % (24-48) Monocytes (%) (Auto) 15 % (0-9) Eosinophils (%) (Auto) 2 % (0-3) Basophils (%) (Auto) 1 % (0-3) Neutrophils # (Auto) 3.6 x10^3/uL (1.8-7.7) Lymphocytes # (Auto) 1.6 x10^3/uL (1.0-4.8) Monocytes # (Auto) 0.9 x10^3/uL (0.0-1.1) Eosinophils # (Auto) 0.1 x10^3/uL (0.0-0.7) Basophils # (Auto) 0.0 x10^3/uL (0.0-0.2) Prothrombin Time 12.7 SEC (11.7-14.0) Prothromb Time International Ratio 1.0 (0.8-1.1) Sodium Level 146 mmol/L (136-145) Potassium Level 4.1 mmol/L (3.5-5.1) Chloride Level 106 mmol/L (98-107) Carbon Dioxide Level 28 mmol/L (21-32) Anion Gap 12 (6-14) Blood Urea Nitrogen 8 mg/dL (8-26) Creatinine 0.9 mg/dL (0.7-1.3) Estimated GFR (Cockcroft-Gault) 84.4 BUN/Creatinine Ratio 9 (6-20) Glucose Level 118 mg/dL (70-99) Calcium Level 8.3 mg/dL (8.5-10.1) Magnesium Level 2.1 mg/dL (1.8-2.4) Total Bilirubin 0.3 mg/dL (0.2-1.0) Aspartate Amino Transf (AST/SGOT) 16 U/L (15-37) Alanine Aminotransferase (ALT/SGPT) 28 U/L (16-63) Alkaline Phosphatase 79 U/L (46-116) Troponin I Quantitative < 0.017 ng/mL (0.000-0.055) YD-Xkn-C-Type Natriuretic Peptide 57 pg/mL (0-124) Total Protein 7.3 g/dL (6.4-8.2) Albumin 3.8 g/dL (3.4-5.0) Albumin/Globulin Ratio 1.1 (1.0-1.7) Urine Collection Type U cath Urine Color Yellow Urine Clarity Clear Urine pH 6.0 (<5.0-8.0) Urine Specific [place] >=1.030 (1.000-1.030) Urine Protein 30 mg/dL (NEG-TRACE) Urine Glucose (UA) >=1000 mg/dL (NEG) Urine Ketones (Stick) Negative mg/dL (NEG) Urine Blood Negative (NEG) Urine Nitrite Negative (NEG) Urine Bilirubin Negative (NEG) Urine Urobilinogen Dipstick 0.2 mg/dL (0.2 mg/dL) Urine Leukocyte Esterase Negative (NEG) Urine RBC 0 /HPF (0-2) Urine WBC Occ /HPF (0-4) Urine Squamous Epithelial Cells Occ /LPF Urine Bacteria 0 /HPF (0-FEW) Test 12/24/20 21:13 12/25/20 08:07 12/25/20 08:15 12/25/20 11:28 Glucose (Fingerstick) 129 mg/dL (70-99) 132 mg/dL (70-99) 144 mg/dL (70-99) Sodium Level 141 mmol/L (136-145) Potassium Level 3.8 mmol/L (3.5-5.1) Chloride Level 106 mmol/L (98-107) Carbon Dioxide Level 25 mmol/L (21-32) Anion Gap 10 (6-14) Blood Urea Nitrogen 8 mg/dL (8-26) Creatinine 0.8 mg/dL (0.7-1.3) Estimated GFR (Cockcroft-Gault) 96.7 Glucose Level 132 mg/dL (70-99) Calcium Level 8.1 mg/dL (8.5-10.1) Triglycerides Level 258 mg/dL (0-150) Cholesterol Level 122 mg/dL (0-200) LDL Cholesterol, Calculated 33 mg/dL (0-100) VLDL Cholesterol, Calculated 52 mg/dL (0-40) Non-HDL Cholesterol Calculated 85 mg/dL (0-129) HDL Cholesterol 37 mg/dL (40-60) Cholesterol/HDL Ratio 3.3 Laboratory Tests Test 12/24/20 16:49 12/24/20 21:13 12/25/20 08:07 12/25/20 08:15 Glucose (Fingerstick) 107 mg/dL (70-99) 129 mg/dL (70-99) 132 mg/dL (70-99) Sodium Level 141 mmol/L (136-145) Potassium Level 3.8 mmol/L (3.5-5.1) Chloride Level 106 mmol/L (98-107) Carbon Dioxide Level 25 mmol/L (21-32) Anion Gap 10 (6-14) Blood Urea Nitrogen 8 mg/dL (8-26) Creatinine 0.8 mg/dL (0.7-1.3) Estimated GFR (Cockcroft-Gault) 96.7 Glucose Level 132 mg/dL (70-99) Calcium Level 8.1 mg/dL (8.5-10.1) Triglycerides Level 258 mg/dL (0-150) Cholesterol Level 122 mg/dL (0-200) LDL Cholesterol, Calculated 33 mg/dL (0-100) VLDL Cholesterol, Calculated 52 mg/dL (0-40) Non-HDL Cholesterol Calculated 85 mg/dL (0-129) HDL Cholesterol 37 mg/dL (40-60) Cholesterol/HDL Ratio 3.3 Test 12/25/20 11:28 Glucose (Fingerstick) 144 mg/dL (70-99) Medications Current Medications Sodium Chloride 1,000 ml @ 1,000 mls/hr 1X ONCE IV Last administered on 12/24/20at 12:36; Start 12/24/20 at 11:00; Stop 12/24/20 at 11:59; Status DC Iohexol (Omnipaque 300 Mg/ml) 75 ml 1X ONCE IV Last administered on 12/24/20at 12:31; Start 12/24/20 at 13:00; Stop 12/24/20 at 13:01; Status DC Info (CONTRAST GIVEN -- Rx MONITORING) 1 each PRN DAILY PRN MC SEE COMMENTS; Start 12/24/20 at 12:30; Stop 12/26/20 at 12:29 Aspirin (Aspirin Chewable) 81 mg DAILY PO ; Start 12/24/20 at 15:00; Stop 12/24/20 at 14:49; Status DC Clopidogrel Bisulfate (Plavix) 75 mg DAILYWBKFT PO Last administered on 12/25/20at 08:30; Start 12/24/20 at 15:00 Losartan Potassium (Cozaar) 50 mg DAILY PO ; Start 12/24/20 at 15:00; Stop 12/24/20 at 15:45; Status DC Metformin HCl (Glucophage) 500 mg BIDWMEALS PO ; Start 12/26/20 at 17:00 Metoprolol Succinate (Toprol Xl) 100 mg DAILY08 PO Last administered on 1at 08:30; Start 12/24/20 at 15:00 Fish Oil (Fish Oil) 1,000 mg BID PO Last administered on 12/25/20at 08:30; Start 12/24/20 at 21:00 Atorvastatin Calcium (Lipitor) 80 mg QHS PO Last administered on 12/24/20at 21:35; Start 12/24/20 at 21:00 Fluticasone Propionate (Flonase) 2 spray DAILY NS ; Start 12/24/20 at 15:00 Pantoprazole Sodium (Protonix) 40 mg DAILYAC PO Last administered on 12/25/20at 08:30; Start 12/24/20 at 16:30 Multivitamins (Thera M Plus) 1 tab DAILY PO Last administered on 12/25/20at 08:29; Start 12/24/20 at 15:00 Sodium Chloride (Normal Saline Flush) 3 ml QSHIFT PRN IV AFTER MEDS AND BLOOD DRAWS; Start 12/24/20 at 14:15 Sodium Chloride 1,000 ml @ 100 mls/hr Q10H IV Last administered on 12/25/20at 11:54; Start 12/24/20 at 15:00 Ondansetron HCl (Zofran) 4 mg PRN Q4HRS PRN IV NAUSEA/VOMITING; Start 12/24/20 at 14:15 Acetaminophen (Tylenol) 650 mg PRN Q4HRS PRN PO TEMP OVER 100.4F OR MILD PAIN; Start 12/24/20 at 14:15 Acetaminophen (Tylenol Supp) 650 mg PRN Q4HRS PRN AR TEMP OVER 100.4F OR MILD PAIN; Start 12/24/20 at 14:15 Al Hydroxide/Mg Hydroxide (Mylanta Plus Xs) 30 ml PRN DAILY PRN PO HEARTBURN / GAS; Start 12/24/20 at 14:15 Sodium Monofluorophosphate (Fleet Adult) 133 ml PRN DAILY PRN AR CONSTIPATION; Start 12/24/20 at 14:15 Docusate Sodium (Colace) 100 mg PRN BID PRN PO HARD STOOLS; Start 12/24/20 at 14:15 Albuterol Sulfate (Ventolin Neb Soln) 2.5 mg PRN Q4HRS PRN NEB SHORTNESS OF BREATH; Start 12/24/20 at 14:15 Guaifenesin (Robitussin) 200 mg PRN Q4HRS PRN PO COUGH; Start 12/24/20 at 14:15 Lorazepam (Ativan) 0.5 mg PRN Q4HRS PRN PO ANXIETY / AGITATION; Start 12/24/20 at 14:15 Enoxaparin Sodium (Lovenox 40mg Syringe) 40 mg Q24H SQ Last administered on 12/24/20at 15:52; Start 12/24/20 at 16:00 Folic Acid (Folic Acid) 1 mg DAILY PO ; Start 12/24/20 at 15:00; Stop 12/24/20 at 15:45; Status DC Insulin Human Lispro (HumaLOG) 0-5 UNITS TIDWMEALS SQ ; Start 12/24/20 at 17:00 Dextrose (Dextrose 50%-Water Syringe) 12.5 gm PRN Q15MIN PRN IV SEE COMMENTS; Start 12/24/20 at 14:30 Aspirin (Ecotrin) 325 mg DAILYWBKFT PO Last administered on 12/25/20at 08:29; Start 12/24/20 at 15:30 Aspirin (Aspirin Rectal Supp) 300 mg PRN DAILY PRN AR IF UNABLE TO TAKE PO; Start 12/24/20 at 14:45 Folic Acid (Folic Acid) 1 mg QHS PO Last administered on 12/24/20at 21:36; Start 12/24/20 at 21:00 Losartan Potassium (Cozaar) 50 mg QHS PO Last administered on 12/24/20at 21:36; Start 12/24/20 at 21:00 Active Scripts Active Aspirin Ec (Aspirin) 325 Mg Tablet.dr 325 Mg PO DAILYWBKFT 30 Days Clopidogrel (Clopidogrel Bisulfate) 75 Mg Tablet 75 Mg PO DAILYWBKFT 30 Days Reported Jardiance (Empagliflozin) 10 Mg Tablet 10 Mg PO DAILY Vitamin E (Vitamin E Acetate) 400 Unit Capsule 400 Unit PO DAILY Atorvastatin Calcium 80 Mg Tablet 80 Mg PO HS Metformin Hcl 500 Mg Tablet 500 Mg PO BIDWMEALS Sulfasalazine 500 Mg Tablet 500 Mg PO BID Omeprazole 20 Mg Tablet.dr 2 Tab PO DAILY Metoprolol Succinate 50 Mg Tab.er.24h 100 Mg PO Losartan Potassium 50 Mg Tablet 50 Mg PO DAILY Folic Acid 0.8 Mg Capsule 0.8 Mg PO Fish Oil 1,000 Mg Capsule ([place]-3 Fatty Acids/Fish Oil) 1 Each Capsule 1 Each PO BID Daily Meg (Multivitamin) 1 Each Tablet 1 Each PO Zyrtec (Cetirizine Hcl) 10 Mg Capsule 10 Mg PO Vitals/I & O Vital Sign - Last 24 Hours 12/24/20 12/24/20 12/24/20 12/24/20 16:03 16:16 19:54 20:00 Temp 98.3 98.3 Pulse 68 Resp 16 B/P (MAP) 160/80 (106) Pulse Ox 95 93 O2 Delivery Room Air Room Air Room Air Room Air 12/24/20 12/24/20 12/25/20 12/25/20 21:36 23:07 03:18 07:00 Temp 98.1 98.7 98.5 98.1 98.7 98.5 Pulse 68 62 63 66 Resp 18 16 20 B/P (MAP) 160/80 151/74 (99) 154/74 (100) 170/68 (102) Pulse Ox 95 94 95 O2 Delivery Room Air Room Air Room Air 12/25/20 12/25/20 12/25/20 08:00 08:30 11:04 Temp 97.8 97.8 Pulse 63 67 Resp 20 B/P (MAP) 154/74 143/75 (97) Pulse Ox 97 O2 Delivery Room Air Room Air Intake and Output 12/24/20 12/24/20 12/25/20 15:00 23:00 07:00 Intake Total 1000 ml 540 ml 0 ml Output Total 850 ml Balance 1000 ml -310 ml 0 ml Images MRI BRAIN WO 12/25/2020 7:14 AM CLINICAL INDICATION: Right-sided numbness, stroke symptoms. COMPARISON: MRI brain 06/08/2018 TECHNIQUE: Multiplanar multisequence MR images of the brain without contrast FINDINGS: No restricted diffusion to suggest acute or recent infarct. Ventricles and sulci are mildly enlarged, unchanged. Old small lacunar infarct in the left thalamus is unchanged. A few small periventricular and deep T2 hyperintense white matter lesions are unchanged. There is no extra-axial fluid collection. No intracranial hemorrhage. No susceptibility. The vascular flow voids are normal. Globes and orbits are intact. Mild mucosal thickening in the ethmoid air cells. Mastoid air cells are clear. The calvarium is intact. IMPRESSION: 1. No acute intracranial abnormality. 2. Unchanged very mild white matter disease, nonspecific but may be related to chronic microvascular ischemia. Unchanged old small lacunar infarct in the left thalamus. 3. Mild volume loss. Justicifation of Admission Dx: Justifications for Admission: Justification of Admission Dx: Yes Comments: SIENA BRADY MD December 25, 2020 15:17
--- NOTE | 2020-12-25 15:46 | PDOC ---
GENERAL General: Discharge summary [id number] VITAL SIGNS Vital Signs/I&O: Vital Signs Date Time Temp Pulse Resp B/P (MAP) Pulse Ox O2 Delivery O2 Flow Rate FiO2 12/25/20 11:04 97.8 67 20 143/75 (97) 97 Room Air 97.8 I & O 12/24/20 12/24/20 12/25/20 15:00 23:00 07:00 Intake Total 1000 ml 540 ml 0 ml Output Total 850 ml Balance 1000 ml -310 ml 0 ml ALLERGIES Allergies: Allergies Coded Allergies Type Severity Reaction Last Updated Verified No Known Drug Allergies 07/30/17 No MEDS Medications: Current Medications Medications (Trade) Dose Ordered Sig/Tree Route PRN Reason Start Time Stop Time Status Last Admin Dose Admin Fish Oil (Fish Oil) 1,000 mg BID PO 12/24/20 21:00 12/25/20 08:30 Atorvastatin Calcium (Lipitor) 80 mg QHS PO 12/24/20 21:00 12/24/20 21:35 Pantoprazole Sodium (Protonix) 40 mg DAILYAC PO 12/24/20 16:30 12/25/20 08:30 Enoxaparin Sodium (Lovenox 40mg Syringe) 40 mg Q24H SQ 12/24/20 16:00 12/24/20 15:52 Folic Acid (Folic Acid) 1 mg QHS PO 12/24/20 21:00 12/24/20 21:36 Losartan Potassium (Cozaar) 50 mg QHS PO 12/24/20 21:00 12/24/20 21:36 LAB Lab: Laboratory Tests Test 12/24/20 16:49 12/24/20 21:13 12/25/20 08:07 12/25/20 08:15 Glucose (Fingerstick) 107 mg/dL (70-99) H 129 mg/dL (70-99) H 132 mg/dL (70-99) H Sodium Level 141 mmol/L (136-145) Potassium Level 3.8 mmol/L (3.5-5.1) Chloride Level 106 mmol/L (98-107) Carbon Dioxide Level 25 mmol/L (21-32) Anion Gap 10 (6-14) Blood Urea Nitrogen 8 mg/dL (8-26) Creatinine 0.8 mg/dL (0.7-1.3) Estimated GFR (Cockcroft-Gault) 96.7 Glucose Level 132 mg/dL (70-99) H Calcium Level 8.1 mg/dL (8.5-10.1) L Triglycerides Level 258 mg/dL (0-150) H Cholesterol Level 122 mg/dL (0-200) LDL Cholesterol, Calculated 33 mg/dL (0-100) VLDL Cholesterol, Calculated 52 mg/dL (0-40) H Non-HDL Cholesterol Calculated 85 mg/dL (0-129) HDL Cholesterol 37 mg/dL (40-60) L Cholesterol/HDL Ratio 3.3 Test 12/25/20 11:28 Glucose (Fingerstick) 144 mg/dL (70-99) H Laboratory Tests 12/25/20 08:15 Justifications for Admission Other Justification ANJUM BOLES MD December 25, 2020 15:46
[2020-12-25] MEDS: ENOXAPARIN 40 MG/0.4 ML SYRINGE. SQ SCH (16:00)
--- NOTE | 2020-12-25 16:15 | NUR ---
Discharge Note: GIUSEPPE PINA Discharge instructions and discharge home medications reviewed with Patient and a copy given. All questions have been answered and understanding verbalized. The following instructions and handouts were given: aspirin. Patient discharged to home with self care via wheelchair.
--- NOTE | 2020-12-25 20:42 | DS ---
DATE OF DISCHARGE: 12/25/2020 HOSPITAL COURSE: This patient is a 65-year-old man who is a continuity outpatient [facility] I am rounding for them this weekend. The patient presented to the Emergency Department yesterday afternoon with increasing right arm numbness, tingling, and weakness. The patient did have a thalamic stroke in 2018 and has residual symptoms from that, but felt that his symptoms were escalating. He has had several emergency department visits in the last couple of years with the same situation. Concern is for new stroke. The patient was seen by neurology yesterday evening and this afternoon and workup is unremarkable for acute abnormality. Dr. Sage feels that his symptoms may be exacerbated by fluctuations in blood pressure or even anxiety. The patient tells me this afternoon that he is feeling back at his baseline, though maybe slightly worse on his paresthesias. I asked him to speak with Dr. Childs about potentially working up peripheral neuropathy to round out his assessment of this escalating issue. He can have EMG and MR cervical spine if needed as an outpatient. The patient is very comfortable discharging home. He is on optimal medical management for stroke prevention. Physical exam this afternoon is notable for that the patient has been afebrile, blood pressure is in the 140 to 150s/70s. He tells me it is better at home. Heart rate is in the 60s and regular. He is breathing comfortably and saturating normally on room air. PHYSICAL EXAMINATION: GENERAL: He is a pleasant 65-year-old man, alert and oriented x3 in no acute distress. HEENT: Unremarkable. NECK: Soft and supple. No adenopathy or thyromegaly noted. CHEST: Clear to auscultation. HEART: S1, S2 normal. Regular rate and rhythm. No murmurs or gallops are noted. ABDOMEN: Soft, nontender, nondistended. No masses or organomegaly noted. EXTREMITIES: Notable for some repetitive clenching and involuntary movements of that right hand that can be frustrating for the patient. Strength is full throughout. Greater than 30 minutes were spent on coordinating this discharge with greater than 50% in counseling and coordination of care, most of which in discussion with the patient. FINAL DIAGNOSES: 1. Right arm paresthesias, likely related to an old thalamic stroke, but we are advising further assessment for peripheral neuropathy as an outpatient. Workup here is negative for acute stroke. No change was made in the patient's medication regimen.. PRISCA/ANI DR: Mark TID: [id number] CC: WINSTON CHILDS MD
[2020-12-26] MEDS ORDERED: metFORMIN 500 MG TABLET PO SCH (17:00)
== END 2020-12-25 16:15 | disposition home or self-care (01) ==
LOC: ER 09:51 → 2 NORTH 12:49
PROVIDERS: ADMIT Family Medicine; ATTEND Family Medicine
DX: G31.9 Degenerative disease of nervous system, unspecified (principal); I10 Essential (primary) hypertension; E66.01 Morbid (severe) obesity due to excess calories; E11.51 Type 2 diabetes mellitus with diabetic peripheral angiopathy without gangrene; R42 Dizziness and giddiness; I63.9 Cerebral infarction, unspecified; I69.349 Monoplegia of lower limb following cerebral infarction affecting unspecified side; K51.90 Ulcerative colitis, unspecified, without complications; E78.00 Pure hypercholesterolemia, unspecified; R20.2 Paresthesia of skin; M19.90 Unspecified osteoarthritis, unspecified site; R29.700 NIHSS score 0; E78.5 Hyperlipidemia, unspecified; Z51.5 Encounter for palliative care; Z79.02 Long term (current) use of antithrombotics/antiplatelets; Z79.82 Long term (current) use of aspirin; Z87.442 Personal history of urinary calculi; Z79.899 Other long term (current) drug therapy; Z98.890 Other specified postprocedural states; Z79.84 Long term (current) use of oral hypoglycemic drugs; Z68.37 Body mass index [BMI] 37.0-37.9, adult
CPT/HCPCS: 36415; 70450; 70496; 70498; 70551; 71045; 80048; 80053; 80061; 81001; 82962; 83735; 83880; 84484; 85025; 85610; 93005; 94760; 96360; 96361; 96372; 97161; 97165; 97535; 99285; G0378; J1650; J1815; J7030; Q9967; G0379

== ENCOUNTER 2021-01-13 19:11 | Emergency (ER) | payer OTHER ==
[~2021-01-13] VITALS: Ht 177.8 cm; Wt 117.9 kg
[~2021-01-13 19:11] MED LIST changes: +ASPI325T11 PO; +EMPA10TA PO; +VITA400C37 PO
[2021-01-14] MEDS ORDERED: NEOMY/BACITR/POLYMYXIN OINT PACKET. TP ONE
[2021-01-14] MEDS ORDERED: NEOM28.33 TP (01:42)
[2021-01-14] MEDS ORDERED: CEPH500C PO (01:42)
--- NOTE | 2021-01-14 01:43 | PHYS DOC ---
Past Medical History Past Medical History: CVA, Diabetes-Type II, High Cholesterol, Hypertension, Kidney Stone, TIA, Other Additional Past Medical Histor: Ulcerative colitis, SLEEP APNEA Past Surgical History: Other Additional Past Surgical Histo: Hernia,L)hand surgery. Smoking Status: Never Smoker Alcohol Use: Occasionally Drug Use: None General Adult EDM: Chief Complaint: LACERATION/AVULSION HPI: HPI: 65-year-old male with multiple medical problems including CVA with right sided weakness, asthma [id number], presents the ED with , (patient consents to his/her/their knowledge and involvement in pts' medical care), complaints of cut to his left thumb while using a food slicer just prior to ED arrival. Cannot recall last tetanus. Review of Systems: Review of Systems: Constitutional: Denies fever or chills. [] Eyes: Denies change in visual acuity. [] HENT: Denies nasal congestion or sore throat. [] Respiratory: Denies cough or shortness of breath. [] Cardiovascular: Denies chest pain or edema. [] Musculoskeletal: Denies focal joint pain or swelling Integument: Denies rash or desquamation Heart Score: C/O Chest Pain: No Risk Factors: Risk Factors: DM, Current or recent (<one month) smoker, HTN, HLP, family history of CAD, obesity. Risk Scores: Score 0 - 3: 2.5% MACE over next 6 weeks - Discharge Home Score 4 - 6: 20.3% MACE over next 6 weeks - Admit for Clinical Observation Score 7 - 10: 72.7% MACE over next 6 weeks - Early Invasive Strategies Current Medications: Current Medications Medications (Trade) Dose Ordered Sig/Tree Start Time Stop Time Status Last Admin Dose Admin Neomycin/ Polymyxin/ Bacitracin (Triple Antibiotic Ointment) 1 pkt 1X ONCE 01/14/21 00:00 01/14/21 00:01 DC Allergies: Allergies: Allergies Coded Allergies Type Severity Reaction Last Updated Verified No Known Drug Allergies 07/30/17 No Physical Exam: PE: Constitutional: Well developed, well nourished, no acute distress, non-toxic appearance, obese HENT: Normocephalic, atraumatic, Eyes: EOMI, conjunctiva normal, no discharge. Neck: Normal range of motion, supple, Cardiovascular: S1/2 present, regular rhythm Lungs & Thorax: Speaking in full sentences, bilateral equal chest rise, no tachypnea or increased work of breathing Skin: Warm, dry, normal cap refill and skin turgor Extremities: Distal left thumb with tip of thumb completely missing, not involving the nail, no subungual hematoma Neurologic: Alert, left hand sensation and motor intact Psychologic: Affect normal,mood normal. [] EKG: EKG: [] Radiology/Procedures: Radiology/Procedures: [] Course & Med Decision Making: Course & Med Decision Making Pertinent Labs and Imaging studies reviewed. (See chart for details) Concern for distal fingertip avulsion injury. Dressings applied by RN. Wound care instructions given. Dragon Disclaimer: [email or web address] Disclaimer: This electronic medical record was generated, in whole or in part, using a voice recognition dictation system. Departure Departure Impression: Primary Impression: Fingertip avulsion Additional Impression: Need for Tdap vaccination Disposition: HOME / SELF CARE / HOMELESS Condition: STABLE Referrals: WINSTON CHILDS MD (PCP) For routine care Patient Instructions: Fingertip Infections, Fingertip Injuries and Amputations, VIS, Tetanus, Diphtheria (Td); Tetanus, Diphtheria, Pertussis (Tdap) - CDC Additional Instructions: [facility] FOR DEFII NITIVE MANAGEMENT WITHIN THE NEXT 7 DAYS Appointments may be made with Nilesh Montiel MD, Westley Armendariz MD, Kahlil Villar MD or Daquan Lott MD, by calling [phone] Scripts Neomycn/Baci Zn/Pmyx Bs/Pramox (NEOSPORIN + PAIN RELIEF OINT) 28.3 Gm Oint...g. 28.3 GM TP TID PRN for PAIN, #1 MISC Prov: KEVIN POLLARD DO 01/14/21 Cephalexin (CEPHALEXIN) 500 Mg Capsule 1 CAP PO QID for 10 Days, #40 CAP Prov: KEVIN POLLARD DO 01/14/21 KEVIN POLLARD DO Jan 14, 2021 01:43
[2021-01-14] MEDS ORDERED: DIPH,PERTUSS(ACELL),TET VAC/PF 0.5 ML SYRINGE. VAX IM ONE (01:45)
[2021-01-14 02:00] VITALS: BP 168/85
== END 2021-01-14 02:00 | disposition home or self-care (01) ==
LOC: ER 19:11
DX: S61.102A Unspecified open wound of left thumb with damage to nail, initial encounter (principal); J45.909 Unspecified asthma, uncomplicated; E11.9 Type 2 diabetes mellitus without complications; E78.00 Pure hypercholesterolemia, unspecified; I10 Essential (primary) hypertension; Z86.73 Personal history of transient ischemic attack (TIA), and cerebral infarction without residual deficits; W27.8XXA Contact with other nonpowered hand tool, initial encounter; Y93.89 Activity, other specified; Y92.89 Other specified places as the place of occurrence of the external cause; Y99.8 Other external cause status
CPT/HCPCS: 90471; 90715; 99283-25

== ENCOUNTER 2021-01-20 07:59 | Day surgery (SDC) | payer OTHER, MEDICARE ==
[~2021-01-20] VITALS: Ht 177.8 cm; Wt 113.0 kg
[~2021-01-20 07:59] MED LIST changes: +CEPH500C PO; +IV RINGERS,LACTATED 1000ML 1,000 ML IV SCH; +NEOM28.33 TP
[2021-01-20] MEDS ORDERED: LORA10TA3 PO (08:27)
[2021-01-20 08:42] VITALS: BP 162/78
[2021-01-20] MEDS ORDERED: PROPOFOL 10 MG/ML (20ML) VIAL. IV ONE (08:51)
[2021-01-20] MEDS ORDERED: LIDOCAINE 2% PF 5 ML VIAL. ONE (08:51)
[2021-01-20 09:32] VITALS: BP 137/78
--- NOTE | 2021-01-23 19:18 | PATHOLOGY ---
[facility] Accession Number: [id number] . 01 Material submitted: . PART A: colon - RIGHT COLON BIOPSY. Modifiers: right PART B: colon - TRANSVERSE COLON BIOPSY. Modifiers: transverse PART C: colon - LEFT COLON BIOPSY. Modifiers: left . 01 Clinical history: . HISTORY OF ULCERATIVE COLITIS COLONOSCOPY . 02 Diagnosis: A. Colonic mucosa, right colon biopsies: - Segments of colonic mucosa showing no evidence of active chronic colitis, dysplasia or malignancy. . B. Colonic mucosa, transverse colon biopsies: - Segments of colonic mucosa showing no evidence of active chronic colitis, dysplasia or malignancy. . C. Colonic mucosa, left colon biopsies: - Segments of colonic mucosa showing no evidence of active chronic colitis, dysplasia or malignancy. . (MARICRUZM:olena; 01/23/2021) [facility] 01/23/2021 1540 Local . 02 Comment: The right colon, transverse colon, and left colon biopsies appear similar and reveal segments of colonic mucosa having a relatively normal appearance and showing no evidence of active chronic colitis, dysplasia or malignancy. (ELMA:olena; 01/23/2021) . 02 Electronically signed: . Shahriar Ambrose MD, Pathologist NPI- [id number] . 01 Gross description: . A. Received in formalin labeled "Jaja Guy, right colon biopsy" are multiple zamora-brown soft tissue fragments measuring in aggregate 2.2 x 0.6 x 0.3 cm. The specimen is submitted entirely in A1. . B. Received in formalin labeled "Jaja Guy transverse colon biopsy" are multiple zamora-brown soft tissue fragments measuring in aggregate 1.9 x 0.9 x 0.3 cm. The specimen is submitted entirely in B1. . C. Received in formalin labeled "Guy Wilkinson left colon biopsy" are multiple zamora-brown soft tissue fragments measuring in aggregate 1.8 x 0.7 x 0.3 cm. The specimen is submitted entirely in C1. ([facility]; 01/21/2021) GZA/GZA 01/23/2021 1536 Local . 02 Pathologist provided ICD-10: K52.9, Z87.19, Z12.11 . 02 CPT . 818463, 305226, 707108 Specimen Comment: A courtesy copy of this report has been sent to [phone], [phone] Specimen Comment: [id number] Specimen Comment: Report sent to / DR CHILDS Performed at: 01 [facility] [address], [place] [id number] MD Mendoza Morrow MD Phone: [phone] Performed at: 02 [facility] [address] [place], [place] [id number] MD Shahriar Ambrose MD Phone: [phone]
== END 2021-01-20 09:51 | disposition home or self-care (01) ==
LOC: SURG 07:59
PROVIDERS: ATTEND Internal Medicine Gastroenterology
DX: K51.00 Ulcerative (chronic) pancolitis without complications (principal); K64.0 First degree hemorrhoids; K63.89 Other specified diseases of intestine; K21.9 Gastro-esophageal reflux disease without esophagitis; I10 Essential (primary) hypertension; E78.00 Pure hypercholesterolemia, unspecified; G47.30 Sleep apnea, unspecified; M19.90 Unspecified osteoarthritis, unspecified site; E11.9 Type 2 diabetes mellitus without complications; Z87.19 Personal history of other diseases of the digestive system; Z86.73 Personal history of transient ischemic attack (TIA), and cerebral infarction without residual deficits; Z79.82 Long term (current) use of aspirin; Z79.84 Long term (current) use of oral hypoglycemic drugs; Z79.899 Other long term (current) drug therapy; Z98.890 Other specified postprocedural states; Z72.89 Other problems related to lifestyle
CPT/HCPCS: 45380; J2704

== ENCOUNTER → 2021-07-20 | Outpatient (CLI) | payer OTHER ==
[~2021-07-20] MED LIST changes: -IV RINGERS,LACTATED 1000ML 1,000 ML IV SCH; +LORA10TA3 PO
[2021-07-20 12:28] LABS: ALBUMIN 2.4 g/dL (3.4-5.0); ALBUMIN/GLOBULIN RATIO 0.5 (1.0-1.7); CALCIUM 8.3 mg/dL (8.5-10.1); CREATININE 1.3 mg/dL (0.7-1.3); GFR 55.1; POTASSIUM 3.8 mmol/L (3.5-5.1); TOTAL BILIRUBIN 0.3 mg/dL (0.2-1.0); TOTAL PROTEIN 6.8 g/dL (6.4-8.2)
[2021-07-21 02:11] LABS: HEMOGLOBIN A1C 7.2 % (4.8-5.6)
== END ==
LOC: LAB 10:54
PROVIDERS: ATTEND Family Medicine
DX: I10 Essential (primary) hypertension (principal); E11.9 Type 2 diabetes mellitus without complications
CPT/HCPCS: 36415; 80053; 83036